=== PATIENT | male | born 1975 | race African-American/Black ===

== ENCOUNTER 2019-06-15 07:31 | Inpatient (IN) ==
--- NOTE | 2019-06-15 07:53 | Emergency Department Note ---
Disposition Clinical Impression: Femoral shaft fracture Qualifiers: Encounter type: initial encounter Fracture type: closed Fracture morphology: oblique Fracture alignment: nondisplaced Laterality: right Qualified Code(s): S72.334A - Nondisplaced oblique fracture of shaft of right femur, initial encounter for closed fracture Disposition: Admitted As Inpatient Condition: Good Time of Disposition: 09:56 Lower Extremity Injury HPI - General Chief Complaint: ED Extremity Injury, Lower Stated Complaint: poss hip fracture Time Seen by Provider: 06/15/19 07:32 Source: EMS Mode of arrival: EMS Limitations: language barrier Nursing Notes Reviewed: Yes Vital Signs Reviewed: Yes - History of Present Illness HPI Narrative: Mr. Prince is a 43 year old male with past medical history of diabetes which appears uncontrolled, gout, COPD, hypertension, bipolar, depression sent by ambulance for right leg pain. Pt recently had right hip displaced femoral neck fracture after a fall and had right hip arthroplasty on 06/05/19 and discharged to rehabilitation and discharged on 06/13/19 went to the ER the same day when he felt right hip pain while he was in shower. Pt was found prostatic femur fracture and was recommended hospitalization for further management yesterday. However pt left against medical advice. Pt tried to stand up this morning but fell from bed again. No weight bearing ever since. Pt decided to come back to ER and stay in hospital at this time. History was obtained through forest fire management officer as well as review of previous charts . Pt Subjective Complaint: hip injury Injury location: Right hip Onset (ago): day(s) (3) - Related Data Home Medications Medication Instructions Recorded Confirmed Albuterol Sulfate [Ventolin Hfa] 2 puff IH Q4H PRN 04/21/19 06/14/19 Allopurinol [Zyloprim 100 MG] 100 mg PO BID 04/21/19 06/14/19 Docusate [Colace] 100 mg PO BID 04/21/19 06/14/19 Escitalopram [Lexapro] 20 mg PO HS 04/21/19 06/14/19 Guaifenesin [Mucinex] 600 mg PO BID PRN 04/21/19 06/14/19 Insulin ASPART [NovoLOG] 0 units SQ QID 04/21/19 06/14/19 Insulin Glargine,Hum.rec.anlog 60 unit SQ BID 04/21/19 06/14/19 [Grace Jeffrey U-100] Liraglutide [Victoza 3-Teja] 1.8 mg SQ DAILY 04/21/19 06/14/19 Losartan Potassium [Cozaar] 50 mg PO DAILY 04/21/19 06/14/19 Omeprazole [PriLOSEC] 20 mg PO BID 04/21/19 06/14/19 Oxycodone HCl/Acetaminophen 1 tab PO QID PRN 04/21/19 06/14/19 [Percocet 10-325 mg Tablet] Ziprasidone HCl [Geodon] 80 mg PO BID 04/21/19 06/14/19 clonazePAM [Clonazepam] 2 mg PO QID 04/21/19 06/14/19 Pravastatin Sodium [Pravachol] 20 mg PO HS 06/04/19 06/14/19 Quetiapine Fumarate [Seroquel Xr] 300 mg PO BID 06/04/19 06/14/19 Bimatoprost [Lumigan] 1 drop BOTH EYES QPM 06/05/19 06/14/19 Diltiazem CD (24hr) [Cardizem CD] 180 mg PO HS 06/05/19 06/14/19 Ergocalciferol (VITAMIN D2) 50,000 unit PO SUWE 06/05/19 06/14/19 [Vitamin D2] Ketoconazole Shampoo [Nizoral 1 appl TP Q48H 06/05/19 06/14/19 Shampoo] Non-Formulary Medication 100 mg PO BID 06/05/19 06/14/19 Vit #108/Iron/FA 1 tab PO DAILY 06/05/19 06/14/19 [ One Tablet] clonazePAM [Clonazepam] 1 mg PO QID PRN 06/05/19 06/14/19 Previous Rx's Medication Instructions Recorded Furosemide [Lasix] 20 mg PO DAILY tablet 06/13/19 Magnesium Oxide [Mag-Ox] 400 mg PO DAILY #7 tablet 06/13/19 Potassium Chloride 20 meq PO BID #60 tab.er.prt 06/13/19 Rivaroxaban [Xarelto] 10 mg PO 1700 #21 tablet 06/13/19 Allergies Allergy/AdvReac Type Severity Reaction Status Date / Time fentanyl AdvReac See Verified 06/05/19 17:34 Comments IV CONTRAST DYE Allergy See Uncoded 06/05/19 17:34 Comments Constitutional: Denies: fever, chills Eyes: Denies: eye pain ENT ED: Denies: ear pain Cardiovascular: Denies: chest pain Respiratory: Denies: cough Gastrointestinal: Denies: abdominal pain Genitourinary: Denies: urgency Musculoskeletal: Reports: joint swelling, arthralgia (Right hip pain). Denies: back pain Integumentary: Denies: rash Neurological: Denies: headache Psychiatric: Denies: anxiety Endocrine: Denies: fatigue Hematological/Lymphatic: Denies: easy bleeding Allergic/Immunologic: Denies: facial swelling Past Medical History - Past Medical History Medical history: Reports: CHF, COPD, diabetes, GERD, glaucoma, hypertension, renal disease, seizures Surgical history: Reports: hip replacement Psychiatric history: Reports: bipolar, depression, other - Social History Smoking Status: Never smoker Smokeless Tobacco Status: No Alcohol use: Reports: rarely Drug use: Reports: none Physical Exam - General Limitations: no limitations General appearance: alert - Head Head exam: atraumatic - Eye Eye exam: Present: normal appearance - ENT ENT exam: normal exam - Neck Neck exam: Present: normal inspection - Chest Chest inspection: Present: normal inspection - Respiratory Respiratory exam: Present: normal lung sounds bilaterally - Cardiovascular Cardiovascular exam: Present: regular rate - Abdominal Exam Abdominal exam: Present: soft, Non-Tender - Expanded Lower Extremity Exam Hip/Pelvis exam: Present: normal inspection, tenderness. Absent: full ROM Neurovascular/Tendon exam: Present: normal capillary refill - Back Exam Back exam: Present: normal inspection, full ROM. Absent: tenderness - Neurological Exam Neurological exam: Present: alert, oriented X3 - Psychiatric Psychiatric exam: Present: normal affect - Skin Skin exam: Present: warm Course Vital Signs Temperature 99.0 F 06/15/19 07:45 Pulse Rate 104 06/15/19 07:45 Respiratory Rate 16 06/15/19 07:45 Blood Pressure 157/104 06/15/19 07:45 O2 Sat by Pulse Oximetry 100 06/15/19 07:45 Temperature 99.0 F 06/15/19 07:45 Pulse Rate 103 06/15/19 10:36 Respiratory Rate 18 06/15/19 10:36 Blood Pressure 158/106 06/15/19 10:36 O2 Sat by Pulse Oximetry 100 06/15/19 10:36 Oxygen Delivery Oxygen Delivery Room Air Extremity Injury, Lower - MDM Narrative Medical decision making narrative: 43-year-old male with right hip replacement, fell, presents with persistent right hip pain and nonweightbearing. Patient was found prostatitic fracture in the femur shaft yesterday. He was admitted to hospital. But patient signed AMA. Patient fell again this morning from bed. Repeat x-ray today indicated worsening displaced fracture fragment. Dr. Felix has seen the patient and agrees to re-admit patient for further evaluation. Spoke with on-call orthopedics Dr. Brown's nurse. Orthopedics is on board. Spoke with hospitalist Dr. Brothers. Pt is accepted. - Differential Diagnosis Likely: fracture - Lab Data Lab results reviewed: Yes I reviewed the patient's lab results. Result diagrams: 06/15/19 08:36 06/15/19 08:36 Lab Results 06/15/19 06/15/19 Range/Units 08:36 08:36 WBC 13.7 H (4.3-11.1) K/mcL RBC 3.74 L (4.19-5.50) M/mcL Hgb 9.9 L (12.9-16.9) g/dL Hct 32.6 L (37.5-50.1) % MCV 87.2 (83.0-100.0) fL MCH 26.5 L (28.0-33.3) pg MCHC 30.4 L (31.6-35.5) g/dL RDW 13.5 (11.5-14.5) % Plt Count 351 (140-400) K/mcL MPV 9.8 (9.4-12.4) fL Immature Gran % 1.9 (0-4) % Seg Neutrophils % 80.1 % Lymphocytes % 10.8 % Monocytes % 6.1 % Eosinophils % 0.8 % Basophils % 0.3 % Neutrophils # 11.0 H (1.6-8.9) K/mcL Lymphocytes # 1.5 (0.6-4.6) K/mcL Monocytes # 0.8 (0.0-1.3) K/mcL Eosinophils # 0.1 (0.0-0.6) K/mcL Basophils # 0.0 (0.0-0.2) K/mcL Sodium 134 L (136-145) mEq/L Potassium 3.9 (3.5-5.1) mEq/L Chloride 101 (98-107) mEq/L Carbon Dioxide 22 L (23-29) mEq/L BUN 14 (6-20) mg/dL Creatinine 0.82 (0.70-1.30) mg/dL Est GFR ( Amer) > 60 (> 60) Est GFR (Non-Af Amer) > 60 (> 60) BUN/Creatinine Ratio 17 (6-26) Glucose 222 H (70-105) mg/dL Calculated Osmolality 285 (280-300) Calcium 9.6 (8.6-10.3) mg/dL Total Bilirubin 0.3 (0.3-1.0) mg/dL AST 28 (13-39) Units/L ALT 23 (7-52) Units/L Alkaline Phosphatase 113 H (34-104) Units/L Serum Total Protein 7.6 (6.4-8.9) g/dL Albumin 3.5 (3.5-5.7) g/dL Globulin 4.1 H (2.4-3.5) g/dL Albumin/Globulin Ratio 0.9 L (1.1-2.2) - Radiology Data Radiology results reviewed: Yes I reviewed the patient's radiology results. HISTORY: ORDERING SYSTEM PROVIDED HISTORY: fell from bed, hip fracture FINDINGS: The bones are osteopenic. Status post right hip arthroplasty. Joint alignment is normal. Mild left hip joint space narrowing. Again seen is periprosthetic fracture involving the medial cortex of the proximal femoral diaphysis. There is radial displacement of the fracture fragments compared to prior study with about 6 mm displacement, previously about 3 mm. Remainder of the right femur is intact. Soft tissue swelling and skin clive seen about the lateral hip. XR/XR femur RT IMPRESSION: Status post right hip arthroplasty with periprosthetic fracture involving the medial proximal femoral cortex. Greater displacement of the fracture fragments compared to yesterday's exam. The findings were sent to the Radiology Results Communication Center at 8:51 am on 06/15/2019to be communicated to a licensed caregiver. D/ / Chato Alejandro MD / Chato Alejandro MD Interpreting Provider: Chato Alejandro MD
--- NOTE | 2019-06-15 08:00 | Emergency Department Note ---
Disposition Clinical Impression: Femoral shaft fracture Qualifiers: Encounter type: initial encounter Fracture type: closed Fracture morphology: oblique Fracture alignment: nondisplaced Laterality: right Qualified Code(s): S72.334A - Nondisplaced oblique fracture of shaft of right femur, initial encounter for closed fracture Disposition: Admitted As Inpatient Forms: ED Satisfaction Letter Time of Disposition: 08:02 General Adult HPI - General Chief complaint: ED Extremity Injury, Lower Stated complaint: poss hip fracture Time Seen by Provider: 06/15/19 07:32 Source: EMS Mode of arrival: EMS Limitations: language barrier Nursing Notes Reviewed: Yes Vital Signs Reviewed: Yes - History of Present Illness HPI Narrative: Attestation note: Patient was seen with the emergency medicine resident/nurse practi tioner/physician assistant passenger locomotive engineer/transitional resident/medical student: Certified nurse practitioner Tae Suazo. I was therefore significant portions of the procedures performed which are to also include EKG and a bedside ultrasound. I have personally performed a face to face evaluation on this patient. I have reviewed and agree with history and physical examination patient management and disposition. Briefly the salient points of the case are as follows: 43-year-old male seen yesterday at [facility] worked up and admitted to the hospitalist service for femoral shaft fracture with callus formation signed out AMA patient returns this morning because too painful to walk. We will repeat some screening labs and contact the hospitalist for readmission. We asked the patient directly what he actually stay and the patient said he would. Admission disposition pending. Pain is controlled. Patient stable. Patient also fell out of bed this morning which was exacerbated the pain and he came in by EMS so NEW imaging will be obtained. Pain Scale: 4 - Related Data Home Medications Medication Instructions Recorded Confirmed Albuterol Sulfate [Ventolin Hfa] 2 puff IH Q4H PRN 04/21/19 06/14/19 Allopurinol [Zyloprim 100 MG] 100 mg PO BID 04/21/19 06/14/19 Docusate [Colace] 100 mg PO BID 04/21/19 06/14/19 Escitalopram [Lexapro] 20 mg PO HS 04/21/19 06/14/19 Guaifenesin [Mucinex] 600 mg PO BID PRN 04/21/19 06/14/19 Insulin ASPART [NovoLOG] 0 units SQ QID 04/21/19 06/14/19 Insulin Glargine,Hum.rec.anlog 60 unit SQ BID 04/21/19 06/14/19 [Basaglar Kwikpen U-100] Liraglutide [Victoza 3-Teja] 1.8 mg SQ DAILY 04/21/19 06/14/19 Losartan Potassium [Cozaar] 50 mg PO DAILY 04/21/19 06/14/19 Omeprazole [PriLOSEC] 20 mg PO BID 04/21/19 06/14/19 Oxycodone HCl/Acetaminophen 1 tab PO QID PRN 04/21/19 06/14/19 [Percocet 10-325 mg Tablet] Ziprasidone HCl [Geodon] 80 mg PO BID 04/21/19 06/14/19 clonazePAM [Clonazepam] 2 mg PO QID 04/21/19 06/14/19 Pravastatin Sodium [Pravachol] 20 mg PO HS 06/04/19 06/14/19 Quetiapine Fumarate [Seroquel Xr] 300 mg PO BID 06/04/19 06/14/19 Bimatoprost [Lumigan] 1 drop BOTH EYES QPM 06/05/19 06/14/19 Diltiazem CD (24hr) [Cardizem CD] 180 mg PO HS 06/05/19 06/14/19 Ergocalciferol (VITAMIN D2) 50,000 unit PO SUWE 06/05/19 06/14/19 [Vitamin D2] Ketoconazole Shampoo [Nizoral 1 appl TP Q48H 06/05/19 06/14/19 Shampoo] Non-Formulary Medication 100 mg PO BID 06/05/19 06/14/19 Vit #108/Iron/FA 1 tab PO DAILY 06/05/19 06/14/19 [ One Tablet] clonazePAM [Clonazepam] 1 mg PO QID PRN 06/05/19 06/14/19 Previous Rx's Medication Instructions Recorded Furosemide [Lasix] 20 mg PO DAILY tablet 06/13/19 Magnesium Oxide [Mag-Ox] 400 mg PO DAILY #7 tablet 06/13/19 Potassium Chloride 20 meq PO BID #60 tab.er.prt 06/13/19 Rivaroxaban [Xarelto] 10 mg PO 1700 #21 tablet 06/13/19 Allergies Allergy/AdvReac Type Severity Reaction Status Date / Time fentanyl AdvReac See Verified 06/05/19 17:34 Comments IV CONTRAST DYE Allergy See Uncoded 06/05/19 17:34 Comments Past Medical History - Past Medical History Medical history: Reports: non-contributory, CHF, COPD, diabetes, GERD, glaucoma, hypertension, renal disease, seizures Surgical history: Reports: hip replacement Psychiatric history: Reports: bipolar, depression, other - Social History Smoking Status: Never smoker Smokeless Tobacco Status: No Alcohol use: Reports: rarely Drug use: Reports: none Physical Exam - General Limitations: language barrier General appearance: alert, in no apparent distress Course Vital Signs Temperature 99.0 F 06/15/19 07:45 Pulse Rate 104 06/15/19 07:45 Respiratory Rate 16 06/15/19 07:45 Blood Pressure 157/104 06/15/19 07:45 O2 Sat by Pulse Oximetry 100 06/15/19 07:45 Temperature 99.0 F 06/15/19 07:45 Pulse Rate 104 06/15/19 07:45 Respiratory Rate 16 06/15/19 07:45 Blood Pressure 157/104 06/15/19 07:45 O2 Sat by Pulse Oximetry 100 06/15/19 07:45 Oxygen Delivery Oxygen Delivery Room Air
[2019-06-15 09:13] LABS: White Blood Count 13.7 K/mcL (4.3-11.1)
[2019-06-15 09:14] LABS: Basophils % 0.3 %; Eosinophils # 0.1 K/mcL (0.0-0.6); Eosinophils % 0.8 %; Hematocrit 32.6 % (37.5-50.1); Hemoglobin 9.9 g/dL (12.9-16.9); Immature Granulocytes % 1.9 % (0-4); Lymphocytes # 1.5 K/mcL (0.6-4.6); Lymphocytes % 10.8 %; Mean Corpuscular HGB Conc 30.4 g/dL (31.6-35.5); Mean Corpuscular Hemoglobin 26.5 pg (28.0-33.3); Mean Corpuscular Volume 87.2 fL (83.0-100.0); Mean Platelet Volume 9.8 fL (9.4-12.4); Monocytes # 0.8 K/mcL (0.0-1.3); Monocytes % 6.1 %; Platelet Count 351 K/mcL (140-400); Red Blood Count 3.74 M/mcL (4.19-5.50); Red Cell Distribution Width 13.5 % (11.5-14.5); Segmented Neutrophils % 80.1 %
[2019-06-15 09:19] LABS: Alanine Aminotransferase 23 Units/L (7-52); Albumin 3.5 g/dL (3.5-5.7); Albumin/Globulin Ratio 0.9 (1.1-2.2); Alkaline Phosphatase 113 Units/L (34-104); Aspartate Amino Transferase 28 Units/L (13-39); BUN/Creatinine Ratio 17 (6-26); Bilirubin,Total 0.3 mg/dL (0.3-1.0); Blood Urea Nitrogen 14 mg/dL (6-20); Calcium 9.6 mg/dL (8.6-10.3); Carbon Dioxide 22 mEq/L (23-29); Chloride 101 mEq/L (98-107); Globulin 4.1 g/dL (2.4-3.5); Glucose 222 mg/dL (70-105); Osmolality,Calculated 285 (280-300); Potassium 3.9 mEq/L (3.5-5.1); Sodium 134 mEq/L (136-145); Total Protein 7.6 g/dL (6.4-8.9); eGFR For African Americans > 60 (> 60); eGFR For Non-African Americans > 60 (> 60)
[2019-06-15] MEDS ORDERED: *HR* HYDROcodone/Acet 5/325 mg TABLET PO ONE (10:00)
--- NOTE | 2019-06-15 10:42 | Internal Med History&Physical ---
Date of Encounter: 06/15/19 Time of Encounter: 10:57 Internal Medicine - H&P: HPI History of present illness: Mr. Prince is a 43 year old male with multiple co morbidities presented for right hip pain and his roommate also heard a "pop" as well. History limited due to patient with mild MRDD and def, and obtained history from customer counter associate. He had recent hip arthroplasty on 06/05/19, discharged to rehab on 06/13/19. He went to the ED on that same day (two days ago) for right hip pain. He almost fell at that time. An x-ray done showed right prosthetic femur fracture and recommended further hospitalization. Patient had Ortho evaluate patient who did not recommend surgery so patient decided to leave , but was AMA. Today patient states pain is 5/10 in severity but can get worse, denies any fall today. Past Med Surg Social Fam HX - Past Medical History Medical history: non-contributory, CHF, COPD, diabetes, GERD, glaucoma, hypertension, renal disease, seizures Additional medical history: CARDIOMEGALY Psychiatric history: bipolar, depression, other - Past Surgical History Surgical History: hip replacement Additional surgical history: Glaucoma surgery right eye. LEFT ELBOW - Social History Smoking Status: Never smoker Smokeless Tobacco Status: No Alcohol use: rarely Drug use: none - Family History Mother Adopted: No Family Member Ethnicity: Non- Living Status: Hx Family Cardiac Disorders: No Hx Family Respiratory Disorders: No Hx Family Cancer: Yes (breast ca and lung ca mets to brain.) Hx Family GI Disorders: No Hx Family Endocrine Disorder: No Hx Family Neuromuscular Disorders: No Hx Family Neurologic Disorders: No Hx Family HEENT Disorders: No Hx Family Autoimmune Disorders: No Father Adopted: No Living Status: Hx Family Cardiac Disorders: No Hx Family Respiratory Disorders: No Hx Family Cancer: No Hx Family GI Disorders: No Hx Family Endocrine Disorder: Yes (DM) Hx Family Neuromuscular Disorders: No Hx Family Neurologic Disorders: No Hx Family HEENT Disorders: No Hx Family Autoimmune Disorders: No Brother Adopted: No Family Member Ethnicity: Non- Living Status: Hx Family Cardiac Disorders: Yes ( at 27 to cardiac event) Hx Family Respiratory Disorders: No Hx Family Cancer: No Hx Family GI Disorders: No Hx Family Endocrine Disorder: No Hx Family Neuromuscular Disorders: No Hx Family Neurologic Disorders: No Hx Family HEENT Disorders: No Hx Family Autoimmune Disorders: No Internal Medicine - H&P: Meds Albuterol Sulfate [Ventolin Hfa] 2 puff IH Q4H PRN 04/21/19 [History] Allopurinol [Zyloprim 100 MG] 100 mg PO BID 04/21/19 [History] Docusate [Colace] 100 mg PO BID 04/21/19 [History] Escitalopram [Lexapro] 20 mg PO HS 04/21/19 [History] Guaifenesin [Mucinex] 600 mg PO BID PRN 04/21/19 [History] Insulin ASPART [NovoLOG] 0 units SQ QID 04/21/19 [History] Insulin Glargine,Hum.rec.anlog [Basaglar Kwikpen U-100] 60 unit SQ BID 04/21/19 [History] Liraglutide [Victoza 3-Teja] 1.8 mg SQ DAILY 04/21/19 [History] Losartan Potassium [Cozaar] 50 mg PO DAILY 04/21/19 [History] Omeprazole [PriLOSEC] 20 mg PO BID 04/21/19 [History] Oxycodone HCl/Acetaminophen [Percocet 10-325 mg Tablet] 1 tab PO QID PRN 04/21/19 [History] Ziprasidone HCl [Geodon] 80 mg PO BID 04/21/19 [History] clonazePAM [Clonazepam] 2 mg PO QID 04/21/19 [History] Pravastatin Sodium [Pravachol] 20 mg PO HS 06/04/19 [History] Quetiapine Fumarate [Seroquel Xr] 300 mg PO BID 06/04/19 [History] Bimatoprost [Lumigan] 1 drop BOTH EYES QPM 06/05/19 [History] Diltiazem CD (24hr) [Cardizem CD] 180 mg PO HS 06/05/19 [History] Ergocalciferol (VITAMIN D2) [Vitamin D2] 50,000 unit PO SUWE 06/05/19 [History] Ketoconazole Shampoo [Nizoral Shampoo] 1 appl TP Q48H 06/05/19 [History] Non-Formulary Medication 100 mg PO BID 06/05/19 [History] Vit #108/Iron/FA [ One Tablet] 1 tab PO DAILY 06/05/19 [History] clonazePAM [Clonazepam] 1 mg PO QID PRN 06/05/19 [History] Furosemide [Lasix] 20 mg PO DAILY tablet 06/13/19 [Rx] Magnesium Oxide [Mag-Ox] 400 mg PO DAILY #7 tablet 06/13/19 [Rx] Potassium Chloride 20 meq PO BID #60 tab.er.prt 06/13/19 [Rx] Rivaroxaban [Xarelto] 10 mg PO 1700 #21 tablet 06/13/19 [Rx] Allergy/AdvReac Type Severity Reaction Status Date / Time fentanyl AdvReac See Verified 06/05/19 17:34 Comments IV CONTRAST DYE Allergy See Uncoded 06/05/19 17:34 Comments ROS unobtainable: other (Limited due to patient def) All Systems PM: A 10-system review of systems was performed and is negative for pertinent findings except as documented above in the HPI. - Constitutional Vitals: Temp Pulse Resp BP Pulse Ox 99.0 F 103 18 158/106 100 06/15/19 07:45 06/15/19 10:36 06/15/19 10:36 06/15/19 10:36 06/15/19 10:36 General appearance: Present: A&O X 3, no acute distress Exam: . - Head Head exam: Present: atraumatic, normocephalic - Eye Eye exam: Present: PERRL, conjuntiva pink, sclera anicteric Pupils: Present: PERRL - Neck Neck exam general surgery: Present: supple, trachea midline. Absent: l ymphadenopathy - Respiratory Respiratory exam: Present: CTAB. Absent: accessory muscle use, rales, rhonchi, wheezes - Cardiovascular Cardiovascular exam: Present: RRR, +S1, +S2. Absent: diastolic murmur, gallop, rubs, systolic murmur - GI/Abdominal GI/Abdominal exam: Present: normal bowel sounds, soft, no peritoneal signs. Absent: distended, tenderness - Extremities Exam Extremities exam: Present: warm, radial pulses palpable and symmetrical. Absent: calf tenderness, cyanotic, pedal edema - Neurological Exam Neurological exam: Present: CN II-XII intact, oriented X3, no focal deficits. Absent: pronater drift, facial droop, speech deficit - Skin Skin exam: Present: dry, intact Additional comments: right hip post-op incisions C/d/i Internal Med - H&P Results - Labs CBC & Chem 7: 06/15/19 08:36 06/15/19 08:36 Labs: Short CBC 06/15/19 Range/Units 08:36 WBC 13.7 H (4.3-11.1) K/mcL Hgb 9.9 L (12.9-16.9) g/dL Hct 32.6 L (37.5-50.1) % Plt Count 351 (140-400) K/mcL Neutrophils # 11.0 H (1.6-8.9) K/mcL BMP 06/15/19 08:36 Sodium 134 L Potassium 3.9 Chloride 101 Carbon Dioxide 22 L BUN 14 Creatinine 0.82 Glucose 222 H Calcium 9.6 Liver Function 06/15/19 Range/Units 08:36 Total Bilirubin 0.3 (0.3-1.0) mg/dL AST 28 (13-39) Units/L ALT 23 (7-52) Units/L Alkaline Phosphatase 113 H (34-104) Units/L Albumin 3.5 (3.5-5.7) g/dL - Impressions ITS Impressions Pelvis X-Ray 06/15/19 08:01 IMPRESSION: Status post right hip arthroplasty with periprosthetic fracture involving the medial proximal femoral cortex. Greater displacement of the fracture fragments compared to yesterday's exam. The findings were sent to the Radiology Results Communication Center at 8:51 am on 06/15/2019to be communicated to a licensed caregiver. D/ / Chato Alejandro MD / Chato Alejandro MD Interpreting Provider: Chato Alejandro MD Femur X-Ray 06/15/19 08:03 IMPRESSION: Status post right hip arthroplasty with periprosthetic fracture involving the medial proximal femoral cortex. Greater displacement of the fracture fragments compared to yesterday's exam. The findings were sent to the Radiology Results Communication Center at 8:51 am on 06/15/2019to be communicated to a licensed caregiver. D/ / Chato Alejandro MD / Chato Alejandro MD Interpreting Provider: Chato Alejandro MD - Assessment and Plan (1) Periprosthetic fracture around internal prosthetic hip joint Current Visit: No Status: Acute Assessment and plan: Recent right hip arthroplasty on 06/05/19, patient left rehab on 06/13 AMA and fell and went to the ED. He was found to have prosthetic femur fracture but patinet left hospital AMA yesterday. Patient now returns for worsening pain. X-ray pelvis today shows right hip arthoplsasty with periprosthetic fracture again but with greater displacement of the fracture compared to yesterday's study. Consult Orthopedic Surgery done in ED. Will give supportive care with pain management. NPO at midnight. Qualifiers: Encounter type: subsequent encounter Qualified Code(s): M97.01XD - Periprosthetic fracture around internal prosthetic right hip joint, subsequent encounter; T84.040D - Periprosthetic fracture around internal prosthetic right hip joint, subsequent encounter (2) Bipolar 1 disorder Current Visit: Yes Status: Acute Assessment and plan: Resume home medications. (3) Anemia Current Visit: No Status: Acute Assessment and plan: Chronic, at baseline. Qualifiers: Anemia type: unspecified type Qualified Code(s): D64.9 - Anemia, unspecified (4) Leukocytosis Current Visit: No Status: Acute Assessment and plan: Likely related to fracture. Low suspicion for infectious etiology. Qualifiers: Leukocytosis type: unspecified Qualified Code(s): D72.829 - Elevated white blood cell count, unspecified (5) Seizure Current Visit: No Status: Acute Assessment and plan: No antiepleptic medications listed but med rec not complete. Will follow-up with med rec. No acute issues. (6) DM type 2 (diabetes mellitus, type 2) Current Visit: No Status: Chronic Assessment and plan: Diabetic diet, ISS. Qualifiers: Diabetes mellitus longterm insulin use: with roasterman use Diabetes mellitus complication status: without complication Qualified Code(s): E11.9 - Type 2 diabetes mellitus without complications; Z79.4 - nursing home (current) use of insulin (7) Hypertension Current Visit: No Status: Chronic Assessment and plan: Resume Cardizem CD when med rec complete. Qualifiers: Hypertension type: essential hypertension Qualified Code(s): I10 - Essential (primary) hypertension (8) DVT prophylaxis Current Visit: No Status: Acute Assessment and plan: Heparin SQ - Time Spent With Patient Total time spent is greater than 50% in coordination of care (as documented) at patient's floor/unit and/or counseling patient:
[2019-06-15] MEDS ORDERED: Naloxone 0.4 MG/ML INJ IVP PRN (11:10)
[2019-06-15] MEDS: *HR* HYDROcodone/Acet 5/325 mg TABLET PO PRN (12:29)
[2019-06-15] MEDS ORDERED: D5% in Water 1,000 ML IVC PRN (12:36)
[2019-06-15] MEDS ORDERED: Dextrose Gel 15 GM/37.5 ML TUBE PO PRN ×2 (12:36)
[2019-06-15] MEDS ORDERED: *HR* Dextrose 50 % in Water (Syg) 50 ML SYRINGE IVP PRN (12:36)
[2019-06-15] MEDS: Insulin LISPRO 300 UNITS/3 ML VIAL SQ SCH ×2 (17:52→21:09)
[2019-06-15] MEDS ORDERED: Ondansetron 4 MG/2 ML VIAL IVP PRN (17:59)
[2019-06-15] MEDS ORDERED: clonazePAM 1 MG TABLET PO PRN (21:19)
[2019-06-16] MEDS: Latanoprost 2.5 ML BOTTLE BOTH EYES SCH ×2 (05:20→17:17)
[2019-06-16] MEDS ORDERED: *HR* Heparin 5,000 UNIT/ML VIAL SQ SCH (06:00)
[2019-06-16] MEDS: Insulin LISPRO 300 UNITS/3 ML VIAL SQ SCH ×4 (08:34→22:42)
[2019-06-16] MEDS: Magnesium Oxide 400 MG TABLET PO SCH (08:48)
[2019-06-16] MEDS: Diltiazem CD (24hr) 180 MG CAPSULE PO SCH (08:48)
[2019-06-16] MEDS: Ziprasidone 80 MG CAPSULE PO SCH ×2 (08:48→22:42)
[2019-06-16] MEDS: *HR* HYDROcodone/Acet 5/325 mg TABLET PO PRN (08:59)
[2019-06-16] MEDS ORDERED: Ondansetron 4 MG/2 ML VIAL IVP PRN (10:08)
--- NOTE | 2019-06-16 13:05 | Internal Med Progress Note ---
<Timoteo Myers N - Last Filed: 06/16/19 16:21> Hospitalist Progress Note - Encounter Date of Encounter: 06/16/19 Time of Encounter: 13:04 - Subjective Interval History: Patient sitting comfortably in bed upon entering room. Conversations with patient through video enrollment management manager. Patient states he is still having some hip pain. Discussed with patient need for Ortho to see to evaluate need for surgery. - Exam Vitals: Temp Pulse Resp BP Pulse Ox 98.3 F 106 16 134/83 96 06/16/19 10:47 06/16/19 10:47 06/16/19 10:47 06/16/19 10:47 06/16/19 10:47 Exam: Head exam:atraumatic, normocephalic Eye exam: PERRL, conjuntiva pink, sclera anicteric Neck exam: supple, trachea midline. Respiratory exam: CTAB. No accessory muscle use, rales, rhonchi, wheezes Cardiovascular exam: RRR, +S1, +S2. GI/Abdominal exam:normal bowel sounds, soft, no peritoneal signs. Extremities exam:warm, radial pulses palpable and symmetrical. Absent: calf tenderness, cyanotic, pedal edema Neurological exam: oriented X3, no focal deficits. - Assessment and Plan (1) Fracture of right hip Current Visit: No Status: Acute Assessment and Plan: Recent right hip arthroplasty on 06/05/19, patient left rehab on 06/13 AMA and fell and went to the ED. Prosthetic femur fracture found but patient left hospital AMA yesterday. Patient now returns for worsening pain. X-ray pelvis today shows right hip arthoplsasty with periprosthetic fracture again but with greater displacement of the fracture compared to yesterday's study. Repeat CT ordered of Hip -NPO at midnight -Ortho consulted, surgery scheduled for 06/[address] Bhagat. (2) Uncontrolled diabetes mellitus Current Visit: No Status: Acute Assessment and Plan: Most recent POC glucose of 162 -Continue sliding scale insulin. -Diabetic Diet (3) Hypertension Current Visit: No Status: Chronic Assessment and Plan: Blood pressure stable since admission -Continue home medications. (4) Hyperlipidemia Current Visit: No Status: Chronic Assessment and Plan: On Zocor 10 mg at home -We will continue home meds (5) Bipolar 1 disorder Current Visit: Yes Status: Acute Assessment and Plan: No issues since admissions. -Continue home medications -Monitor for changes (6) Seizure disorder Current Visit: Yes Status: Acute Assessment and Plan: No seizure activity since admission -Will continue Klonopin and Seroquel from home. -Monitor for changes DVT Prophylaxis: Heparin subcutaneous - Time Spent with Patient Total time spent is greater than 50% in coordination of care (as documented) at patient's floor/unit and/or counseling patient: Internal Medicine: Result - Labs CBC & Chem 7: 06/15/19 08:36 06/15/19 08:36 Consult Discharge Plan - Plan Referrals: NONE,PCP [Primary Care Provider] - <Vangie Warner - Last Filed: 06/16/19 18:32> Hospitalist Progress Note - Encounter Date of Encounter: 06/16/19 - Exam Vitals: Temp Pulse Resp BP Pulse Ox 98.3 F 106 16 134/83 96 06/16/19 10:47 06/16/19 10:47 06/16/19 10:47 06/16/19 10:47 06/16/19 10:47 - Assessment and Plan (1) Hypertension Current Visit: No Status: Chronic (2) DM type 2 (diabetes mellitus, type 2) Current Visit: No Status: Chronic (3) Anemia Current Visit: No Status: Acute (4) Periprosthetic fracture around internal prosthetic hip joint Current Visit: No Status: Acute (5) Leukocytosis Current Visit: No Status: Acute (6) DVT prophylaxis Current Visit: No Status: Acute (7) Seizure Current Visit: No Status: Acute (8) Bipolar 1 disorder Current Visit: Yes Status: Acute - Time Spent with Patient Total time spent is greater than 50% in coordination of care (as documented) at patient's floor/unit and/or counseling patient: Internal Medicine: Result - Labs CBC & Chem 7: 06/15/19 08:36 06/15/19 08:36 - Attending Attestation I have seen and independently assessed this patient and I agree with plan as documented Plan Right hip prosthesis fracture. Ortho on board and plan for right hip revision hemiarthroplasty possible conversion to total hip arthroplasty to be performed by Dr. Bhagat tomorrow 06/17. <Timoteo Myers - Last Filed: 06/16/19 16:21> (1) Fracture of right hip Qualifiers: Encounter type: initial encounter Fracture type: closed Qualified Code(s): S72.001A - Fracture of unspecified part of neck of right femur, initial encounter for closed fracture (2) Uncontrolled diabetes mellitus Qualifiers: Qualified Code(s): E11.65 - Type 2 diabetes mellitus with hyperglycemia (3) Hypertension Qualifiers: Hypertension type: essential hypertension Qualified Code(s): I10 - Essential (primary) hypertension (4) Hyperlipidemia Qualifiers: Hyperlipidemia type: unspecified Qualified Code(s): E78.5 - Hyperlipidemia, unspecified <Vangie Warner A - Last Filed: 06/16/19 18:32> (1) Hypertension Qualifiers: Hypertension type: essential hypertension Qualified Code(s): I10 - Essential (primary) hypertension (2) DM type 2 (diabetes mellitus, type 2) Qualifiers: Diabetes mellitus mcfp insulin use: with mcfp use Diabetes mellitus complication status: without complication Qualified Code(s): E11.9 - Type 2 diabetes mellitus without complications; Z79.4 - local intermodal truck driver (current) use of insulin (3) Anemia Qualifiers: Anemia type: unspecified type Qualified Code(s): D64.9 - Anemia, unspecified (4) Periprosthetic fracture around internal prosthetic hip joint Qualifiers: Encounter type: subsequent encounter Qualified Code(s): M97.01XD - Periprosthetic fracture around internal prosthetic right hip joint, subsequent encounter; T84.040D - Periprosthetic fracture around internal prosthetic right hip joint, subsequent encounter (5) Leukocytosis Qualifiers: Leukocytosis type: unspecified Qualified Code(s): D72.829 - Elevated white blood cell count, unspecified
[2019-06-16] MEDS: clonazePAM 1 MG TABLET PO SCH ×3 (13:31→22:41)
--- NOTE | 2019-06-16 14:49 | Orthopedics Progress Note ---
Date of Encounter: 06/16/19 Time of Encounter: 14:20 - Assessment and Plan (1) Periprosthetic fracture around internal prosthetic hip joint Current Visit: No Status: Acute After most recent fall the proximal femur bone fracture fragment has displaced more and hardware has settled further now requiring surgical intervention. Plan for right hip revision hemiarthroplasty possible conversion to total hip arthroplasty to be performed by Dr. Bhagat tomorrow 06/17. I reviewed the procedure as well as r/b/a with the patient and he expressed understanding. Consent was signed. ok to eat today and will need to be NPO after midnight tonight. NWB to RLE. CT Chapito ordered for surgical planning. Pain control per primary team. *electronic video furniture designer was used for ASL for communication. Qualifiers: Encounter type: subsequent encounter Qualified Code(s): M97.01XD - Periprosthetic fracture around internal prosthetic right hip joint, subsequent encounter; T84.040D - Periprosthetic fracture around internal prosthetic right hip joint, subsequent encounter Subjective Principal diagnosis: right hip periprosthetic fracture Interval history: Patient is s/p right hip hemiarthroplasty by Dr. Livingston on 06/05/19. He was released from [facility] on 06/13/19 and per caregiver patient had only been back to his home for about an hour. He went to walk to the bathroom when his leg became weak and buckled. Per caregiver the other roommates heard an audible crack when this happened. Denies actual fall as apparently someone was beside him to catch him. He did go to the ER 06/13 where the periprosthetic fracture was found. The patient had been given morphine for pain and per caregiver he thinks that after this the patient felt much better and thought he was ok so he felt he did not need to stay any longer and signed out AMA. He came back 06/14 because he was in pain again. He had been walking on leg at this point and new xrays showed a stable fracture so plan was to treat conservatively but would require him to be NWB. Recommended he stay for medical managment and also so he could be placed back into [facility] for rehab. He proceeded to sign out again AMA. As he was leaving he fell again and was recommended he stay for new imaging but he declined and went home. He apparently fell again at home 06/15 and agreed to come back to the hospital and agreed to stay for admission. He states pain is about the same as it has been. Denies any drainage from incision. Leg is weak. No other symptoms at this time. Objective Vital signs: Vital Signs Temp Pulse Resp BP Pulse Ox 06/16/19 10:47 98.3 F 106 16 134/83 96 06/16/19 07:45 98.2 F 102 16 142/90 98 06/16/19 04:17 99.3 F 97 17 149/93 98 06/15/19 22:55 98.1 F 98 17 144/94 98 06/15/19 22:54 29 97 06/15/19 20:06 98.1 F 101 17 142/92 98 Intake and Output 06/15/19 06/16/19 06/16/19 23:59 07:59 15:59 Other: Stool Size Moderate Large Stool Consistency loose loose # Bowel Movement Diapers 1 Weight 106 kg Blood Glucose* 162 153 175 Patient Weight 06/16/19 23:59 Weight 106 kg Incision: healing (Incision to right hip is healing with no erythema or drainage noted. clive in place. pain to palpation of anterior and lateral hip. no calf tenderness to palaption. good dorsiflexion of foot. sensation intact distally) - Labs CBC & BMP: 06/15/19 08:36 06/15/19 08:36 Labs: Abnormal lab results WBC 13.7 K/mcL (4.3-11.1) H 06/15/19 08:36 RBC 3.74 M/mcL (4.19-5.50) L 06/15/19 08:36 Hgb 9.9 g/dL (12.9-16.9) L 06/15/19 08:36 Hct 32.6 % (37.5-50.1) L 06/15/19 08:36 MCH 26.5 pg (28.0-33.3) L 06/15/19 08:36 MCHC 30.4 g/dL (31.6-35.5) L 06/15/19 08:36 Neutrophils # 11.0 K/mcL (1.6-8.9) H 06/15/19 08:36 Sodium 134 mEq/L (136-145) L 06/15/19 08:36 Carbon Dioxide 22 mEq/L (23-29) L 06/15/19 08:36 Glucose 222 mg/dL (70-105) H 06/15/19 08:36 POC Glucose 162 mg/dL (70-99) H 06/15/19 21:02 Alkaline Phosphatase 113 Units/L (34-104) H 06/15/19 08:36 Globulin 4.1 g/dL (2.4-3.5) H 06/15/19 08:36 Albumin/Globulin Ratio 0.9 (1.1-2.2) L 06/15/19 08:36 Consult Discharge Plan - Plan Referrals: NONE,PCP [Primary Care Provider] -
[2019-06-17 02:22] LABS: Hematocrit 30.2 % (37.5-50.1); Hemoglobin 9.2 g/dL (12.9-16.9); Mean Corpuscular HGB Conc 30.5 g/dL (31.6-35.5); Mean Corpuscular Hemoglobin 26.7 pg (28.0-33.3); Mean Corpuscular Volume 87.5 fL (83.0-100.0); Platelet Count 321 K/mcL (140-400); Red Blood Count 3.45 M/mcL (4.19-5.50); Red Cell Distribution Width 13.4 % (11.5-14.5); White Blood Count 10.4 K/mcL (4.3-11.1)
[2019-06-17 02:46] LABS: BUN/Creatinine Ratio 17 (6-26); Blood Urea Nitrogen 13 mg/dL (6-20); Carbon Dioxide 22 mEq/L (23-29); Chloride 103 mEq/L (98-107); Glucose 219 mg/dL (70-105); Osmolality,Calculated 287 (280-300); Potassium 3.4 mEq/L (3.5-5.1); Sodium 135 mEq/L (136-145); eGFR For African Americans > 60 (> 60); eGFR For Non-African Americans > 60 (> 60)
--- NOTE | 2019-06-17 06:41 | Orthopedics Progress Note ---
Date of Encounter: 06/17/19 Time of Encounter: 06:40 Subjective Principal diagnosis: right hip periprosthetic fracture Interval history: Patient seen this morning, with periprosthetic hip fracture with hip subsidence of the femoral component, plan is for revision of femoral component and conversion to total hip replacement. Objective Vital signs: Vital Signs Temp Pulse Resp BP Pulse Ox 06/17/19 04:12 98.8 F 110 17 127/84 97 06/16/19 23:38 13 97 06/16/19 22:39 98.5 F 106 17 135/83 98 06/16/19 18:25 97.7 F 103 18 143/92 100 06/16/19 16:45 97.7 F 105 16 145/89 96 06/16/19 10:47 98.3 F 106 16 134/83 96 06/16/19 07:45 98.2 F 102 16 142/90 98 Intake and Output 06/16/19 06/16/19 06/17/19 15:59 23:59 07:59 Other: Stool Size Large Stool Consistency loose # Urine Diapers 3 # Bowel Movement Diapers 1 1 Weight 106.2 kg Blood Glucose* 175 199 Patient Weight 06/17/19 23:59 Weight 106.2 kg - Labs CBC & BMP: 06/17/19 01:16 06/17/19 01:16 Labs: Abnormal lab results WBC 13.7 K/mcL (4.3-11.1) H 06/15/19 08:36 RBC 3.45 M/mcL (4.19-5.50) L 06/17/19 01:16 Hgb 9.2 g/dL (12.9-16.9) L 06/17/19 01:16 Hct 30.2 % (37.5-50.1) L 06/17/19 01:16 MCH 26.7 pg (28.0-33.3) L 06/17/19 01:16 MCHC 30.5 g/dL (31.6-35.5) L 06/17/19 01:16 Neutrophils # 11.0 K/mcL (1.6-8.9) H 06/15/19 08:36 Sodium 135 mEq/L (136-145) L 06/17/19 01:16 Potassium 3.4 mEq/L (3.5-5.1) L 06/17/19 01:16 Carbon Dioxide 22 mEq/L (23-29) L 06/17/19 01:16 Glucose 219 mg/dL (70-105) H 06/17/19 01:16 POC Glucose 199 mg/dL (70-99) H 06/16/19 19:40 Alkaline Phosphatase 113 Units/L (34-104) H 06/15/19 08:36 Globulin 4.1 g/dL (2.4-3.5) H 06/15/19 08:36 Albumin/Globulin Ratio 0.9 (1.1-2.2) L 06/15/19 08:36 Consult Discharge Plan - Plan Referrals: NONE,PCP [Primary Care Provider] -
[2019-06-17] MEDS: Diltiazem CD (24hr) 180 MG CAPSULE PO SCH (09:05)
[2019-06-17] MEDS: clonazePAM 1 MG TABLET PO SCH ×3 (09:05→17:44)
[2019-06-17] MEDS: Ziprasidone 80 MG CAPSULE PO SCH (09:05)
[2019-06-17] MEDS: Magnesium Oxide 400 MG TABLET PO SCH (09:07)
[2019-06-17] MEDS: Insulin LISPRO 300 UNITS/3 ML VIAL SQ SCH ×3 (09:08→16:44)
--- NOTE | 2019-06-17 09:32 | Internal Med Progress Note ---
<Timoteo Myers N - Last Filed: 06/17/19 13:32> Hospitalist Progress Note - Encounter Date of Encounter: 06/17/19 Time of Encounter: 09:31 - Subjective Interval History: Patient resting comfortably in bed upon entering room. travelift operator is used during conversation. Discussed with patient that he will be having surg henry later today and he states he is ready. Patient states he his having a small amount of diarrhea, but we discussed that surgery can sometime lead to constipation and we would prefer not to give anti-diarrheal medications at this time. Patient understands. Patient denies chest pain, shortness of breath, abdominal pain, nausea, vomiting, fever, or chills. - Exam Vitals: Temp Pulse Resp BP Pulse Ox 98.7 F 109 17 125/79 94 06/17/19 06:54 06/17/19 06:54 06/17/19 06:54 06/17/19 06:54 06/17/19 06:54 Exam: Head exam:atraumatic, normocephalic Eye exam: PERRL, conjuntiva pink, sclera anicteric Neck exam: supple, trachea midline. Respiratory exam: CTAB. No accessory muscle use, rales, rhonchi, wheezes Cardiovascular exam: RRR, +S1, +S2. GI/Abdominal exam:normal bowel sounds, soft, no peritoneal signs. Extremities exam:warm, radial pulses palpable and symmetrical. Right hip shortened and externally rotated Absent: calf tenderness, cyanotic, pedal edema Neurological exam: oriented X3, no focal deficits. - Assessment and Plan (1) Fracture of right hip Current Visit: No Status: Acute Assessment and Plan: Recent right hip arthroplasty on 06/05/19, patient left rehab on 06/13 AMA and fell and went to the ED. Prosthetic femur fracture found but patient left hospital AMA yesterday. Patient now returns for worsening pain. X-ray pelvis today shows right hip arthoplsasty with periprosthetic fracture again but with greater displacement of the fracture compared to previous study. Repeat CT of hip showed a mildly displaced sagittal oblique periprosthetic fracture through the medial aspect of the proximal femur. -Ortho consulted, Dr. Bhagat to perform surgery today. (2) Uncontrolled diabetes mellitus Current Visit: No Status: Acute Assessment and Plan: Last A1C on 06/05 was 13.1 Most recent POC glucose of 219 -Continue sliding scale insulin. -Diabetic Diet (3) Hypertension Current Visit: No Status: Chronic Assessment and Plan: Blood pressure stable since admission -Continue home medications. (4) Hyperlipidemia Current Visit: No Status: Chronic Assessment and Plan: On Zocor 10 mg at home -We will continue home meds (5) Bipolar 1 disorder Current Visit: Yes Status: Chronic Assessment and Plan: No issues since admissions. -Continue home medications -Monitor for changes (6) Seizure disorder Current Visit: Yes Status: Chronic Assessment and Plan: No seizure activity since admission -Will continue Klonopin and Seroquel from home. -Monitor for changes DVT Prophylaxis: Heparin subcutaneous - Time Spent with Patient Total time spent is greater than 50% in coordination of care (as documented) at patient's floor/unit and/or counseling patient: Internal Medicine: Result - Labs CBC & Chem 7: 06/17/19 01:16 06/17/19 01:16 Labs: Short CBC 06/17/19 Range/Units 01:16 WBC 10.4 (4.3-11.1) K/mcL Hgb 9.2 L (12.9-16.9) g/dL Hct 30.2 L (37.5-50.1) % Plt Count 321 (140-400) K/mcL BMP 06/17/19 01:16 Sodium 135 L Potassium 3.4 L Chloride 103 Carbon Dioxide 22 L BUN 13 Creatinine 0.76 Glucose 219 H Calcium 9.0 - Impressions Impressions Hip CT 06/16/19 12:29 IMPRESSION: Status post right hip bipolar hemiarthroplasty with an acute mildly displaced sagittal oblique periprosthetic fracture through the medial aspect of the proximal femur. D/ / Gallo Lind MD / Gallo Lind MD Interpreting Provider: Gallo Lind MD Consult Discharge Plan - Plan Referrals: NONE,PCP [Primary Care Provider] - <Vangie Warner - Last Filed: 06/17/19 14:25> Hospitalist Progress Note - Encounter Date of Encounter: 06/17/19 - Exam Vitals: Temp Pulse Resp BP Pulse Ox 98.4 F 97 17 131/84 94 06/17/19 10:15 06/17/19 10:15 06/17/19 10:15 06/17/19 10:15 06/17/19 10:15 - Assessment and Plan (1) Hypertension Current Visit: No Status: Chronic (2) DM type 2 (diabetes mellitus, type 2) Current Visit: No Status: Chronic (3) Anemia Current Visit: No Status: Acute (4) Periprosthetic fracture around internal prosthetic hip joint Current Visit: No Status: Acute (5) Leukocytosis Current Visit: No Status: Acute (6) DVT prophylaxis Current Visit: No Status: Acute (7) Seizure Current Visit: No Status: Acute (8) Bipolar 1 disorder Current Visit: Yes Status: Chronic - Time Spent with Patient Total time spent is greater than 50% in coordination of care (as documented) at patient's floor/unit and/or counseling patient: Internal Medicine: Result - Labs CBC & Chem 7: 06/17/19 01:16 06/17/19 01:16 Labs: Short CBC 06/17/19 Range/Units 01:16 WBC 10.4 (4.3-11.1) K/mcL Hgb 9.2 L (12.9-16.9) g/dL Hct 30.2 L (37.5-50.1) % Plt Count 321 (140-400) K/mcL BMP 06/17/19 01:16 Sodium 135 L Potassium 3.4 L Chloride 103 Carbon Dioxide 22 L BUN 13 Creatinine 0.76 Glucose 219 H Calcium 9.0 - Impressions Impressions Hip CT 06/16/19 12:29 IMPRESSION: Status post right hip bipolar hemiarthroplasty with an acute mildly displaced sagittal oblique periprosthetic fracture through the medial aspect of the proximal femur. D/ / Gallo Lind MD / Gallo Lind MD Interpreting Provider: aGllo Lind MD - Attending Attestation I have seen and independently assessed this patient and I agree with plan as documented Plan Right hip prosthesis fracture. Ortho on board and plan for right hip revision hemiarthroplasty possible conversion to total hip arthroplasty to be performed by Dr. Bhagat today. <Timoteo Myers - Last Filed: 06/17/19 13:32> (1) Fracture of right hip Qualifiers: Encounter type: initial encounter Fracture type: closed Qualified Code(s): S72.001A - Fracture of unspecified part of neck of right femur, initial encounter for closed fracture (2) Uncontrolled diabetes mellitus Qualifiers: Qualified Code(s): E11.65 - Type 2 diabetes mellitus with hyperglycemia (3) Hypertension Qualifiers: Hypertension type: essential hypertension Qualified Code(s): I10 - Essential (primary) hypertension (4) Hyperlipidemia Qualifiers: Hyperlipidemia type: unspecified Qualified Code(s): E78.5 - Hyperlipidemia, unspecified <Vangie Warner A - Last Filed: 06/17/19 14:25> (1) Hypertension Qualifiers: Hypertension type: essential hypertension Qualified Code(s): I10 - Essential (primary) hypertension (2) DM type 2 (diabetes mellitus, type 2) Qualifiers: Diabetes mellitus senior care insulin use: with valet service attendant use Diabetes mellitus complication status: without complication Qualified Code(s): E11.9 - Type 2 diabetes mellitus without complications; Z79.4 - skilled nursing (current) use of insulin (3) Anemia Qualifiers: Anemia type: unspecified type Qualified Code(s): D64.9 - Anemia, unspecified (4) Periprosthetic fracture around internal prosthetic hip joint Qualifiers: Encounter type: subsequent encounter Qualified Code(s): M97.01XD - Periprosthetic fracture around internal prosthetic right hip joint, subsequent encounter; T84.040D - Periprosthetic fracture around internal prosthetic right hip joint, subsequent encounter (5) Leukocytosis Qualifiers: Leukocytosis type: unspecified Qualified Code(s): D72.829 - Elevated white blood cell count, unspecified
[2019-06-17] MEDS ORDERED: Potassium Chloride Elixir 20 MEQ/15 ML UDC PO SCH (09:45)
[2019-06-17] MEDS ORDERED: Potassium Chloride 20 MEQ, Lidocaine 1% 2 ML in D5% in Water 250 ML IVPB ONE (10:01)
--- NOTE | 2019-06-17 17:18 | Anesthesia Evaluation PreOp ---
Date of Encounter: 06/17/19 Time of Encounter: 17:15 - Past History Planned Operation: Revision Hip Rt Robotic Cardiac History: HTN, Hyperlipidemia Pulmonary History: COPD YARROW GATHERER History: Seizures, Other (Deaf) Other Medical History: Diabetes Type II, Thyroid, GERD, Other (Bipolar) Anesthesia History: No Prior Anesthetic Complications Alcohol Use: rarely Drug use: none Medications and Allergies Albuterol Sulfate [Ventolin Hfa] 2 puff IH Q4H PRN 04/21/19 [History] Allopurinol [Zyloprim 100 MG] 100 mg PO BID 04/21/19 [History] Docusate [Colace] 100 mg PO BID 04/21/19 [History] Escitalopram [Lexapro] 20 mg PO HS 04/21/19 [History] Guaifenesin [Mucinex] 600 mg PO BID PRN 04/21/19 [History] Insulin ASPART [NovoLOG] 0 units SQ QID 04/21/19 [History] Insulin Glargine,Hum.rec.anlog [Basaglar Kwikpen U-100] 60 unit SQ BID 04/21/19 [History] Liraglutide [Victoza 3-Teja] 1.8 mg SQ DAILY 04/21/19 [History] Losartan Potassium [Cozaar] 50 mg PO DAILY 04/21/19 [History] Omeprazole [PriLOSEC] 20 mg PO BID 04/21/19 [History] Oxycodone HCl/Acetaminophen [Percocet 10-325 mg Tablet] 1 tab PO QID PRN 04/21/19 [History] Ziprasidone HCl [Geodon] 80 mg PO BID 04/21/19 [History] clonazePAM [Clonazepam] 2 mg PO QID 04/21/19 [History] Pravastatin Sodium [Pravachol] 20 mg PO HS 06/04/19 [History] Quetiapine Fumarate [Seroquel Xr] 300 mg PO BID 06/04/19 [History] Bimatoprost [Lumigan] 1 drop BOTH EYES QPM 06/05/19 [History] Ergocalciferol (VITAMIN D2) [Vitamin D2] 50,000 unit PO SUWE 06/05/19 [History] Ketoconazole Shampoo [Nizoral Shampoo] 1 appl TP Q48H 06/05/19 [History] Non-Formulary Medication 100 mg PO BID 06/05/19 [History] Vit #108/Iron/FA [ One Tablet] 1 tab PO DAILY 06/05/19 [History] clonazePAM [Clonazepam] 1 mg PO QID PRN 06/05/19 [History] Furosemide [Lasix] 20 mg PO DAILY tablet 06/13/19 [Rx] Magnesium Oxide [Mag-Ox] 400 mg PO DAILY #7 tablet 06/13/19 [Rx] Potassium Chloride 20 meq PO BID #60 tab.er.prt 06/13/19 [Rx] Rivaroxaban [Xarelto] 10 mg PO 1700 #21 tablet 06/13/19 [Rx] Diltiazem HCl [Cardizem LA] 180 mg PO DAILY 06/15/19 [History] Allergy/AdvReac Type Severity Reaction Status Date / Time fentanyl AdvReac See Verified 06/05/19 17:34 Comments IV CONTRAST DYE Allergy See Uncoded 06/05/19 17:34 Comments - Meds/Allergy Pre-op Review Medications Reviewed: Yes Allergies Reviewed: Yes Beta Blockers on Current Med List: No Anesthesia Results - Labs 06/17/19 01:16 06/17/19 01:16 Laboratory Tests 06/17/19 06/17/19 01:16 01:16 Hgb 9.2 L Hct 30.2 L Plt Count 321 Sodium 135 L Potassium 3.4 L BUN 13 Creatinine 0.76 - Imaging EKG: report reviewed (Sinus Tach) Additional studies: Stress Test 2017 EF 58%, negative Anesthesia Exam Vital Signs/O2 Sat/Glucose, Most Current Temp Pulse Resp BP Pulse Ox 06/17/19 14:32 98.8 F 106 16 146/92 97 Height: 6'3 Weight: 234 lbs NPO (# of Hours): MN Pain Scale: 0 - HEENT Pupil (Motor): Pupils equal, EOMI Mallampati: II Teeth: Normal Oral Opening: Greater than 3 - YARROW GATHERER LOC: Oriented YARROW GATHERER Motor: Normal RUE, Normal LUE, Normal RLE, Normal LLE, Normal Face YARROW GATHERER Sensory: Normal: RUE, LUE, RLE, LLE, Face - Cardiac Rhythm: Regular Murmur: None JVD: No Carotid Bruit: No - Pulmonary Breath Sounds: bilateral Clear Respiratory Effort: Symmetrical Anesthesia Assess/Plan ASA Score: 3 (COPD HTN, Deaf) Level of consciousness: Cooperative, Oriented Anesthetic Plan: General Reason for No Neuroaxial/Regional Block: Other (Deafness Bipolar) Autologous Blood: Yes Monitoring Plan: Standard Monitors Recovery Plan: PACU (Discussed GA, agrees to proceed)
[2019-06-17] MEDS ORDERED: Ethanol\\Acetic Acid\\Na Ace\\Ben 1,000 ML IRRIG.SOLN IR ONE (17:27)
[2019-06-17] MEDS ORDERED: Acetaminophen IV 1,000 MG/100 ML INFUS..BTL ONE (17:34)
[2019-06-17] MEDS ORDERED: Famotidine 20 MG/2 ML VIAL ONE (17:34)
[2019-06-17] MEDS ORDERED: *HR* Propofol 200 MG/20 ML VIAL IVP ONE (17:42)
[2019-06-17] MEDS ORDERED: *HR* FentaNYL (PF) 100 MCG/2 ML VIAL ONE (17:42)
[2019-06-17] MEDS ORDERED: *HR* Midazolam HCl 2 MG/2 ML VIAL ONE (17:42)
[2019-06-17] MEDS ORDERED: Lidocaine -MPF 2% 2 ML VIAL ONE (17:43)
[2019-06-17] MEDS ORDERED: Lidocaine -MPF 4% 5 ML AMPUL ONE (17:43)
[2019-06-17] MEDS: Latanoprost 2.5 ML BOTTLE BOTH EYES SCH (17:44)
[2019-06-17] MEDS ORDERED: *HR* Rocuronium Bromide 50 MG/5 ML VIAL ONE (18:00)
[2019-06-17] MEDS ORDERED: *HR* PHENYLEPHRINE 1,000 MCG/10 ML SYRINGE IVP ONE (18:17)
[2019-06-17] MEDS ORDERED: CeFAZolin Syr 2,000MG/20 ML 2,000 MG/20 ML SYRINGE IVPB ONE (18:39)
[2019-06-17] MEDS ORDERED: Propofol 500 MG/50 ML INFUS..BTL ONE (19:03)
[2019-06-17] MEDS ORDERED: Ondansetron 4 MG/2 ML VIAL ONE (19:08)
[2019-06-17] MEDS ORDERED: Esmolol 100 MG/10 ML VIAL IVP ONE (19:10)
[2019-06-17] MEDS ORDERED: Ondansetron 4 MG/2 ML VIAL IVP ONE (19:13)
[2019-06-17] MEDS ORDERED: Dexamethasone 4 MG/ML VIAL IVP ONE (19:13)
[2019-06-17] MEDS ORDERED: *HR* OxyCODONE Immed Rel 5 MG TABLET PO PRN (19:13)
[2019-06-17] MEDS ORDERED: Morphine Sulfate 2 MG/ML SYRINGE IVP PRN (19:13)
--- NOTE | 2019-06-17 19:15 | Orthopedic Operative Note ---
Date of procedure: 06/17/19 Pre-op diagnosis: Periprosthetic right femur fracture with femoral stem subsidence Post-op diagnosis: same Procedure: Procedure: Right revision femoral hip component Estimated blood loss: 300 cc Hardware: Metal and polyethylene replacement. Steffanie, 18 x 195 denominational modular stem, 25+0 body, +0 head with a 50 bipolar head one GRAYSON drain Procedural Notes: Proximal femur fracture periprosthetic with subsidence of femoral component Operative procedure: The patient was brought to the operating room and placed on the operating room table. After general anesthesia was administered the patient was placed in the lateral decubitus position with the operative leg up. All pressure points were padded appropriately and the head was stabilized in the neutral position. The operative extremity was prepped and draped in the sterile surgical fashion patient received IV antibiotic prior to skin incision. A standard posterior approach is made to the operative hip, through the old incision. Which was extended both proximally and distally. The incision was made through the skin and subcutaneous tissue hemostasis was obtained with Bovie cautery. Using careful sharp dissection the fascia was identified and incised patient had scar tissue within the posterior aspect. This was resected. Cultures were obtained at the level hip joint, normal joint fluid was encountered Gram stain was negative for bacteria. Hip was brought into internal rotation. Soft tissue was removed from around the proximal femur. The femoral component was loose, was removed withoutincident.. The femur was reamed distally up to a size 195 x 18, the stem was impacted in place. Trial reduction with a 25+0 cone body revealed the hip to be relocatable. The real 25 mm +0 cone body was impacted in place in 20 degrees of anteversion trial reduction revealed excellent stability with a +0 metal head with the 50 bipolar head. The trials were removed and the real implants were impacted in place. The hip was reduced, patient had apparent equal leg lengths. The hip had excellent stability with forward flexion to 90 degrees adduction of 30 degrees and internal rotation of 60 degrees. The hip had no shuck. The hip sat for 2 minutes with a antibacterial solution, it was irrigated out with pulse irrigation with a second anti-bacterial solution. It was irrigated out with 2 L of pulse irrigation. Fascia was closed with a running #2 PDS suture. Over a GRAYSON drain. The PA close the hip. The deep tissue was irrigated and closed deep with #1 PDS suture superficially with 0 PDS suture and skin was closed with Dermabond and skin clive. The patient was placed in a sterile dressing and abduction pillow. The patient was extubated and transferred to the recovery room in stable condition. Anesthesia: GETA Surgeon: Blake Bhagat Was there an personal assistant present: No Estimated blood loss (cc): 300 Condition: stable Disposition: PACU
--- NOTE | 2019-06-17 20:30 | Anesthesia Evaluation Post Op ---
Date of Encounter: 06/17/19 Time of Encounter: 20:30 - Vital Signs Vital Signs: Vital Signs/O2 Sat/Glucose, Most Current Temp Pulse Resp BP Pulse Ox 06/17/19 20:21 99.4 F 105 18 97 06/17/19 20:11 108 14 142/85 100 06/17/19 20:01 105 18 134/79 100 06/17/19 19:51 98.7 F 103 20 125/84 100 - Lungs Lungs: Clear Ascult./Percussion - Airway Airway: Non-obstructed - Cardiovascular Regular Rate - Mental Status Mental Status: Alert & Oriented, Answers Appropriately - Pain Pain Scale: 4 - Nausea Vomiting Nausea Vomiting: Not Present - Hydration Hydration: NPO - Discharge PostOp Status: Transfer Patient to floor
[2019-06-17 20:32] LABS: Hematocrit 28.9 % (37.5-50.1); Hemoglobin 8.8 g/dL (12.9-16.9)
[2019-06-17] MEDS ORDERED: *HR* Promethazine 25 MG/ML VIAL IVP PRN (20:55)
[2019-06-17] MEDS ORDERED: Ringers Solution, Lactated 1,000 ML IVC SCH (20:55)
[2019-06-17] MEDS ORDERED: Sennosides 8.6 MG TABLET PO PRN (20:55)
[2019-06-17] MEDS ORDERED: Temazepam 15 MG CAPSULE PO PRN (21:00)
[2019-06-17] MEDS ORDERED: MOM Conc 10 ML UD.LIQ PO PRN (21:00)
[2019-06-17] MEDS ORDERED: *HR* OxyCODONE/APAP 5/325 TABLET PO PRN (21:15)
[2019-06-17] MEDS: *HR* OxyCODONE Immed Rel 5 MG TABLET PO PRN (21:24)
[2019-06-17] MEDS ORDERED: *HR* OxyCODONE Immed Rel 5 MG TABLET PO ONE (23:18)
[2019-06-17] MEDS: Ciprofloxacin HCL Soln 5 ML BOTTLE BOTH EYES SCH (23:52)
[2019-06-18] MEDS ORDERED: Ciprofloxacin HCL Soln 5 ML BOTTLE RIGHT EYE SCH
[2019-06-18] MEDS: Ciprofloxacin HCL Soln 5 ML BOTTLE BOTH EYES SCH ×5 (04:53→20:49)
[2019-06-18] MEDS: traMADol 50 MG TABLET PO PRN ×2 (04:57→15:17)
--- NOTE | 2019-06-18 08:31 | Internal Med Progress Note ---
Hospitalist Progress Note - Encounter Date of Encounter: 06/18/19 Time of Encounter: 09:00 - Subjective Interval History: s/p hip surgery in last 24hrs - Exam Vitals: Temp Pulse Resp BP Pulse Ox 98.2 F 101 16 126/87 98 06/18/19 06:33 06/18/19 06:33 06/18/19 06:33 06/18/19 06:33 06/18/19 06:33 Exam: GEN: NAD Head exam:atraumatic, normocephalic Eye exam: PERRL, conjuntiva pink, sclera anicteric Neck exam: supple, trachea midline. Respiratory exam: CTAB. No accessory muscle use, rales, rhonchi, wheezes Cardiovascular exam: RRR, +S1, +S2. GI/Abdominal exam:normal bowel sounds, soft, no peritoneal signs. Extremities exam:right hip drssing in place with drain Neurological exam: oriented X3, no focal deficits. - Assessment and Plan (1) Periprosthetic fracture around internal prosthetic hip joint Current Visit: Yes Status: Acute Assessment and Plan: Recent right hip arthroplasty on 06/05/19, patient left rehab on 06/13 AMA and fell and went to the ED. He was found to have prosthetic femur fracture but patient left hospital AMA on 06/13. Patient returned for worsening pain. X-ray pelvis today shows right hip arthoplsasty with periprosthetic fracture again but with greater displacement of the fracture. He is s/p Right revision f emoral hip component surgery by orthopedic surgery on 06/17 Tolerated procedure well. Plan for rehab (2) Hypertension Current Visit: Yes Status: Chronic Assessment and Plan: Resume Cardizem CD when med rec complete. (3) DM type 2 (diabetes mellitus, type 2) Current Visit: Yes Status: Chronic Assessment and Plan: Diabetic diet, ISS. (4) Anemia Current Visit: Yes Status: Acute Assessment and Plan: Chronic, at baseline. (5) Leukocytosis Current Visit: Yes Status: Acute Assessment and Plan: Likely related to fracture. Low suspicion for infectious etiology. (6) Bipolar 1 disorder Current Visit: Yes Status: Chronic Assessment and Plan: Resume home medications. (7) DVT prophylaxis Current Visit: Yes Status: Acute Assessment and Plan: Heparin SQ DVT Prophylaxis: Heparin subcutaneous - Time Spent with Patient Total time spent is greater than 50% in coordination of care (as documented) at patient's floor/unit and/or counseling patient: Internal Medicine: Result - Labs CBC & Chem 7: 06/18/19 08:43 06/18/19 08:43 Labs: Short CBC 06/17/19 Range/Units 20: Hgb 8.8 L (12.9-16.9) g/dL Hct 28.9 L (37.5-50.1) % - Impressions Impressions Hip X-Ray 06/17/19 17:40 IMPRESSION: Status post interval right total hip arthroplasty revision with long stem femoral component. Periprosthetic fracture in the proximal femur with about 9 mm displacement of the fracture fragments. D/ / Chato Alejandro MD / Chtao Alejandro MD Interpreting Provider: Chato Alejandro MD Consult Discharge Plan - Plan Referrals: NONE,PCP [Primary Care Provider] - (1) Periprosthetic fracture around internal prosthetic hip joint Qualifiers: Encounter type: subsequent encounter Qualified Code(s): M97.01XD - Periprosthetic fracture around internal prosthetic right hip joint, subsequent encounter; T84.040D - Periprosthetic fracture around internal prosthetic right hip joint, subsequent encounter (2) Hypertension Qualifiers: Hypertension type: essential hypertension Qualified Code(s): I10 - Essential (primary) hypertension (3) DM type 2 (diabetes mellitus, type 2) Qualifiers: Diabetes mellitus long-term insulin use: with long-term use Diabetes mellitus complication status: without complication Qualified Code(s): E11.9 - Type 2 diabetes mellitus without complications; Z79.4 - FDC (current) use of insulin (4) Anemia Qualifiers: Anemia type: unspecified type Qualified Code(s): D64.9 - Anemia, unspecified (5) Leukocytosis Qualifiers: Leukocytosis type: unspecified Qualified Code(s): D72.829 - Elevated white blood cell count, unspecified
[2019-06-18] MEDS: Ascorbic Acid 500 MG TABLET PO SCH ×2 (08:47→17:23)
[2019-06-18] MEDS: Multivit/Ca/Min/Fe/FA 1 TAB TABLET PO SCH (08:47)
[2019-06-18 08:57] LABS: Hematocrit 26.5 % (37.5-50.1); Hemoglobin 8.1 g/dL (12.9-16.9); Mean Corpuscular HGB Conc 30.6 g/dL (31.6-35.5); Mean Corpuscular Hemoglobin 26.5 pg (28.0-33.3); Mean Corpuscular Volume 86.6 fL (83.0-100.0); Mean Platelet Volume 9.4 fL (9.4-12.4); Platelet Count 339 K/mcL (140-400); Red Blood Count 3.06 M/mcL (4.19-5.50); Red Cell Distribution Width 13.5 % (11.5-14.5); White Blood Count 14.9 K/mcL (4.3-11.1)
[2019-06-18 09:16] LABS: BUN/Creatinine Ratio 14 (6-26); Blood Urea Nitrogen 11 mg/dL (6-20); Calcium 8.6 mg/dL (8.6-10.3); Carbon Dioxide 23 mEq/L (23-29); Chloride 97 mEq/L (98-107); Glucose 251 mg/dL (70-105); Osmolality,Calculated 274 (280-300); Potassium 3.9 mEq/L (3.5-5.1); Sodium 128 mEq/L (136-145); eGFR For African Americans > 60 (> 60); eGFR For Non-African Americans > 60 (> 60)
[2019-06-18] MEDS: clonazePAM 1 MG TABLET PO SCH ×3 (13:21→20:49)
[2019-06-18] MEDS: *HR* OxyCODONE Immed Rel 5 MG TABLET PO PRN (17:23)
[2019-06-18] MEDS: *HR* Rivaroxaban 10 MG TABLET PO SCH (17:27)
[2019-06-18] MEDS: Ketoconazole Shampoo 120 ML BOTTLE TP SCH (17:28)
[2019-06-18] MEDS ORDERED: *HR* OxyCODONE/APAP 10/325 TABLET PO PRN (18:01)
[2019-06-18] MEDS: Insulin DETEMIR 100 UNIT/ML X5UNITS SQ SCH (20:49)
[2019-06-19 01:29] LABS: Hemoglobin 7.7 g/dL (12.9-16.9); Mean Corpuscular HGB Conc 30.8 g/dL (31.6-35.5); Mean Corpuscular Hemoglobin 26.3 pg (28.0-33.3); Mean Corpuscular Volume 85.3 fL (83.0-100.0); Mean Platelet Volume 9.8 fL (9.4-12.4); Platelet Count 325 K/mcL (140-400); Red Blood Count 2.93 M/mcL (4.19-5.50); Red Cell Distribution Width 13.3 % (11.5-14.5); White Blood Count 12.5 K/mcL (4.3-11.1)
[2019-06-19 01:44] LABS: BUN/Creatinine Ratio 11 (6-26); Blood Urea Nitrogen 8 mg/dL (6-20); Calcium 8.5 mg/dL (8.6-10.3); Carbon Dioxide 23 mEq/L (23-29); Chloride 98 mEq/L (98-107); Glucose 178 mg/dL (70-105); Osmolality,Calculated 271 (280-300); Potassium 3.5 mEq/L (3.5-5.1); Sodium 129 mEq/L (136-145); eGFR For African Americans > 60 (> 60); eGFR For Non-African Americans > 60 (> 60)
[2019-06-19] MEDS: traMADol 50 MG TABLET PO PRN (06:41)
--- NOTE | 2019-06-19 08:46 | Internal Med Progress Note ---
Hospitalist Progress Note - Encounter Date of Encounter: 06/19/19 Time of Encounter: 09:00 - Subjective Interval History: No acute events overnight - Exam Vitals: Temp Pulse Resp BP Pulse Ox 99.5 F 113 23 143/89 96 06/19/19 03:09 06/19/19 03:09 06/19/19 05:07 06/19/19 03:09 06/19/19 05:07 Exam: GEN: NAD Head exam:atraumatic, normocephalic Eye exam: PERRL, conjuntiva pink, sclera anicteric Neck exam: supple, trachea midline. Respiratory exam: CTAB. No accessory muscle use, rales, rhonchi, wheezes Cardiovascular exam: RRR, +S1, +S2. GI/Abdominal exam:normal bowel sounds, soft, no peritoneal signs. Extremities exam:right hip drssing in place with drain Neurological exam: oriented X3, no focal deficits. - Assessment and Plan (1) Periprosthetic fracture around internal prosthetic hip joint Current Visit: Yes Status: Acute Assessment and Plan: Recent right hip arthroplasty on 06/05/19, patient left rehab on 06/13 AMA and fell and went to the ED. He was found to have prosthetic femur fracture but patient left hospital AMA on 06/13. Patient returned for worsening pain. X-ray pelvis today shows right hip arthoplsasty with periprosthetic fracture again but with greater displacement of the fracture. He is s/p Right revision femoral hip component surgery by orthopedic surgery on 06/17 Tolerated procedure well. Plan for rehab (2) Hypertension Current Visit: Yes Status: Chronic Assessment and Plan: Resume Cardizem CD when med rec complete. (3) DM type 2 (diabetes mellitus, type 2) Current Visit: Yes Status: Chronic Assessment and Plan: Diabetic diet, ISS. (4) Anemia Current Visit: Yes Status: Acute Assessment and Plan: Chronic, at baseline. (5) Leukocytosis Current Visit: Yes Status: Acute Assessment and Plan: Likely related to fracture. Low suspicion for infectious etiology. (6) Bipolar 1 disorder Current Visit: Yes Status: Chronic Assessment and Plan: Resume home medications. (7) Hyponatremia Current Visit: Yes Status: Acute Assessment and Plan: Resolving. Hold Iv fluids (8) DVT prophylaxis Current Visit: Yes Status: Acute Assessment and Plan: Heparin SQ - Time Spent with Patient Total time spent is greater than 50% in coordination of care (as documented) at patient's floor/unit and/or counseling patient: Internal Medicine: Result - Labs CBC & Chem 7: 06/19/19 00:42 06/19/19 00:42 Labs: Short CBC 06/18/19 06/19/19 Range/Units 08:43 00:42 WBC 14.9 H 12.5 H (4.3-11.1) K/mcL Hgb 8.1 L 7.7 L (12.9-16.9) g/dL Hct 26.5 L 25.0 L (37.5-50.1) % Plt Count 339 325 (140-400) K/mcL BMP 06/18/19 06/19/19 08:43 00:42 Sodium 128 L 129 L Potassium 3.9 3.5 Chloride 97 L 98 Carbon Dioxide 23 23 BUN 11 8 Creatinine 0.79 0.72 Glucose 251 H 178 H Calcium 8.6 8.5 L Consult Discharge Plan - Plan Referrals: NONE,PCP [Primary Care Provider] - (1) Periprosthetic fracture around internal prosthetic hip joint Qualifiers: Encounter type: subsequent encounter Qualified Code(s): M97.01XD - Periprosthetic fracture around internal prosthetic right hip joint, subsequent encounter; T84.040D - Periprosthetic fracture around internal prosthetic right hip joint, subsequent encounter (2) Hypertension Qualifiers: Hypertension type: essential hypertension Qualified Code(s): I10 - Essential (primary) hypertension (3) DM type 2 (diabetes mellitus, type 2) Qualifiers: Diabetes mellitus half-way insulin use: with terminal gauger supervisor use Diabetes mellitus complication status: without complication Qualified Code(s): E11.9 - Type 2 diabetes mellitus without complications; Z79.4 - retirement (current) use of insulin (4) Anemia Qualifiers: Anemia type: unspecified type Qualified Code(s): D64.9 - Anemia, unspecified (5) Leukocytosis Qualifiers: Leukocytosis type: unspecified Qualified Code(s): D72.829 - Elevated white blood cell count, unspecified
[2019-06-19] MEDS ORDERED: Ergocalciferol (VIT D2) 50,000 UNIT (1.25MG) CAP PO SCH (09:00)
[2019-06-19] MEDS: Ciprofloxacin HCL Soln 5 ML BOTTLE BOTH EYES SCH ×6 (09:59→20:22)
[2019-06-19] MEDS ORDERED: Aminoglycoside Consult 1 EACH MC ONE (10:15)
[2019-06-19] MEDS: Ascorbic Acid 500 MG TABLET PO SCH ×2 (11:14→17:40)
[2019-06-19] MEDS: Furosemide 20 MG TABLET PO SCH (11:14)
[2019-06-19] MEDS: clonazePAM 1 MG TABLET PO SCH ×4 (11:14→20:22)
[2019-06-19] MEDS: *HR* OxyCODONE Immed Rel 5 MG TABLET PO PRN ×2 (11:18→20:29)
[2019-06-19] MEDS: Multivit/Ca/Min/Fe/FA 1 TAB TABLET PO SCH (11:26)
[2019-06-19] MEDS: *HR* Rivaroxaban 10 MG TABLET PO SCH (17:40)
--- NOTE | 2019-06-19 19:45 | Orthopedics Progress Note ---
Date of Encounter: 06/18/19 Time of Encounter: 17:45 Subjective Principal diagnosis: right hip periprosthetic fracture Interval history: The patient complains of hip pain through interpreter for the deaf which is 5 on a pain scale. Afebrile vital signs are stable. Drain output greater than 40 mL per shift. Incision is clean dry and intact. Neurovascularly intact with regard to bilateral lower extremities. Assessment :stable. Plan mobilize ,continue analgesics, maintain GRAYSON drain, discharge planning. Objective Vital signs: Vital Signs Temp Pulse Resp BP Pulse Ox 06/19/19 18:28 98.4 F 112 17 136/86 98 06/19/19 16:28 97.7 F 110 19 146/89 99 06/19/19 11:19 98.0 F 113 16 137/82 99 06/19/19 08:45 98.4 F 114 15 148/96 99 06/19/19 05:07 23 96 06/19/19 03:09 99.5 F 113 20 143/89 96 06/19/19 00:19 28 97 06/18/19 23:34 98.8 F 108 18 148/86 97 06/18/19 23:21 100.2 F H 113 20 165/108 97 06/18/19 21:00 97 06/18/19 20:10 98.1 F 112 20 135/86 97 Intake and Output 06/19/19 06/19/19 06/19/19 07:59 15:59 23:59 Intake Total 0 / 1550 1090 / 1550 460 / 1550 Output Total 60 / 90 Balance -30 / 1460 1030 / 1460 460 / 1460 Intake: Oral 0 / 1550 1090 / 1550 460 / 1550 Output: Wound Drainage 60 / 90 GRAYSON Drain Lower Right Hip 60 / 90 Other: Meal Breakfast Dinner Percent of Meal Consumed 50% 80% Stool Size Moderate Stool Consistency loose Stool Color Brown # Voids 1 1 # Urine Diapers 1 2 # Bowel Movement Diapers 1 Weight 109.7 kg Blood Glucose* 146 143 Patient Weight 06/19/19 23:59 Weight 109.7 kg - Labs CBC & BMP: 06/19/19 00:42 06/19/19 00:42 Labs: Abnormal lab results WBC 12.5 K/mcL (4.3-11.1) H 06/19/19 00:42 RBC 2.93 M/mcL (4.19-5.50) L 06/19/19 00:42 Hgb 7.7 g/dL (12.9-16.9) L 06/19/19 00:42 Hct 25.0 % (37.5-50.1) L 06/19/19 00:42 MCH 26.3 pg (28.0-33.3) L 06/19/19 00:42 MCHC 30.8 g/dL (31.6-35.5) L 06/19/19 00:42 Neutrophils # 11.0 K/mcL (1.6-8.9) H 06/15/19 08:36 Sodium 129 mEq/L (136-145) L 06/19/19 00:42 Potassium 3.4 mEq/L (3.5-5.1) L 06/17/19 01:16 Chloride 97 mEq/L (98-107) L 06/18/19 08:43 Carbon Dioxide 22 mEq/L (23-29) L 06/17/19 01:16 Glucose 178 mg/dL (70-105) H 06/19/19 00:42 POC Glucose 218 mg/dL (70-99) H 06/18/19 16:52 Calculated Osmolality 271 (280-300) L 06/19/19 00:42 Calcium 8.5 mg/dL (8.6-10.3) L 06/19/19 00:42 Alkaline Phosphatase 113 Units/L (34-104) H 06/15/19 08:36 Globulin 4.1 g/dL (2.4-3.5) H 06/15/19 08:36 Albumin/Globulin Ratio 0.9 (1.1-2.2) L 06/15/19 08:36 Consult Discharge Plan - Plan Referrals: NONE,PCP [Primary Care Provider] -
--- NOTE | 2019-06-19 20:07 | Orthopedics Progress Note ---
Date of Encounter: 06/19/19 Time of Encounter: 20:06 Subjective Principal diagnosis: right hip periprosthetic fracture Interval history: The patient has improved pain control. Drains removed.. Afebrile vital signs are stable. . Incision is clean dry and intact. Neurovascularly intact with regard to bilateral lower extremities. Assessment :stable. Plan mobilize ,continue analgesics, discharge planning. Objective Vital signs: Vital Signs Temp Pulse Resp BP Pulse Ox 06/19/19 18:28 98.4 F 112 17 136/86 98 06/19/19 16:28 97.7 F 110 19 146/89 99 06/19/19 11:19 98.0 F 113 16 137/82 99 06/19/19 08:45 98.4 F 114 15 148/96 99 06/19/19 05:07 23 96 06/19/19 03:09 99.5 F 113 20 143/89 96 06/19/19 00:19 28 97 06/18/19 23:34 98.8 F 108 18 148/86 97 06/18/19 23:21 100.2 F H 113 20 165/108 97 06/18/19 21:00 97 06/18/19 20:10 98.1 F 112 20 135/86 97 Intake and Output 06/19/19 06/19/19 06/19/19 07:59 15:59 23:59 Intake Total 0 / 1550 1090 / 1550 460 / 1550 Output Total 60 / 90 Balance -30 / 1460 1030 / 1460 460 / 1460 Intake: Oral 0 / 1550 1090 / 1550 460 / 1550 Output: Wound Drainage 60 / 90 GRAYSON Drain Lower Right Hip 60 / 90 Other: Meal Breakfast Dinner Percent of Meal Consumed 50% 80% Stool Size Moderate Stool Consistency loose Stool Color Brown # Voids 1 1 # Urine Diapers 1 2 # Bowel Movement Diapers 1 Weight 109.7 kg Blood Glucose* 146 143 Patient Weight 06/19/19 23:59 Weight 109.7 kg - Labs CBC & BMP: 06/19/19 00:42 06/19/19 00:42 Labs: Abnormal lab results WBC 12.5 K/mcL (4.3-11.1) H 06/19/19 00:42 RBC 2.93 M/mcL (4.19-5.50) L 06/19/19 00:42 Hgb 7.7 g/dL (12.9-16.9) L 06/19/19 00:42 Hct 25.0 % (37.5-50.1) L 06/19/19 00:42 MCH 26.3 pg (28.0-33.3) L 06/19/19 00:42 MCHC 30.8 g/dL (31.6-35.5) L 06/19/19 00:42 Neutrophils # 11.0 K/mcL (1.6-8.9) H 06/15/19 08:36 Sodium 129 mEq/L (136-145) L 06/19/19 00:42 Potassium 3.4 mEq/L (3.5-5.1) L 06/17/19 01:16 Chloride 97 mEq/L (98-107) L 06/18/19 08:43 Carbon Dioxide 22 mEq/L (23-29) L 06/17/19 01:16 Glucose 178 mg/dL (70-105) H 06/19/19 00:42 POC Glucose 189 mg/dL (70-99) H 06/18/19 20:10 Calculated Osmolality 271 (280-300) L 06/19/19 00:42 Calcium 8.5 mg/dL (8.6-10.3) L 06/19/19 00:42 Alkaline Phosphatase 113 Units/L (34-104) H 06/15/19 08:36 Globulin 4.1 g/dL (2.4-3.5) H 06/15/19 08:36 Albumin/Globulin Ratio 0.9 (1.1-2.2) L 06/15/19 08:36 Consult Discharge Plan - Plan Referrals: NONE,PCP [Primary Care Provider] -
[2019-06-19] MEDS: METHAZOLAMIDE PO SCH (20:22)
[2019-06-19] MEDS: Insulin DETEMIR 100 UNIT/ML X5UNITS SQ SCH (20:22)
[2019-06-20] MEDS: traMADol 50 MG TABLET PO PRN
[2019-06-20] MEDS: Ciprofloxacin HCL Soln 5 ML BOTTLE BOTH EYES SCH ×4 (00:01→18:45)
--- NOTE | 2019-06-20 06:45 | Orthopedics Progress Note ---
Date of Encounter: 06/20/19 Time of Encounter: 06:44 - Assessment and Plan (1) Acute blood loss anemia Current Visit: Yes Status: Acute Subjective Principal diagnosis: right hip periprosthetic fracture Interval history: Patient was seen this morning doing well without complaints. Afebrile vital signs stable. Operative extremity: Neurovascularly intact Dressing clean dry and intact Calves nontender Assessment and plan: Continue with postoperative care Stable for discharge Objective Vital signs: Vital Signs Temp Pulse Resp BP Pulse Ox 06/20/19 04:58 98.3 F 68 18 127/83 93 06/19/19 23:35 97.8 F 61 17 112/58 97 06/19/19 20:20 98 06/19/19 18:28 98.4 F 112 17 136/86 98 06/19/19 16:28 97.7 F 110 19 146/89 99 06/19/19 11:19 98.0 F 113 16 137/82 99 06/19/19 08:45 98.4 F 114 15 148/96 99 Intake and Output 06/19/19 06/19/19 06/20/19 15:59 23:59 07:59 Intake Total 1090 / 1550 460 / 1550 Output Total 60 / 90 Balance 1030 / 1460 460 / 1460 Intake: Oral 1090 / 1550 460 / 1550 Output: Wound Drainage 60 / 90 GRAYSON Drain Lower Right Hip 60 / 90 Other: Meal Breakfast Dinner Percent of Meal Consumed 50% 80% # Voids 1 1 # Urine Diapers 2 4 Weight 107 kg Blood Glucose* 146 202 - Labs CBC & BMP: 06/19/19 00:42 06/19/19 00:42 Labs: Abnormal lab results WBC 12.5 K/mcL (4.3-11.1) H 06/19/19 00:42 RBC 2.93 M/mcL (4.19-5.50) L 06/19/19 00:42 Hgb 7.7 g/dL (12.9-16.9) L 06/19/19 00:42 Hct 25.0 % (37.5-50.1) L 06/19/19 00:42 MCH 26.3 pg (28.0-33.3) L 06/19/19 00:42 MCHC 30.8 g/dL (31.6-35.5) L 06/19/19 00:42 Neutrophils # 11.0 K/mcL (1.6-8.9) H 06/15/19 08:36 Sodium 129 mEq/L (136-145) L 06/19/19 00:42 Potassium 3.4 mEq/L (3.5-5.1) L 06/17/19 01:16 Chloride 97 mEq/L (98-107) L 06/18/19 08:43 Carbon Dioxide 22 mEq/L (23-29) L 06/17/19 01:16 Glucose 178 mg/dL (70-105) H 06/19/19 00:42 POC Glucose 189 mg/dL (70-99) H 06/18/19 20:10 Calculated Osmolality 271 (280-300) L 06/19/19 00:42 Calcium 8.5 mg/dL (8.6-10.3) L 06/19/19 00:42 Alkaline Phosphatase 113 Units/L (34-104) H 06/15/19 08:36 Globulin 4.1 g/dL (2.4-3.5) H 06/15/19 08:36 Albumin/Globulin Ratio 0.9 (1.1-2.2) L 06/15/19 08:36 Consult Discharge Plan - Plan Referrals: NONE,PCP [Primary Care Provider] -
[2019-06-20 07:27] LABS: Basophils % 0.3 %; Eosinophils # 0.1 K/mcL (0.0-0.6); Eosinophils % 1.3 %; Hematocrit 24.5 % (37.5-50.1); Hemoglobin 7.6 g/dL (12.9-16.9); Lymphocytes # 1.8 K/mcL (0.6-4.6); Lymphocytes % 16.4 %; Mean Corpuscular Volume 86.9 fL (83.0-100.0); Mean Platelet Volume 9.8 fL (9.4-12.4); Monocytes # 1.2 K/mcL (0.0-1.3); Monocytes % 10.5 %; Neutrophils # 7.8 K/mcL (1.6-8.9); Platelet Count 341 K/mcL (140-400); Red Blood Count 2.82 M/mcL (4.19-5.50); Red Cell Distribution Width 13.5 % (11.5-14.5); Segmented Neutrophils % 69.5 %; White Blood Count 11.2 K/mcL (4.3-11.1)
[2019-06-20 07:44] LABS: BUN/Creatinine Ratio 13 (6-26); Blood Urea Nitrogen 10 mg/dL (6-20); Calcium 8.9 mg/dL (8.6-10.3); Carbon Dioxide 23 mEq/L (23-29); Chloride 99 mEq/L (98-107); Glucose 67 mg/dL (70-105); Magnesium 1.6 mg/dL (1.6-2.6); Osmolality,Calculated 277 (280-300); Phosphorous 4.3 mg/dL (2.7-4.5); Potassium 3.1 mEq/L (3.5-5.1); Sodium 135 mEq/L (136-145); eGFR For African Americans > 60 (> 60); eGFR For Non-African Americans > 60 (> 60)
[2019-06-20] MEDS: Furosemide 20 MG TABLET PO SCH (08:56)
[2019-06-20] MEDS: Ascorbic Acid 500 MG TABLET PO SCH ×2 (08:56→18:46)
[2019-06-20] MEDS: Multivit/Ca/Min/Fe/FA 1 TAB TABLET PO SCH (08:56)
[2019-06-20] MEDS: clonazePAM 1 MG TABLET PO SCH ×3 (08:56→18:46)
[2019-06-20] MEDS: METHAZOLAMIDE PO SCH (08:58)
--- NOTE | 2019-06-20 09:22 | Discharge Summary ---
<Vangie Warner - Last Filed: 06/20/19 14:06> Orders not resulted at time of discharge: Pending orders 06/17/19 18:32 Culture,Anaerobic [RM] Routine 06/17/19 19:51 Surgical Pathology [PTH] Routine 06/21/19 04:00 Basic Metabolic Panel AM 0400 CBC [Complete Blood Count] [HEME] AM 0400 Magnesium AM 0400 Phosphorous AM 0400 06/22/19 04:00 Basic Metabolic Panel AM 0400 CBC [Complete Blood Count] [HEME] AM 0400 Magnesium AM 0400 Phosphorous AM 0400 06/23/19 04:00 Basic Metabolic Panel AM 0400 CBC [Complete Blood Count] [HEME] AM 0400 Magnesium AM 0400 Phosphorous AM 0400 06/24/19 04:00 Basic Metabolic Panel AM 0400 CBC [Complete Blood Count] [HEME] AM 0400 Magnesium AM 0400 Phosphorous AM 0400 06/25/19 04:00 Basic Metabolic Panel AM 0400 CBC [Complete Blood Count] [HEME] AM 0400 Magnesium AM 0400 Phosphorous AM 0400 Date of Encounter: 06/20/19 - Discharge Diagnosis (1) Periprosthetic fracture around internal prosthetic hip joint Status: Acute Qualifiers: Encounter type: subsequent encounter Qualified Code(s): M97.01XD - Periprosthetic fracture around internal prosthetic right hip joint, subsequent encounter; T84.040D - Periprosthetic fracture around internal prosthetic right hip joint, subsequent encounter (2) Hypertension Status: Chronic Qualifiers: Hypertension type: essential hypertension Qualified Code(s): I10 - Essential (primary) hypertension (3) DM type 2 (diabetes mellitus, type 2) Status: Chronic Qualifiers: Diabetes mellitus moth exterminator insulin use: with moth exterminator use Diabetes mellitus complication status: without complication Qualified Code(s): E11.9 - Type 2 diabetes mellitus without complications; Z79.4 - [facility] (current) use of insulin (4) Anemia Status: Acute Qualifiers: Anemia type: unspecified type Qualified Code(s): D64.9 - Anemia, unspecified (5) Leukocytosis Status: Acute Qualifiers: Leukocytosis type: unspecified Qualified Code(s): D72.829 - Elevated white blood cell count, unspecified (6) Bipolar 1 disorder Status: Chronic (7) Hyponatremia Status: Acute (8) DVT prophylaxis Status: Acute Hospital course: Mr. Prince is a 43 year old male - Time Spent with Patient Total time spent providing and/or coordinating discharge services: - Discharge Medications Prescriptions: New Patient Taking Own Medication 0 each PO BID each Continued Quetiapine Fumarate [Seroquel Xr] 300 mg PO BID Pravastatin Sodium [Pravachol] 20 mg PO HS Bimatoprost [Lumigan] 1 drop BOTH EYES QPM Ergocalciferol (VITAMIN D2) [Vitamin D2] 50,000 unit PO SUWE Ketoconazole Shampoo [Nizoral Shampoo] 1 appl TP Q48H Non-Formulary Medication 100 mg PO BID Vit #108/Iron/FA [ One Tablet] 1 tab PO DAILY clonazePAM [Clonazepam] 1 mg PO QID PRN PRN Reason: anxiety/aggitation Diltiazem HCl [Cardizem LA] 180 mg PO DAILY Guaifenesin [Mucinex] 600 mg PO BID PRN PRN Reason: Congestion Oxycodone HCl/Acetaminophen [Percocet 10-325 mg Tablet] 1 tab PO QID PRN PRN Reason: Pain Ziprasidone HCl [Geodon] 80 mg PO BID Insulin ASPART [NovoLOG] 0 units SQ QID Liraglutide [Victoza 3-Teja] 1.8 mg SQ DAILY clonazePAM [Clonazepam] 2 mg PO QID Omeprazole [PriLOSEC] 20 mg PO BID Losartan Potassium [Cozaar] 50 mg PO DAILY Allopurinol [Zyloprim 100 MG] 100 mg PO BID Escitalopram [Lexapro] 20 mg PO HS Albuterol Sulfate [Ventolin Hfa] 2 puff IH Q4H PRN PRN Reason: Shortness Of Breath Insulin Glargine,Hum.rec.anlog [Basaglar Kwikpen U-100] 60 unit SQ BID Magnesium Oxide [Mag-Ox] 400 mg PO DAILY #7 tablet Potassium Chloride 20 meq PO BID #60 tab.er.prt Furosemide [Lasix] 20 mg PO DAILY tablet Rivaroxaban [Xarelto] 10 mg PO 1700 #21 tablet Discontinued Docusate [Colace] 100 mg PO BID Home Medications: Albuterol Sulfate [Ventolin Hfa] 2 puff IH Q4H PRN 04/21/19 [History] Allopurinol [Zyloprim 100 MG] 100 mg PO BID 04/21/19 [History] Escitalopram [Lexapro] 20 mg PO HS 04/21/19 [History] Guaifenesin [Mucinex] 600 mg PO BID PRN 04/21/19 [History] Insulin ASPART [NovoLOG] 0 units SQ QID 04/21/19 [History] Insulin Glargine,Hum.rec.anlog [Basaglar Kwikpen U-100] 60 unit SQ BID 04/21/19 [History] Liraglutide [Victoza 3-Teja] 1.8 mg SQ DAILY 04/21/19 [History] Losartan Potassium [Cozaar] 50 mg PO DAILY 04/21/19 [History] Omeprazole [PriLOSEC] 20 mg PO BID 04/21/19 [History] Oxycodone HCl/Acetaminophen [Percocet 10-325 mg Tablet] 1 tab PO QID PRN 04/21/19 [History] Ziprasidone HCl [Geodon] 80 mg PO BID 04/21/19 [History] clonazePAM [Clonazepam] 2 mg PO QID 04/21/19 [History] Pravastatin Sodium [Pravachol] 20 mg PO HS 06/04/19 [History] Quetiapine Fumarate [Seroquel Xr] 300 mg PO BID 06/04/19 [History] Bimatoprost [Lumigan] 1 drop BOTH EYES QPM 06/05/19 [History] Ergocalciferol (VITAMIN D2) [Vitamin D2] 50,000 unit PO SUWE 06/05/19 [History] Ketoconazole Shampoo [Nizoral Shampoo] 1 appl TP Q48H 06/05/19 [History] Non-Formulary Medication 100 mg PO BID 06/05/19 [History] Vit #108/Iron/FA [ One Tablet] 1 tab PO DAILY 06/05/19 [History] clonazePAM [Clonazepam] 1 mg PO QID PRN 06/05/19 [History] Furosemide [Lasix] 20 mg PO DAILY tablet 06/13/19 [Rx] Magnesium Oxide [Mag-Ox] 400 mg PO DAILY #7 tablet 06/13/19 [Rx] Potassium Chloride 20 meq PO BID #60 tab.er.prt 06/13/19 [Rx] Rivaroxaban [Xarelto] 10 mg PO 1700 #21 tablet 06/13/19 [Rx] Diltiazem HCl [Cardizem LA] 180 mg PO DAILY 06/15/19 [History] Patient Taking Own Medication 0 each PO BID each 06/20/19 [Rx] Allergies/Adverse Reactions: Allergy/AdvReac Type Severity Reaction Status Date / Time fentanyl AdvReac See Verified 06/05/19 17:34 Comments IV CONTRAST DYE Allergy See Uncoded 06/05/19 17:34 Comments Date of admission: 06/15/19 10:14 Primary care physician: PCP NONE Consults: 06/15/19 09:14 Consult to Orthopedic Surgery [CONS] Stat Consulting Provider: [facility] Reason for Consult: prostatic fracture, worse than yesterday Call Completed: Yes 06/15/19 12:11 Consult to [employer] [CONS] Routine Reason for SW Consult: D/c planning. Femur fracture, multiple falls. 06/17/19 20:55 Consult to Nurse Navigator [CONS] Routine Comment: ortho navigator Consult to Nutrition [CONS] Routine Comment: Consulting Provider: NUTRITION Reason for Dietary Consult: Other Other:: Proper nutrition to facilitate wound healing Consult to Occupational Therapy [CONS] Routine Comment: Evaluate, develop and implement POC Reason for Consult: total hip replacement Does patient have active BEDREST order?: No Is patient medically & hemodynamically stable?: Yes Consult to Physical Therapy [CONS] Routine Comment: Evaluate, develop and implement POC Reason for Consult: total hip replacement Does patient have active BEDREST order?: No Is patient medically & hemodynamically stable?: Yes Consult to [employer] [CONS] Routine Reason for SW Consult: post op joint replacement RT Post Op Consult [CONS] Routine - Constitutional Vitals: Temp Pulse Resp BP Pulse Ox 98.0 F 98 17 128/87 97 06/20/19 10:04 06/20/19 10:04 06/20/19 10:04 06/20/19 10:04 06/20/19 10:04 - Patient Status Disposition: Transfer SNF - Discharge Instructions Follow Up With: NONE,PCP [Primary Care Provider] - - Attending Attestation I have seen and independently assessed this patient and I agree with plan as documented Exam Gen. NAD CVS. S1 S2 Resp. CTAB GI. Soft, NT, ND, +BS EXt. dressing in place. Clean [address] PATROL PILOT. GCS 15/15 Plan Right hip prosthesis fracture. s/p right hip revision hemiarthroplasty on 06/17. Tolerated procedure well. Stable for discharge to rehab <Timoteo Myers Patricia - Last Filed: 06/20/19 19:23> - NOTES TO OUTPATIENT PROVIDER Notes to Outpatient Provider: Pt had a right revision of femoral hip component w ith metal replacement. Will need PT to increase strength. Other medical conditions have been stable since admission. Orders not resulted at time of discharge: Pending orders 06/17/19 18:32 Culture,Anaerobic [RM] Routine 06/17/19 19:51 Surgical Pathology [PTH] Routine 06/21/19 04:00 Basic Metabolic Panel AM 0400 CBC [Complete Blood Count] [HEME] AM 0400 Magnesium AM 0400 Phosphorous AM 0400 06/22/19 04:00 Basic Metabolic Panel AM 0400 CBC [Complete Blood Count] [HEME] AM 0400 Magnesium AM 0400 Phosphorous AM 0400 06/23/19 04:00 Basic Metabolic Panel AM 0400 CBC [Complete Blood Count] [HEME] AM 0400 Magnesium AM 0400 Phosphorous AM 0400 06/24/19 04:00 Basic Metabolic Panel AM 0400 CBC [Complete Blood Count] [HEME] AM 0400 Magnesium AM 0400 Phosphorous AM 0400 06/25/19 04:00 Basic Metabolic Panel AM 0400 CBC [Complete Blood Count] [HEME] AM 0400 Magnesium AM 0400 Phosphorous AM 0400 Date of Encounter: 06/20/19 Time of Encounter: 09:22 - Discharge Diagnosis (1) Fracture of right hip Priority: Primary Status: Acute Qualifiers: Encounter type: initial encounter Fracture type: closed Qualified Code(s): S72.001A - Fracture of unspecified part of neck of right femur, initial encounter for closed fracture (2) Uncontrolled diabetes mellitus Priority: Secondary Status: Acute Qualifiers: Qualified Code(s): E11.65 - Type 2 diabetes mellitus with hyperglycemia (3) Hypertension Priority: Secondary Status: Chronic Qualifiers: Hypertension type: essential hypertension Qualified Code(s): I10 - Essential (primary) hypertension (4) Hyperlipidemia Priority: Secondary Status: Chronic Qualifiers: Hyperlipidemia type: unspecified Qualified Code(s): E78.5 - Hyperlipidemia, unspecified (5) Bipolar 1 disorder Priority: Secondary Status: Chronic (6) Seizure disorder Priority: Secondary Status: Chronic Hospital course: Mr. Prince is a 43 year old male with a past medical history significant for hearing impairment, CHF, COPD, diabetes, GERD, hypertension, seizure disorder, and bipolar disorder. Patient presented with chief complaint of right hip pain. Patient had hip arthroplasty on 06/05 and was discharged on 06/13 when he had a near fall which resulted in the patient coming to the ED with x-rays finding a periprosthetic fracture. Patient signed out AMA at that time. Patient returned on 06/14 due to pain as patient had been walking on his leg following leaving hospital. Patient had repeat x-ray at this time which showed fracture was stable, but patient decided to sign himself out AMA again. Patient then proceeded to fall at home 06/15 which he was admitted to the hospital for on this visit. Patient had a repeat x-ray at this time which showed worsening of the fracture and agreed to stay for repair. Patient was evaluated by ortho and had a repair of the right hip on 06/17. Patient is in stable since this time and will be discharged for rehabilitation of the right hip. Pt refusing to go to rehab at this time will be transported home. Explained pt will require help to do ADL and needs PT at this time. Pt still refusing placement Discharge discussed with: patient - Time Spent with Patient Total time spent providing and/or coordinating discharge services: Time spent: Greater than 30 minutes Date of admission: 06/15/19 10:14 Primary care physician: PCP NONE Consults: 06/15/19 09:14 Consult to Orthopedic Surgery [CONS] Stat Consulting Provider: [facility] Reason for Consult: prostatic fracture, worse than yesterday Call Completed: Yes 06/15/19 12:11 Consult to [employer] [CONS] Routine Reason for SW Consult: D/c planning. Femur fracture, multiple falls. 06/17/19 20:55 Consult to Nurse Navigator [CONS] Routine Comment: ortho navigator Consult to Nutrition [CONS] Routine Comment: Consulting Provider: NUTRITION Reason for Dietary Consult: Other Other:: Proper nutrition to facilitate wound healing Consult to Occupational Therapy [CONS] Routine Comment: Evaluate, develop and implement POC Reason for Consult: total hip replacement Does patient have active BEDREST order?: No Is patient medically & hemodynamically stable?: Yes Consult to Physical Therapy [CONS] Routine Comment: Evaluate, develop and implement POC Reason for Consult: total hip replacement Does patient have active BEDREST order?: No Is patient medically & hemodynamically stable?: Yes Consult to [employer] [CONS] Routine Reason for SW Consult: post op joint replacement RT Post Op Consult [CONS] Routine - Constitutional Vitals: Temp Pulse Resp BP Pulse Ox 97.7 F 107 17 134/94 98 06/20/19 06:57 06/20/19 06:57 06/20/19 06:57 06/20/19 06:57 06/20/19 06:57 General appearance: Present: A&O X 3, pleasant, no acute distress Exam: GEN: NAD Head exam:atraumatic, normocephalic Eye exam: PERRL, conjuntiva pink, sclera anicteric Neck exam: supple, trachea midline. Respiratory exam: CTAB. No accessory muscle use, rales, rhonchi, wheezes Cardiovascular exam: RRR, +S1, +S2. GI/Abdominal exam:normal bowel sounds, soft, no peritoneal signs. Extremities exam:right hip dressing in place. Brace placed over the RLE Neurological exam: oriented X3, no focal deficits. - Patient Status Functional capacity at discharge: uses cane/walker Overall status at discharge: patient is progressing back to baseline - Diet and Activity Activity: as per physical therapy Diet: diabetic diet
[2019-06-20] MEDS: Ketoconazole Shampoo 120 ML BOTTLE TP SCH (13:34)
[2019-06-20] MEDS: Potassium Chloride Elixir 20 MEQ/15 ML UDC PO SCH ×2 (13:34→13:37)
--- NOTE | 2019-06-20 13:46 | Physician Discharge Referral ---
ExtendedCare Referral Info Transfer To: SNF Provider in Charge after Transfer: PCP Institutional Level of Care: Skilled - Diagnosis (1) Fracture of right hip Priority: Primary Status: Acute (2) Uncontrolled diabetes mellitus Priority: Secondary Status: Acute (3) Hypertension Priority: Secondary Status: Chronic (4) Hyperlipidemia Priority: Secondary Status: Chronic (5) Bipolar 1 disorder Priority: Secondary Status: Chronic (6) Seizure disorder Priority: Secondary Status: Chronic - Transfer Medications Home Medications: Albuterol Sulfate [Ventolin Hfa] 2 puff IH Q4H PRN 04/21/19 [History] Allopurinol [Zyloprim 100 MG] 100 mg PO BID 04/21/19 [History] Escitalopram [Lexapro] 20 mg PO HS 04/21/19 [History] Guaifenesin [Mucinex] 600 mg PO BID PRN 04/21/19 [History] Insulin ASPART [NovoLOG] 0 units SQ QID 04/21/19 [History] Insulin Glargine,Hum.rec.anlog [Basaglar Kwikpen U-100] 60 unit SQ BID 04/21/19 [History] Liraglutide [Victoza 3-Teja] 1.8 mg SQ DAILY 04/21/19 [History] Losartan Potassium [Cozaar] 50 mg PO DAILY 04/21/19 [History] Omeprazole [PriLOSEC] 20 mg PO BID 04/21/19 [History] Oxycodone HCl/Acetaminophen [Percocet 10-325 mg Tablet] 1 tab PO QID PRN 04/21/19 [History] Ziprasidone HCl [Geodon] 80 mg PO BID 04/21/19 [History] clonazePAM [Clonazepam] 2 mg PO QID 04/21/19 [History] Pravastatin Sodium [Pravachol] 20 mg PO HS 06/04/19 [History] Quetiapine Fumarate [Seroquel Xr] 300 mg PO BID 06/04/19 [History] Bimatoprost [Lumigan] 1 drop BOTH EYES QPM 06/05/19 [History] Ergocalciferol (VITAMIN D2) [Vitamin D2] 50,000 unit PO SUWE 06/05/19 [History] Ketoconazole Shampoo [Nizoral Shampoo] 1 appl TP Q48H 06/05/19 [History] Non-Formulary Medication 100 mg PO BID 06/05/19 [History] Vit #108/Iron/FA [ One Tablet] 1 tab PO DAILY 06/05/19 [History] clonazePAM [Clonazepam] 1 mg PO QID PRN 06/05/19 [History] Furosemide [Lasix] 20 mg PO DAILY tablet 06/13/19 [Rx] Magnesium Oxide [Mag-Ox] 400 mg PO DAILY #7 tablet 06/13/19 [Rx] Potassium Chloride 20 meq PO BID #60 tab.er.prt 06/13/19 [Rx] Rivaroxaban [Xarelto] 10 mg PO 1700 #21 tablet 06/13/19 [Rx] Diltiazem HCl [Cardizem LA] 180 mg PO DAILY 06/15/19 [History] Patient Taking Own Medication 0 each PO BID each 06/20/19 [Rx] Allergies/Adverse Reactions: Allergy/AdvReac Type Severity Reaction Status Date / Time fentanyl AdvReac See Verified 06/05/19 17:34 Comments IV CONTRAST DYE Allergy See Uncoded 06/05/19 17:34 Comments - Respiratory Orders None Smoking Cessation: Smoking cessation has been advised. For more information, call the [place] Tobacco Quit Line at 8-208-ZIDD-NOW. - Advance Directives Code Status: Full Code - Rehabiliation Orders Rehab Potential: Good Rehab Orders: Evaluation for Physical Therapy, Evaluation for Occupational Therapy - Diet Orders Cardiac (Diabetic Diet) CERTIFICATION: I certify that the transfer of the above named patient to an Extended Care Facility is necessary for the continuing treatment of the diagnosis listed. The above information is true and accurate reflection of patient's current condition. Confidential - Redisclosure prohibited without a patient's written consent.
--- NOTE | 2019-06-20 14:54 | Physician Discharge Referral ---
Home Health/Hosp Referral Info Transfer to: Home Health Provider in Charge Post Discharge: PCP - Diagnosis (1) Fracture of right hip Priority: Primary Status: Acute (2) Uncontrolled diabetes mellitus Priority: Secondary Status: Acute (3) Hypertension Priority: Secondary Status: Chronic (4) Hyperlipidemia Priority: Secondary Status: Chronic (5) Bipolar 1 disorder Priority: Secondary Status: Chronic (6) Seizure disorder Priority: Secondary Status: Chronic - Respiratory Orders None Smoking Cessation: Smoking cessation has been advised. For more information, call the [place] [employer] Quit Line at 3-165-SGWJ-NOW. - Dressing/Wound Care Site: Right Hip incision - Diet/Nutrition Diet/Nutrition Orders: Cardiac Diet/Nutrition: List: Diabetic diet - Services Needed Following services are medically necessary services: Physical Therapy, Occupational Therapy - Transfer Medications Home Medications: Albuterol Sulfate [Ventolin Hfa] 2 puff IH Q4H PRN 04/21/19 [History] Allopurinol [Zyloprim 100 MG] 100 mg PO BID 04/21/19 [History] Escitalopram [Lexapro] 20 mg PO HS 04/21/19 [History] Guaifenesin [Mucinex] 600 mg PO BID PRN 04/21/19 [History] Insulin ASPART [NovoLOG] 0 units SQ QID 04/21/19 [History] Insulin Glargine,Hum.rec.anlog [Basaglar Kwikpen U-100] 60 unit SQ BID 04/21/19 [History] Liraglutide [Victoza 3-Teja] 1.8 mg SQ DAILY 04/21/19 [History] Losartan Potassium [Cozaar] 50 mg PO DAILY 04/21/19 [History] Omeprazole [PriLOSEC] 20 mg PO BID 04/21/19 [History] Oxycodone HCl/Acetaminophen [Percocet 10-325 mg Tablet] 1 tab PO QID PRN 04/21/19 [History] Ziprasidone HCl [Geodon] 80 mg PO BID 04/21/19 [History] clonazePAM [Clonazepam] 2 mg PO QID 04/21/19 [History] Pravastatin Sodium [Pravachol] 20 mg PO HS 06/04/19 [History] Quetiapine Fumarate [Seroquel Xr] 300 mg PO BID 06/04/19 [History] Bimatoprost [Lumigan] 1 drop BOTH EYES QPM 06/05/19 [History] Ergocalciferol (VITAMIN D2) [Vitamin D2] 50,000 unit PO SUWE 06/05/19 [History] Ketoconazole Shampoo [Nizoral Shampoo] 1 appl TP Q48H 06/05/19 [History] Non-Formulary Medication 100 mg PO BID 06/05/19 [History] Vit #108/Iron/FA [ One Tablet] 1 tab PO DAILY 06/05/19 [History] clonazePAM [Clonazepam] 1 mg PO QID PRN 06/05/19 [History] Furosemide [Lasix] 20 mg PO DAILY tablet 06/13/19 [Rx] Magnesium Oxide [Mag-Ox] 400 mg PO DAILY #7 tablet 06/13/19 [Rx] Potassium Chloride 20 meq PO BID #60 tab.er.prt 06/13/19 [Rx] Rivaroxaban [Xarelto] 10 mg PO 1700 #21 tablet 06/13/19 [Rx] Diltiazem HCl [Cardizem LA] 180 mg PO DAILY 06/15/19 [History] Patient Taking Own Medication 0 each PO BID each 06/20/19 [Rx] Allergies/Adverse Reactions: Allergy/AdvReac Type Severity Reaction Status Date / Time fentanyl AdvReac See Verified 06/05/19 17:34 Comments IV CONTRAST DYE Allergy See Uncoded 06/05/19 17:34 Comments Certification: Further, I certify that my clinical findings support that this patient is homebound (i.e. absences from home require considerable and taxing effort and are for medical reasons or [employer] services or infrequently or short duration when for other reasons) because: Homebound Reason: Patient requires assistance of a person or device to safely leave home Attestation: My signature below is to certify that this patient is under my care and that I, or nurse practitioner, or a physician's surveyor instrument assistant working with me, has a [id number] encounter with this patient.
[2019-06-20 18:41] VITALS: BP 138/83
[2019-06-20] MEDS: *HR* Rivaroxaban 10 MG TABLET PO SCH (18:46)
== END 2019-06-20 20:48 | disposition home health service (06) | DRG 466 ==
LOC: CDU 07:31 → EMEROOARM 07:31 → OBSVTOIN 10:14 → CDU 10:45 → 3NENU 19:43 → UNDODISOB 06-20 20:48
PROVIDERS: ADMIT Student in an Organized Health Care Education/Training Program; ATTEND Student in an Organized Health Care Education/Training Program

== ENCOUNTER 2019-07-01 15:01 | Inpatient (IN) ==
[2019-07-01] MEDS ORDERED: *HR* OxyCODONE Immed Rel 5 MG TABLET PO PRN (17:29)
[2019-07-01] MEDS ORDERED: Acetaminophen 325 MG TABLET PO PRN (17:29)
[2019-07-01] MEDS ORDERED: Naloxone 0.4 MG/ML INJ IVP PRN (17:29)
--- NOTE | 2019-07-01 17:45 | Internal Med History&Physical ---
Date of Encounter: 07/01/19 Time of Encounter: 17:00 Internal Medicine - H&P: HPI Chief complaint: Right hip abscess Admitted From: Intrahospital Transfer Plans for Post Hospital Care: Transfer [facility] History of present illness: Mr. Prince is a 43 year old male with above medical history significant for diabetes mellitus, presented from the [facility] swing bed for drainage of right hip abscess. Patient had right hip arthroplasty, followed by a fall, with resultant periprostatic fracture of the femur, then he underwent right revision femoral hip component surgery on 06/17/2019, and then he was discharged to swing [facility] for PT/OT. He initially made good progress but after a few days reported worsening pain in the right hip. His performance in therapy declined secondary to the pain. There was noted to be green drainage from the superior portion of the right hip surgical incision. Wound culture returned showing Pseudomonas and Klebsiella MDRO. He was started on oral Levaquin June 27 with Septra DSS added June 29 when final c/s report was available. Right hip CT scan was ordered on July 01 which showed findings concerning for abscess with intra-articular extension with resultant septic arthritis. Patient was then sent to [facility] for IR to perform aspiration. Patient is currently hemodynamically stable. Endorses pain in the right lower extremity but otherwise denies pain at any other site. Denies fever, chills, rigors. Denies chest pain, shortness of breath, cough, sputum production, diarrhea, nausea, vomiting, dysuria. Patient is deaf and spanish interpreter was used for the patient interview. Patient was told that he will need drainage of the right hip abscess. Past Med Surg Social Fam HX - Past Medical History Medical history: non-contributory, CHF, COPD, diabetes, GERD, glaucoma, hypertension, renal disease, seizures Additional medical history: CARDIOMEGALY Psychiatric history: bipolar, depression, other - Past Surgical History Surgical History: hip replacement Additional surgical history: Glaucoma surgery right eye, hip. LEFT ELBOW - Social History Smoking Status: Never smoker Smokeless Tobacco Status: No Alcohol use: none, rarely Drug use: none - Family History Mother Adopted: No Family Member Ethnicity: Non- Living Status: Hx Family Cardiac Disorders: No Hx Family Respiratory Disorders: No Hx Family Cancer: Yes (breast ca and lung ca mets to brain.) Hx Family GI Disorders: No Hx Family Endocrine Disorder: No Hx Family Neuromuscular Disorders: No Hx Family Neurologic Disorders: No Hx Family HEENT Disorders: No Hx Family Autoimmune Disorders: No Father Adopted: No Living Status: Hx Family Cardiac Disorders: No Hx Family Respiratory Disorders: No Hx Family Cancer: No Hx Family GI Disorders: No Hx Family Endocrine Disorder: Yes (DM) Hx Family Neuromuscular Disorders: No Hx Family Neurologic Disorders: No Hx Family HEENT Disorders: No Hx Family Autoimmune Disorders: No Brother Adopted: No Family Member Ethnicity: Non- Living Status: Hx Family Cardiac Disorders: Yes ( at 27 to cardiac event) Hx Family Respiratory Disorders: No Hx Family Cancer: No Hx Family GI Disorders: No Hx Family Endocrine Disorder: No Hx Family Neuromuscular Disorders: No Hx Family Neurologic Disorders: No Hx Family HEENT Disorders: No Hx Family Autoimmune Disorders: No Internal Medicine - H&P: Meds Albuterol Sulfate [Ventolin Hfa] 2 puff IH Q4H PRN 04/21/19 [History] Allopurinol [Zyloprim 100 MG] 100 mg PO BID 04/21/19 [History] Escitalopram [Lexapro] 20 mg PO HS 04/21/19 [History] Guaifenesin [Mucinex] 600 mg PO BID PRN 04/21/19 [History] Insulin ASPART [NovoLOG] 0 units SQ QID 04/21/19 [History] Insulin Glargine,Hum.rec.anlog [Basaglar Kwikpen U-100] 60 unit SQ BID 04/21/19 [History] Liraglutide [Victoza 3-Teja] 1.8 mg SQ DAILY 04/21/19 [History] Losartan Potassium [Cozaar] 50 mg PO DAILY 04/21/19 [History] Omeprazole [PriLOSEC] 20 mg PO BID 04/21/19 [History] Oxycodone HCl/Acetaminophen [Percocet 10-325 mg Tablet] 1 tab PO QID PRN 04/21/19 [History] Ziprasidone HCl [Geodon] 80 mg PO BID 04/21/19 [History] clonazePAM [Clonazepam] 2 mg PO QID 04/21/19 [History] Pravastatin Sodium [Pravachol] 20 mg PO HS 06/04/19 [History] Quetiapine Fumarate [Seroquel Xr] 300 mg PO BID 06/04/19 [History] Bimatoprost [Lumigan] 1 drop BOTH EYES QPM 06/05/19 [History] Ergocalciferol (VITAMIN D2) [Vitamin D2] 50,000 unit PO SUWE 06/05/19 [History] Ketoconazole Shampoo [Nizoral Shampoo] 1 appl TP Q48H 06/05/19 [History] Non-Formulary Medication 100 mg PO BID 06/05/19 [History] Vit #108/Iron/FA [ One Tablet] 1 tab PO DAILY 06/05/19 [History] clonazePAM [Clonazepam] 1 mg PO QID PRN 06/05/19 [History] Furosemide [Lasix] 20 mg PO DAILY tablet 06/13/19 [Rx] Magnesium Oxide [Mag-Ox] 400 mg PO DAILY #7 tablet 06/13/19 [Rx] Potassium Chloride 20 meq PO BID #60 tab.er.prt 06/13/19 [Rx] Rivaroxaban [Xarelto] 10 mg PO 1700 #21 tablet 06/13/19 [Rx] Diltiazem HCl [Cardizem LA] 180 mg PO DAILY 06/15/19 [History] Patient Taking Own Medication 0 each PO BID each 06/20/19 [Rx] Allergy/AdvReac Type Severity Reaction Status Date / Time fentanyl AdvReac See Verified 06/05/19 17:34 Comments IV CONTRAST DYE Allergy See Uncoded 06/05/19 17:34 Comments All Systems PM: A 10-system review of systems was performed and is negative for pertinent findings except as documented above in the HPI. - Constitutional Exam: General: Alert and oriented, no physical distress, able to follow commands. HEENT: No thyromegaly, no lymphadenopathy, no discharge. Eyes: No discharge. Respiratory: Normal vesicular breathing, no added sounds, breathing equal in both sides. CVS: Normal heart sounds, no murmurs, no edema. Extremities: No peripheral edema, peripheral pulses intact. Musculoskeletal: Rigth hip site examined, dressed whcih was removed, incision identified, mild drainage, foul smelling, no surroundign erythema, tenderness. Lymph nodes: No lymphadenopathy Gastrointestinal: Soft, nontender abdomen, normal abdominal sounds. No distention noted. Genitourinary: No paravertebral tenderness. Neurological: Alert and oriented. No focal deficits. Cranial nerves II-XII intact. - Assessment and Plan (1) Abscess of right hip Current Visit: Yes Status: Acute Assessment and plan: -CT scan Focal fluid collection with internal gas along the lateral aspect of the proximal femur which appears to extend intra-articular with a right hip joint effusion and some foci of intra-articular gas. Findings are highly concerning for abscess with intra-articular extension and resultant septic arthritis. Overlying and surrounding cellulitis. Collection measures grossly 10.0 x 5.9 x 6.0 cm. -Orthopedic on board -Discussed with Dr. Barros, in contact with the IR to do aspiration of the abscess today -Will srart the pt on broad spectrum antibiotics. Vancomycin and zosyn. -WBC noted to be high on yesteday labs -CRP and ESR Wound care -BLood cultures ordered -Wound cultures to be sent after drainage (2) DVT prophylaxis Current Visit: No Status: Acute (3) Leukocytosis Current Visit: No Status: Acute Assessment and plan: -WBC noted to be high fro yesterday labs -Likely due to infection Qualifiers: Leukocytosis type: unspecified Qualified Code(s): D72.829 - Elevated white blood cell count, unspecified (4) DM type 2 (diabetes mellitus, type 2) Current Visit: No Status: Chronic Assessment and plan: -Will start the pt on insulin therapy -Consistent carb diet, -Insulin therpay. Qualifiers: Diabetes mellitus long term acute care registered nurse insulin use: with senior care use Diabetes mellitus complication status: without complication Qualified Code(s): E11.9 - Type 2 diabetes mellitus without complications; Z79.4 - terminal superintendent (current) use of insulin (5) Septic arthritis Current Visit: Yes Status: Acute Assessment and plan: -CT scan concerning for septic arthritis, managment plan as mentioned above Qualifiers: Septic arthritis location: hip Septic arthritis organism: due to unspecified organism Laterality: right Qualified Code(s): M00.9 - Pyogenic arthritis, unspecified (6) Bipolar 1 disorder Current Visit: No Status: Chronic Assessment and plan: -COntinue the current meds (7) GERD (gastroesophageal reflux disease) Current Visit: No Status: Acute Assessment and plan: Continue home meds Qualifiers: Esophagitis presence: without esophagitis Qualified Code(s): K21.9 - Gastro-esophageal reflux disease without esophagitis (8) Hyperlipidemia Current Visit: No Status: Chronic Assessment and plan: -Continue statin Qualifiers: Hyperlipidemia type: unspecified Qualified Code(s): E78.5 - Hyperlipidemia, unspecified (9) Hypertension Current Visit: No Status: Chronic Assessment and plan: -COntinue home meds Qualifiers: Hypertension type: essential hypertension Qualified Code(s): I10 - Essential (primary) hypertension - Summary of Assessment and Plan Summary of Assessment and Plan: -Pt is full code -Keep NPO for now until he gets the aspiration, then start on consistent carb diet -Will be restarted on all meds once reconciled - Time Spent With Patient Total time spent is greater than 50% in coordination of care (as documented) at patient's floor/unit and/or counseling patient:
[2019-07-01] MEDS ORDERED: Dextrose Gel 15 GM/37.5 ML TUBE PO PRN ×2 (18:02)
[2019-07-01] MEDS ORDERED: *HR* Dextrose 50 % in Water (Syg) 50 ML SYRINGE IVP PRN (18:02)
[2019-07-01] MEDS ORDERED: D5% in Water 1,000 ML IVC PRN (18:02)
[2019-07-01 19:42] LABS: Basophils % 0.3 %; Eosinophils # 0.2 K/mcL (0.0-0.6); Eosinophils % 1.9 %; Hematocrit 23.4 % (37.5-50.1); Immature Granulocytes % 3.1 % (0-4); Lymphocytes % 18.8 %; Mean Corpuscular HGB Conc 29.9 g/dL (31.6-35.5); Mean Corpuscular Hemoglobin 26.4 pg (28.0-33.3); Mean Corpuscular Volume 88.3 fL (83.0-100.0); Mean Platelet Volume 9.3 fL (9.4-12.4); Monocytes # 0.7 K/mcL (0.0-1.3); Monocytes % 6.6 %; Neutrophils # 7.3 K/mcL (1.6-8.9); Platelet Count 414 K/mcL (140-400); Red Blood Count 2.65 M/mcL (4.19-5.50); Red Cell Distribution Width 13.6 % (11.5-14.5); Segmented Neutrophils % 69.3 %; White Blood Count 10.6 K/mcL (4.3-11.1)
[2019-07-01 19:57] LABS: BUN/Creatinine Ratio 16 (6-26); Blood Urea Nitrogen 16 mg/dL (6-20); Carbon Dioxide 22 mEq/L (23-29); Chloride 103 mEq/L (98-107); Glucose 224 mg/dL (70-105); Osmolality,Calculated 276 (280-300); Sodium 129 mEq/L (136-145); eGFR For African Americans > 60 (> 60); eGFR For Non-African Americans > 60 (> 60)
[2019-07-01] MEDS: *HR* Heparin 5,000 UNIT/ML VIAL SQ SCH (20:06)
[2019-07-01 20:54] LABS: Mean Platelet Volume 9.3 fL (9.4-12.4)
[2019-07-01 20:55] LABS: Basophils % 0.2 %; Eosinophils % 1.9 %; Hematocrit 19.7 % (37.5-50.1); Lymphocytes # 2.2 K/mcL (0.6-4.6); Mean Corpuscular HGB Conc 29.9 g/dL (31.6-35.5); Mean Corpuscular Hemoglobin 26.9 pg (28.0-33.3); Monocytes # 0.9 K/mcL (0.0-1.3); Monocytes % 6.6 %; Neutrophils # 9.1 K/mcL (1.6-8.9); Platelet Count 436 K/mcL (140-400); Red Blood Count 2.19 M/mcL (4.19-5.50); Red Cell Distribution Width 13.7 % (11.5-14.5); Segmented Neutrophils % 70.3 %; White Blood Count 12.9 K/mcL (4.3-11.1)
[2019-07-01] MEDS: clonazePAM 1 MG TABLET PO SCH (20:57)
[2019-07-01] MEDS: Ziprasidone 80 MG CAPSULE PO SCH (20:57)
[2019-07-01] MEDS: Insulin DETEMIR 100 UNIT/ML X5UNITS SQ SCH (20:57)
[2019-07-01 21:00] LABS: Eosinophils # 0.3 K/mcL (0.0-0.6)
[2019-07-01 21:02] LABS: Hemoglobin 5.9 g/dL (12.9-16.9)
[2019-07-01 21:19] LABS: Anisocytosis 1+ (Not Present); Microcytosis Present (Not Present)
[2019-07-01] MEDS ORDERED: 0.9 % Sodium Chloride 500 ML ONE (23:20)
[2019-07-02] MEDS ORDERED: 0.9 % Sodium Chloride 250 ML ONE ×2 (03:35→10:28)
[2019-07-02] MEDS: Ringers Solution, Lactated 1,000 ML IVC SCH ×2 (04:14→18:39)
[2019-07-02] MEDS: *HR* Heparin 5,000 UNIT/ML VIAL SQ SCH ×2 (04:18→18:39)
--- NOTE | 2019-07-02 07:21 | Event Note ---
Date of Encounter: 07/01/19 Time of Encounter: 21:07 Alerted by pts. nurse that the pts. Hgb was now 5.9. Patient lost IV access. Stat type and screen ordered. EPIV order placed and ICU called to place. 3 units PRBCs ordered for transfusion. Nurse reported the pt. was stable and resting. Nurse informed of these orders and instructed to continue monitoring the pt. very closely and alert me immediately of any adverse changes.
[2019-07-02 08:43] LABS: BUN/Creatinine Ratio 19 (6-26); Blood Urea Nitrogen 18 mg/dL (6-20); Calcium 9.1 mg/dL (8.6-10.3); Carbon Dioxide 21 mEq/L (23-29); Chloride 105 mEq/L (98-107); Glucose 138 mg/dL (70-105); Magnesium 1.7 mg/dL (1.6-2.6); Osmolality,Calculated 284 (280-300); Potassium 4.1 mEq/L (3.5-5.1); Sodium 135 mEq/L (136-145); eGFR For African Americans > 60 (> 60); eGFR For Non-African Americans > 60 (> 60)
--- NOTE | 2019-07-02 09:37 | IR Procedure Note ---
Date of procedure: 07/02/19 Consent Obtained: Written consent Timeout: Correct patient and procedure verified, Correct site verified, Time out performed, Skin prep completed Local anesthetic: Lidocaine 1% Was there an field administrative assistant present: No Estimated blood loss (cc): 0 Complications: None; Tolerated procedure well Indications: rt hip abscess Procedure Performed: drainage Site/Technique: rt hip/soft tissue Results/Findings (any specimens removed): bloody fluid drained, could be infected hematoma Post Procedure Treatment Plan: to suction with GRAYSON bulb Specimen: 5cc bloody fluid
[2019-07-02] MEDS: Insulin LISPRO 300 UNITS/3 ML VIAL SQ SCH ×3 (10:29→18:37)
[2019-07-02] MEDS: clonazePAM 1 MG TABLET PO SCH ×4 (10:56→22:36)
[2019-07-02] MEDS: Ziprasidone 80 MG CAPSULE PO SCH ×2 (10:57→22:36)
[2019-07-02] MEDS: Magnesium Oxide 400 MG TABLET PO SCH (10:57)
[2019-07-02] MEDS: Diltiazem CD (24hr) 180 MG CAPSULE PO SCH (10:57)
[2019-07-02] MEDS: Insulin DETEMIR 100 UNIT/ML X5UNITS SQ SCH ×2 (11:02→22:36)
[2019-07-02] MEDS: Meropenem 1,000 MG in 0.9 % Sodium Chloride Mini Bag 100 ML IVPB SCH ×3 (13:50→22:34)
--- NOTE | 2019-07-02 15:27 | Internal Med Progress Note ---
Hospitalist Progress Note - Encounter Date of Encounter: 07/02/19 Time of Encounter: 15:23 - Subjective Interval History: Evaluated patient earlier. Used software design analyst for the interview. Patient underwent right hip aspiration and drain placement earlier this morning. He was also noted to have a decreased hemoglobin level and is currently receiving blood transfusion. Patient denies any overt GI bleeding. However he is also on Xarelto which was held for his procedure. He denies any abdominal pain. No nausea or vomiting. - Exam Vitals: Temp Pulse Resp BP Pulse Ox 98.6 F 106 16 136/69 99 07/02/19 13:30 07/02/19 13:30 07/02/19 13:30 07/02/19 13:30 07/02/19 10:50 Exam: General: Patient is alert, no acute distress, ENT: Patient is deaf at baseline. Communicates with writing and through sign language Respiratory: Good respiratory effort. Normal breath sounds. No wheezing or crackles. Cardiovascular: Regular rate and rhythm. s1 and s2 normal No clicks, rubs, gallops, or murmurs. No pedal edema Abdomen: Abdomen is soft, nontender. Bowel sounds are present Musculoskeletal: Right hip drain in place Skin: warm, dry, intact. Neuro: Alert oriented x 3 normal cranial nerves, no focal deficits - Assessment and Plan (1) Septic arthritis Current Visit: Yes Status: Acute (2) Acute blood loss anemia Current Visit: Yes Status: Suspected (3) Hypertension Current Visit: No Status: Chronic (4) DM type 2 (diabetes mellitus, type 2) Current Visit: No Status: Chronic (5) Hyperlipidemia Current Visit: No Status: Chronic (6) Leukocytosis Current Visit: Yes Status: Acute (7) Bipolar 1 disorder Current Visit: No Status: Chronic (8) GERD (gastroesophageal reflux disease) Current Visit: No Status: Acute (9) Abscess of right hip Current Visit: Yes Status: Acute (10) DVT prophylaxis Current Visit: No Status: Acute DVT Prophylaxis: Hold anticoagulation due to sudden drop in hemoglobin. - Summary of Assessment and Plan Summary of Assessment and Plan: Septic arthritis involving right hip joint: Currently on IV antibiotics. These done prior cultures, patient grew Pseudomonas and Klebsiella both of which were sensitive to carbapenems. Will place patient on meropenem. Patient is also receiving vancomycin. Will stop vancomycin if cultures are negative tomorrow. Acute anemia: Concern for acute blood loss anemia. Patient receiving blood transfusion. We will check stool for occult blood. Patient is on PPI. Will switch to IV Liquid diet for now. Consult GI for scoping if hemoglobin levels continue to go down. Hold Xarelto. Diabetes mellitus type 2: Monitor blood sugars. Diabetic diet when patient is able to eat. Bipolar 1 disorder: Continue Geodon, Seroquel. Essential hypertension: Well controlled. Continue Cardizem, losartan. High risk for complications. - Time Spent with Patient Total time spent is greater than 50% in coordination of care (as documented) at patient's floor/unit and/or counseling patient: Internal Medicine: Result - Labs CBC & Chem 7: 07/01/19 20:44 07/02/19 07:35 Labs: Short CBC 07/01/19 07/01/19 Range/Units 19:08 20:44 WBC 10.6 12.9 H (4.3-11.1) K/mcL Hgb 7.0 L 5.9 L* (12.9-16.9) g/dL Hct 23.4 L 19.7 L (37.5-50.1) % Plt Count 414 H 436 H (140-400) K/mcL Neutrophils # 7.3 9.1 H (1.6-8.9) K/mcL BMP 07/01/19 07/02/19 19:08 07:35 Sodium 129 L 135 L Potassium 4.0 4.1 Chloride 103 105 Carbon Dioxide 22 L 21 L BUN 16 18 Creatinine 1.01 0.93 Glucose 224 H 138 H Calcium 9.0 9.1 - Impressions Impressions Drainage Catheter Insertion 07/02/19 00:00 IMPRESSION: Successful ultrasound guided placement of right hip abscess drainage catheter. There is a suggestion of an infected hematoma based on the appearance of the fluid aspirated. D/ / 07/02/2019 12:12:27 Fern Brasher MD / araceli Interpreting Provider: Fern Brasher MD Consult Discharge Plan - Plan Referrals: Kristofer Peacock MD [Primary Care Provider] - (1) Septic arthritis Qualifiers: Septic arthritis location: hip Septic arthritis organism: due to other bacteria Laterality: right Qualified Code(s): M00.851 - Arthritis due to other bacteria, right hip (3) Hypertension Qualifiers: Hypertension type: essential hypertension Qualified Code(s): I10 - Essential (primary) hypertension (4) DM type 2 (diabetes mellitus, type 2) Qualifiers: Diabetes mellitus exterminator helper insulin use: with fci use Diabetes mellitus complication status: without complication Qualified Code(s): E11.9 - Type 2 diabetes mellitus without complications; Z79.4 - senior living (current) use of insulin (5) Hyperlipidemia Qualifiers: Hyperlipidemia type: unspecified Qualified Code(s): E78.5 - Hyperlipidemia, unspecified (6) Leukocytosis Qualifiers: Leukocytosis type: unspecified Qualified Code(s): D72.829 - Elevated white blood cell count, unspecified (8) GERD (gastroesophageal reflux disease) Qualifiers: Esophagitis presence: without esophagitis Qualified Code(s): K21.9 - Gastro- esophageal reflux disease without esophagitis
[2019-07-02 16:28] LABS: Basophils # 0.1 K/mcL (0.0-0.2); Basophils % 0.5 %; Eosinophils # 0.2 K/mcL (0.0-0.6); Eosinophils % 2.2 %; Hematocrit 31.3 % (37.5-50.1); Hemoglobin 9.7 g/dL (12.9-16.9); Immature Granulocytes % 3.7 % (0-4); Lymphocytes # 1.8 K/mcL (0.6-4.6); Lymphocytes % 16.5 %; Mean Corpuscular Hemoglobin 27.1 pg (28.0-33.3); Mean Corpuscular Volume 87.4 fL (83.0-100.0); Mean Platelet Volume 9.1 fL (9.4-12.4); Monocytes # 0.7 K/mcL (0.0-1.3); Monocytes % 6.2 %; Neutrophils # 7.7 K/mcL (1.6-8.9); Platelet Count 368 K/mcL (140-400); Red Blood Count 3.58 M/mcL (4.19-5.50); Red Cell Distribution Width 13.7 % (11.5-14.5); Segmented Neutrophils % 70.9 %; White Blood Count 10.9 K/mcL (4.3-11.1)
[2019-07-02] MEDS ORDERED: Ringers Solution, Lactated 1,000 ML ONE (18:31)
[2019-07-02] MEDS: Pantoprazole 40 MG VIAL IVP SCH (18:39)
[2019-07-02] MEDS ORDERED: Piperacillin/Tazobactam 3.375 GM in 0.9 % Sodium Chloride Mini Bag 100 ML IVPB SCH (20:00)
[2019-07-02] MEDS ORDERED: Ketoconazole Shampoo 120 ML BOTTLE TP SCH (21:30)
[2019-07-03] MEDS: *HR* Heparin 5,000 UNIT/ML VIAL SQ SCH ×2 (05:15→17:42)
[2019-07-03] MEDS: Pantoprazole 40 MG VIAL IVP SCH ×2 (05:15→17:42)
--- NOTE | 2019-07-03 06:55 | Anesthesia Evaluation PreOp ---
Date of Encounter: 07/03/19 Time of Encounter: 19:26 - Past History Planned Operation: Right Hip I & D Cardiac History: HTN, Hyperlipidemia Pulmonary History: COPD, ZAID Dx (no formal diagnosis but has Bipap machine in his hospital room) NURSING INFORMATICS ANALYST History: Seizures, Other (complete deafness---communicates through writing and sign language) Other Medical History: Diabetes Type II, Thyroid, GERD, Other (bipolar) Anesthesia History: No Prior Anesthetic Complications, Past Anesthesia (right THR---revision right femoral component 06/17/2019) Alcohol Use: rarely Drug use: none Medications and Allergies Albuterol Sulfate [Ventolin Hfa] 2 puff IH Q4H PRN 04/21/19 [History] Allopurinol [Zyloprim 100 MG] 100 mg PO BID 04/21/19 [History] Escitalopram [Lexapro] 20 mg PO HS 04/21/19 [History] Guaifenesin [Mucinex] 600 mg PO BID PRN 04/21/19 [History] Insulin ASPART [NovoLOG] 0 units SQ QID 04/21/19 [History] Insulin Glargine,Hum.rec.anlog [Basaglar Kwikpen U-100] 60 unit SQ BID 04/21/19 [History] Liraglutide [Victoza 3-Teja] 1.8 mg SQ DAILY 04/21/19 [History] Losartan Potassium [Cozaar] 50 mg PO DAILY 04/21/19 [History] Omeprazole [PriLOSEC] 20 mg PO BID 04/21/19 [History] Oxycodone HCl/Acetaminophen [Percocet 10-325 mg Tablet] 1 tab PO QID PRN 04/21/19 [History] Ziprasidone HCl [Geodon] 80 mg PO BID 04/21/19 [History] clonazePAM [Clonazepam] 2 mg PO QID 04/21/19 [History] Pravastatin Sodium [Pravachol] 20 mg PO HS 06/04/19 [History] Quetiapine Fumarate [Seroquel Xr] 300 mg PO BID 06/04/19 [History] Bimatoprost [Lumigan] 1 drop BOTH EYES QPM 06/05/19 [History] Ergocalciferol (VITAMIN D2) [Vitamin D2] 50,000 unit PO SUWE 06/05/19 [History] Ketoconazole Shampoo [Nizoral Shampoo] 1 appl TP Q48H 06/05/19 [History] Non-Formulary Medication 100 mg PO BID 06/05/19 [History] Vit #108/Iron/FA [ One Tablet] 1 tab PO DAILY 06/05/19 [History] clonazePAM [Clonazepam] 1 mg PO QID PRN 06/05/19 [History] Furosemide [Lasix] 20 mg PO DAILY tablet 06/13/19 [Rx] Magnesium Oxide [Mag-Ox] 400 mg PO DAILY #7 tablet 06/13/19 [Rx] Potassium Chloride 20 meq PO BID #60 tab.er.prt 06/13/19 [Rx] Rivaroxaban [Xarelto] 10 mg PO 1700 #21 tablet 06/13/19 [Rx] Diltiazem HCl [Cardizem LA] 180 mg PO DAILY 06/15/19 [History] Patient Taking Own Medication 0 each PO BID each 06/20/19 [Rx] Allergy/AdvReac Type Severity Reaction Status Date / Time fentanyl AdvReac See Verified 06/05/19 17:34 Comments IV CONTRAST DYE Allergy See Uncoded 06/05/19 17:34 Comments - Meds/Allergy Pre-op Review Medications Reviewed: Yes Allergies Reviewed: Yes Beta Blockers on Current Med List: No Anesthesia Results - Labs 07/03/19 04:00 07/03/19 04:00 - Imaging EKG: report reviewed (06/04/2019 Sinus tachycardia Right axis deviation Anterolateral infarct, age indeterminate) Additional studies: 08/19/2018 Stress Impression: Perfusion study is negative for ischemia or infarct. Normal perfusion study. Stress LVEF 58%. No ischemic stress ECG findings. No abnormal hemodynamic changes during stress test. Anesthesia Exam Vital Signs/O2 Sat/Glucose, Most Recent Temp Pulse Resp BP Pulse Ox 97.9 F 110 16 135/89 98 07/03/19 16:38 07/03/19 16:38 07/03/19 16:38 07/03/19 16:38 07/03/19 16:38 Blood Glucose* 213 Height: 6' Weight: 236 lbs NPO (# of Hours): 8 Pain Scale: 0 Pain Scale Used: Numeric (1 - 10) - HEENT Pupil (Motor): EOMI Mallampati: III Teeth: Normal Oral Opening: Greater than 3 - NURSING INFORMATICS ANALYST LOC: Oriented NURSING INFORMATICS ANALYST Motor: Normal RUE, Normal LUE, Normal RLE, Normal LLE, Normal Face NURSING INFORMATICS ANALYST Sensory: Normal: RUE, LUE, RLE, LLE, Deficit: Face (complete deafness) - Cardiac Rhythm: Regular Murmur: None - Pulmonary Breath Sounds: bilateral Clear Respiratory Effort: Symmetrical Anesthesia Assess/Plan ASA Score: 3 (Communicated through video welder tack. Questions answered. Patient wishes to proceed.) Level of consciousness: Cooperative, Oriented, Tranquil Anesthetic Plan: General Monitoring Plan: Standard Monitors Recovery Plan: PACU
[2019-07-03] MEDS ORDERED: Furosemide 40 MG TABLET PO SCH (09:00)
[2019-07-03] MEDS: Insulin LISPRO 300 UNITS/3 ML VIAL SQ SCH ×3 (10:12→17:44)
[2019-07-03] MEDS: Diltiazem CD (24hr) 180 MG CAPSULE PO SCH (10:26)
[2019-07-03] MEDS: clonazePAM 1 MG TABLET PO SCH ×4 (10:26→20:54)
[2019-07-03] MEDS: Prenatal Vit/FA 1 EACH TABLET PO SCH (10:26)
[2019-07-03] MEDS: Magnesium Oxide 400 MG TABLET PO SCH (10:26)
[2019-07-03] MEDS: Ziprasidone 80 MG CAPSULE PO SCH ×2 (10:26→20:55)
[2019-07-03] MEDS: Meropenem 1,000 MG in 0.9 % Sodium Chloride Mini Bag 100 ML IVPB SCH ×2 (10:27→17:43)
[2019-07-03] MEDS: Insulin DETEMIR 100 UNIT/ML X5UNITS SQ SCH ×2 (10:55→20:58)
[2019-07-03 11:22] LABS: Basophils # 0.1 K/mcL (0.0-0.2); Basophils % 0.6 %; Eosinophils # 0.2 K/mcL (0.0-0.6); Eosinophils % 1.9 %; Hemoglobin 10.1 g/dL (12.9-16.9); Immature Granulocytes % 3.1 % (0-4); Lymphocytes # 1.5 K/mcL (0.6-4.6); Lymphocytes % 14.5 %; Mean Corpuscular HGB Conc 30.6 g/dL (31.6-35.5); Mean Corpuscular Hemoglobin 27.2 pg (28.0-33.3); Mean Corpuscular Volume 88.7 fL (83.0-100.0); Monocytes # 0.6 K/mcL (0.0-1.3); Monocytes % 6.1 %; Neutrophils # 7.6 K/mcL (1.6-8.9); Platelet Count 359 K/mcL (140-400); Red Blood Count 3.72 M/mcL (4.19-5.50); Red Cell Distribution Width 13.8 % (11.5-14.5); Segmented Neutrophils % 73.8 %; White Blood Count 10.3 K/mcL (4.3-11.1)
[2019-07-03 11:43] LABS: BUN/Creatinine Ratio 18 (6-26); Blood Urea Nitrogen 14 mg/dL (6-20); Calcium 9.2 mg/dL (8.6-10.3); Carbon Dioxide 21 mEq/L (23-29); Chloride 102 mEq/L (98-107); Glucose 198 mg/dL (70-105); Osmolality,Calculated 280 (280-300); Sodium 132 mEq/L (136-145); Vancomycin,Trough 17 mcg/mL (5-10); eGFR For African Americans > 60 (> 60); eGFR For Non-African Americans > 60 (> 60)
--- NOTE | 2019-07-03 16:31 | Internal Med Progress Note ---
Hospitalist Progress Note - Encounter Date of Encounter: 07/03/19 Time of Encounter: 10:25 - Subjective Interval History: Patient was seen this exam. Communicated through video bpo specialist. He is happy he is eating and denied chest pain, shortness of breath or palpitation. He had no nausea/vomiting or abdominal pain. His hip pain is under control. - Exam Vitals: Temp Pulse Resp BP Pulse Ox 98.3 F 109 16 137/86 98 07/03/19 11:33 07/03/19 11:33 07/03/19 11:33 07/03/19 11:33 07/03/19 11:33 Exam: General: Patient is alert, no acute distress, ENT: Patient is deaf at baseline. Communicates with writing and through sign language Respiratory: Good respiratory effort. Normal breath sounds. No wheezing or crackles. Cardiovascular: Regular rate and rhythm. s1 and s2 normal No clicks, rubs, gallops, or murmurs. No pedal edema Abdomen: Abdomen is soft, nontender. Bowel sounds are present Musculoskeletal: Right hip drain in place draining bloody fluid. Skin: warm, dry, intact. Neuro: Alert oriented x 3 normal cranial nerves, no focal deficits - Assessment and Plan (1) Hypertension Current Visit: No Status: Chronic (2) DM type 2 (diabetes mellitus, type 2) Current Visit: No Status: Chronic (3) Hyperlipidemia Current Visit: No Status: Chronic (4) Leukocytosis Current Visit: Yes Status: Acute (5) DVT prophylaxis Current Visit: No Status: Acute (6) Bipolar 1 disorder Current Visit: No Status: Chronic (7) Acute blood loss anemia Current Visit: Yes Status: Suspected (8) GERD (gastroesophageal reflux disease) Current Visit: No Status: Acute (9) Abscess of right hip Current Visit: Yes Status: Acute (10) Septic arthritis Current Visit: Yes Status: Acute - Summary of Assessment and Plan Summary of Assessment and Plan: Mr. Prince is a 43 year old male with above medical history significant for diabetes mellitus, presented from the [facility] swing bed for drainage of right hip abscess. Patient had right hip arthroplasty, followed by a fall, with resultant periprostatic fracture of the femur, then he underwent right revision femoral hip component surgery on 06/17/2019, and then he was discharged to swing [facility] for PT/OT. He initially made good progress but after a few days reported worsening pain in the right hip. His performance in therapy declined secondary to the pain. There was noted to be green drainage from the superior portion of the right hip surgical incision. Wound culture returned showing Pseudomonas and Klebsiella MDRO. [facility] June 29 when final c/s report was available. Right hip CT scan was ordered on July 01 which showed findings concerning for abscess with intra-articular extension with resultant septic arthritis. Patient was then sent to [facility] for IR to perform aspiration. Right hip Septic arthritis: s/p drainage done by IR. Elevated ESR and CRP. Currently on IV antibiotics meropenem and renally dosed vancomycin. These done prior cultures, patient grew Pseudomonas and Klebsiella both of which were sensitive to carbapenems now growing gram-positive cocci. He is afebrile, hemodynamically stable, leukocytosis resolved. Orthopedic surgery is consulted and appreciate recommendation. Infectious diseases health consultant. Tomorrow for possible I&D. Acute anemia: Concern for acute blood loss anemia. Hemoglobin at presentation was 5.9, patient received 3 units of PRBCs with good response of his hemoglobin today 10.1. We will check stool for occult blood. Patient is on PPI. Was on Xarelto for DVT ppx post surgery. Now on hold. CHeck CBC tomorrow Hyponatremia: - Check urine sodium and urine osmolarity. Patient on multiple psychiatric medication which could trigger SIADH. Hold Lasix as the patient is euvolemic. Check BMP tomorrow Diabetes mellitus type 2: Controlled, Monitor blood sugars before meals and at bedtime. Continue Levemir 30 units twice a day and sliding scale short-acting insulin.. Bipolar 1 disorder: Continue Geodon, Seroquel and Lexapro. Essential hypertension: Well controlled. Continue Cardizem, losartan. High risk for complications. DVT ppx: heparin sc I reviewed independently all laboratory workup, pertinent images including x- rays and CT scans. I also reviewed independently and EKGs and my findings are in the body of my assessment and plan. I ordered the laboratory workup and images myself. I discussed finding with patient's, their families, RN's and consultants involved in the care of the patient. - Time Spent with Patient Total time spent is greater than 50% in coordination of care (as documented) at patient's floor/unit and/or counseling patient: Plan of Care Discussed with: patient Internal Medicine: Result - Labs CBC & Chem 7: 07/03/19 04:00 07/03/19 04:00 Labs: Short CBC 07/02/19 07/03/19 Range/Units 16:12 04:00 WBC 10.9 10.3 (4.3-11.1) K/mcL Hgb 9.7 L D 10.1 L (12.9-16.9) g/dL Hct 31.3 L 33.0 L (37.5-50.1) % Plt Count 368 359 (140-400) K/mcL Neutrophils # 7.7 7.6 (1.6-8.9) K/mcL BMP 07/03/19 04:00 Sodium 132 L Potassium 4.0 Chloride 102 Carbon Dioxide 21 L BUN 14 Creatinine 0.79 Glucose 198 H Calcium 9.2 Consult Discharge Plan - Plan Referrals: Kristofer Peacock MD [Primary Care Provider] - (1) Hypertension Qualifiers: Hypertension type: essential hypertension Qualified Code(s): I10 - Essential (primary) hypertension (2) DM type 2 (diabetes mellitus, type 2) Qualifiers: Diabetes mellitus termite technician insulin use: with termite technician use Diabetes mellitus complication status: without complication Qualified Code(s): E11.9 - Type 2 diabetes mellitus without complications; Z79.4 - retirement (current) use of insulin (3) Hyperlipidemia Qualifiers: Hyperlipidemia type: unspecified Qualified Code(s): E78.5 - Hyperlipidemia, unspecified (4) Leukocytosis Qualifiers: Leukocytosis type: unspecified Qualified Code(s): D72.829 - Elevated white blood cell count, unspecified (8) GERD (gastroesophageal reflux disease) Qualifiers: Esophagitis presence: without esophagitis Qualified Code(s): K21.9 - Gastro- esophageal reflux disease without esophagitis (10) Septic arthritis Qualifiers: Septic arthritis location: hip Septic arthritis organism: due to other bacteria Laterality: right Qualified Code(s): M00.851 - Arthritis due to other bacteria, right hip
[2019-07-03] MEDS ORDERED: Latanoprost 2.5 ML BOTTLE BOTH EYES SCH (18:00)
[2019-07-03] MEDS: *HR* HYDROcodone/Acet 5/325 mg TABLET PO PRN (21:07)
[2019-07-04 01:01] LABS: Basophils % 0.4 %; Eosinophils # 0.2 K/mcL (0.0-0.6); Eosinophils % 1.8 %; Hematocrit 31.7 % (37.5-50.1); Immature Granulocytes % 2.2 % (0-4); Lymphocytes # 2.1 K/mcL (0.6-4.6); Lymphocytes % 19.8 %; Mean Corpuscular HGB Conc 31.5 g/dL (31.6-35.5); Mean Corpuscular Hemoglobin 27.9 pg (28.0-33.3); Mean Corpuscular Volume 88.3 fL (83.0-100.0); Monocytes # 0.8 K/mcL (0.0-1.3); Monocytes % 7.6 %; Neutrophils # 7.3 K/mcL (1.6-8.9); Platelet Count 378 K/mcL (140-400); Red Blood Count 3.59 M/mcL (4.19-5.50); Red Cell Distribution Width 13.8 % (11.5-14.5); Segmented Neutrophils % 68.2 %; White Blood Count 10.7 K/mcL (4.3-11.1)
[2019-07-04 01:18] LABS: BUN/Creatinine Ratio 18 (6-26); Blood Urea Nitrogen 14 mg/dL (6-20); Calcium 9.2 mg/dL (8.6-10.3); Carbon Dioxide 20 mEq/L (23-29); Chloride 103 mEq/L (98-107); Glucose 136 mg/dL (70-105); Osmolality,Calculated 279 (280-300); Potassium 3.8 mEq/L (3.5-5.1); Sodium 133 mEq/L (136-145); eGFR For African Americans > 60 (> 60); eGFR For Non-African Americans > 60 (> 60)
[2019-07-04] MEDS: Meropenem 1,000 MG in 0.9 % Sodium Chloride Mini Bag 100 ML IVPB SCH ×3 (01:32→15:28)
[2019-07-04] MEDS: Pantoprazole 40 MG VIAL IVP SCH ×2 (05:36→18:17)
[2019-07-04] MEDS: *HR* Heparin 5,000 UNIT/ML VIAL SQ SCH (05:38)
[2019-07-04] MEDS: Insulin LISPRO 300 UNITS/3 ML VIAL SQ SCH ×3 (07:30→16:57)
--- NOTE | 2019-07-04 08:43 | Infectious Disease Consult ---
Infectious Disease-Consult - Encounter Date/Time Date of Encounter: 07/04/19 Time of Encounter: 10:00 - Data of Consult Patient: new to practice Reason for consult: Right hip abscess Consult date: 07/04/19 Requesting Physician: Cintia Nelson Primary Care Provider: Kristofer Peacock MD - HPI HPI: Mr. Prince is a 3-year-old male with a past medical history of hearing impairment, diabetes, CHF, COPD, GERD, glaucoma, hypertension, chronic kidney disease, seizure disorder, bipolar, and depression. The patient was admitted to the hospital 07/01/19 for right hip abscess. We are consulted 07/04/19 for further workup and treatment recommendations for right hip abscess. Briefly, the patient's a 43-year-old male with past medical history as stated above. The patient is evaluated with the assistance of an electronic in terpreter. The patient is stating a fall at the end of April that resulted in a right subcapital hip fracture with varus deformity. He was seen in our emergency department on 06/04/19 and underwent a right hip total arthroplasty 06/05/19. He was getting out of the shower about a week after surgery and felt a pop. He was evaluated in the ER on 06/13/19. His x-ray showed a periprosthetic fracture adjacent to the stem of the femoral component. He had up signing out of the hospital AMA. He was readmitted to the hospital 06/15 and underwent a right revision femoral head component 06/17/19. He is discharged to [facility] for rehabilitation. Apparently, he developed some wound drainage. He had a c ulture done that grew pseudomonas and multidrug resistant Klebsiella pneumoniae. He had a right hip CT that showed findings consistent with abscess and possible hematoma. He was transferred to [facility] for further evaluation and treatment. Upon arrival, the patient had leukocytosis and tachycardia. He was afebrile and otherwise hemodynamically stable. Renal function was normal. ESR was elevated at 44 with a CRP of 154. Blood cultures obtained on admission are no growth to date. He was evaluated by interventional radiology and underwent right hip drainage on 07/02/19. Approximately 5 mL of bloody fluid was aspirated. The culture is still pending, but the Gram stain shows gram-positive cocci. Since admission, his leukocytosis has resolved. He continues to be tachycardic. Currently, he is on vancomycin and meropenem. We have asked to evaluate and make further recommendations. During my exam today, the patient endorses a history as stated above. He denies fevers, chills, rigors. Denies chest pain, shortness of breath, or cough. Denies nausea, vomiting, diarrhea, or constipation. Denies abdominal pain or urinary complaints. Denies oral thrush or skin rashes. Denies pain in his right hip at this time. States his appetite is good. Denies pain in his back, joints, or extremities. - ROS Review of Systems: All systems reviewed and no additional remarkable complaints except as stated. - Results CBC & Chem 7: 07/04/19 00:36 07/04/19 00:36 - Exam Vitals: Temp Pulse Resp BP Pulse Ox 98.8 F 105 16 101/67 98 07/04/19 07:15 07/04/19 07:15 07/04/19 07:15 07/04/19 07:15 07/04/19 07:15 Exam: Head: Atraumatic, normal inspection, normocephalic. Eye: EOMI, PERRLA, no scleral icterus noted. ENT: Mucous membranes moist. No odontogenic infection noted. Neck: Normal inspection, no meningismus. Respiratory: Clear to auscultation. No rales, respiratory distress, rhonchi, or wheezes noted. Cardiovascular: Regular rate and rhythm, S1 and S2 audible. No murmurs, rubs, or gallops. GI: Soft, distended, normal bowel sounds. Nontender. Extremities: No joint swelling, pedal edema, or tenderness noted. Right lateral hip surgical incision with dressing intact. Old bloody drainage noted. GRAYSON drain with sanguinous drainage. No tenderness or fluctuance noted. Small area of wound dehiscence noticed posterior aspect of the surgical site. Neurological: Alert, oriented 3, no focal deficits. Psychiatric: normal affect, normal mood. Skin: Dry, intact, warm. Normal color. No rashes. Albuterol Sulfate [Ventolin Hfa] 2 puff IH Q4H PRN 04/21/19 [History] Allopurinol [Zyloprim 100 MG] 100 mg PO BID 04/21/19 [History] Escitalopram [Lexapro] 20 mg PO HS 04/21/19 [History] Guaifenesin [Mucinex] 600 mg PO BID PRN 04/21/19 [History] Insulin ASPART [NovoLOG] 0 units SQ QID 04/21/19 [History] Insulin Glargine,Hum.rec.anlog [Basaglar Kwikpen U-100] 60 unit SQ BID 04/21/19 [History] Liraglutide [Victoza 3-Teja] 1.8 mg SQ DAILY 04/21/19 [History] Losartan Potassium [Cozaar] 50 mg PO DAILY 04/21/19 [History] Omeprazole [PriLOSEC] 20 mg PO BID 04/21/19 [History] Oxycodone HCl/Acetaminophen [Percocet 10-325 mg Tablet] 1 tab PO QID PRN 04/21/19 [History] Ziprasidone HCl [Geodon] 80 mg PO BID 04/21/19 [History] clonazePAM [Clonazepam] 2 mg PO QID 04/21/19 [History] Pravastatin Sodium [Pravachol] 20 mg PO HS 06/04/19 [History] Quetiapine Fumarate [Seroquel Xr] 300 mg PO BID 06/04/19 [History] Bimatoprost [Lumigan] 1 drop BOTH EYES QPM 06/05/19 [History] Ergocalciferol (VITAMIN D2) [Vitamin D2] 50,000 unit PO SUWE 06/05/19 [History] Ketoconazole Shampoo [Nizoral Shampoo] 1 appl TP Q48H 06/05/19 [History] Non-Formulary Medication 100 mg PO BID 06/05/19 [History] Vit #108/Iron/FA [ One Tablet] 1 tab PO DAILY 06/05/19 [History] clonazePAM [Clonazepam] 1 mg PO QID PRN 06/05/19 [History] Furosemide [Lasix] 20 mg PO DAILY tablet 06/13/19 [Rx] Magnesium Oxide [Mag-Ox] 400 mg PO DAILY #7 tablet 06/13/19 [Rx] Potassium Chloride 20 meq PO BID #60 tab.er.prt 06/13/19 [Rx] Rivaroxaban [Xarelto] 10 mg PO 1700 #21 tablet 06/13/19 [Rx] Diltiazem HCl [Cardizem LA] 180 mg PO DAILY 06/15/19 [History] Patient Taking Own Medication 0 each PO BID each 06/20/19 [Rx] Allergy/AdvReac Type Severity Reaction Status Date / Time fentanyl AdvReac See Verified 06/05/19 17:34 Comments IV CONTRAST DYE Allergy See Uncoded 06/05/19 17:34 Comments - Assessment and Plan (1) Sepsis Current Visit: Yes Status: Acute The patient had 2 sepsis criteria including tachycardia and leukocytosis. Likely secondary to right hip abscess. Improved. Leukocytosis resolved. Continues to have tachycardia. Blood cultures drawn 07/01/19 are no growth to date 2 sets. Qualifiers: Sepsis type: sepsis due to unspecified organism Sepsis acute organ dysfunction status: without acute organ dysfunction Qualified Code(s): A41.9 - Sepsis, unspecified organism SNOMED Code(s): 72317522 (2) Abscess of right hip Current Visit: Yes Status: Acute Location: Right hip. Causative organism: Pseudomonas, [id number] Klebsiella pneumoniae, and GPC (final ID and sensitivity pending). Etiology: Likely secondary to recent surgical procedures. CT of the head showed a focal fluid collection with internal gas along the lateral aspect proximal femur which appears to extend intra-articular with her right hip joint effusion and some foci of intra-articular gas. Findings are highly concerning for abscess with intra-articular extension and resultant septic arthritis. Overlying and surrounding cellulitis noted. There was also an intramuscular hematoma to the right gluteus inder muscle laterally towards its proximal aspect. No associated soft tissue gas and focus is felt to be unrelated to the aforementioned infectious changes. Status post CT-guided drain placement 07/02/19 by interventional radiology. 5 mL of bloody fluid aspirated. Culture is pending, but Gram stain shows gram- positive cocci. Orthopedics consulted. Currently on vancomycin and meropenem. SNOMED Code(s): 441866 (3) Anemia Current Visit: No Status: Acute Etiology: Unclear. Patient denies blood in the stool. Further workup and management per the primary team. Qualifiers: Anemia type: unspecified type Qualified Code(s): D64.9 - Anemia, uns pecified SNOMED Code(s): 347876754 (4) Fracture of right hip Current Visit: No Status: Acute Status post fall in April 2019. Status post right total hip arthroplasty 06/05/19. Status post right revision femoral head component 06/17/19. Qualifiers: Encounter type: initial encounter Fracture type: closed Qualified Code(s): S72.001A - Fracture of unspecified part of neck of right femur, initial encounter for closed fracture SNOMED Code(s): 103857604 (5) GERD (gastroesophageal reflux disease) Current Visit: No Status: Acute Qualifiers: Esophagitis presence: without esophagitis Qualified Code(s): K21.9 - Gastro-esophageal reflux disease without esophagitis SNOMED Code(s): 021014554 (6) Gout Current Visit: No Status: Acute Qualifiers: Gout site: unspecified site Gout etiology: unspecified cause Chronicity: chronic Presence of tophus: without tophus Qualified Code(s): M1A.9XX0 - Chronic gout, unspecified, without tophus (tophi) SNOMED Code(s): 74573166 (7) Bipolar 1 disorder Current Visit: No Status: Chronic SNOMED Code(s): 326887243 (8) DM type 2 (diabetes mellitus, type 2) Current Visit: No Status: Chronic Recommend aggressive glucose monitoring and control to promote wound healing and prevent reinfection. Management per the primary team. Qualifiers: Diabetes mellitus halfway insulin use: with rodent exterminator use Diabetes mellitus complication status: without complication Qualified Code(s): E11.9 - Type 2 diabetes mellitus without complications; Z79.4 - terminal carman (current) use of insulin SNOMED Code(s): 36089595 (9) Hyperlipidemia Current Visit: No Status: Chronic Qualifiers: Hyperlipidemia type: unspecified Qualified Code(s): E78.5 - Hyperlipidemia, unspecified SNOMED Code(s): 11445625 (10) Hypertension Current Visit: No Status: Chronic Qualifiers: Hypertension type: essential hypertension Qualified Code(s): I10 - Essential (primary) hypertension SNOMED Code(s): 47767980 (11) Seizure disorder Current Visit: No Status: Chronic SNOMED Code(s): 722680573 - Recommendations Recommendations: Await hip fluid cultures to finalize. Await blood cultures to finalize. Await further recommendations from the ID team. Continue Vancomycin IV. Pharmacy to dose. Goal trough ~15. Continue Meropenem 1 gram IV Q8H. Duration of treatment depends on the clinical picture. Monitor renal function and for drug toxicity and dose-adjust antibiotics. Contact precautions per hospital policy. Past Med Surg Social Fam HX - Past Medical History Attestation: Yes The following information was validated with the patient. Source: patient, old records reviewed, nursing notes reviewed Medical history: non-contributory, CHF, COPD, diabetes, GERD, glaucoma, hypertension, renal disease, seizures Additional medical history: CARDIOMEGALY Psychiatric history: bipolar, depression, other - Past Surgical History Surgical History: hip replacement Additional surgical history: Glaucoma surgery right eye, hip. LEFT ELBOW - Social History Smoking Status: Never smoker Smokeless Tobacco Status: No Alcohol use: rarely Drug use: none - Family History Mother Adopted: No Family Member Ethnicity: Non- Living Status: Hx Family Cardiac Disorders: No Hx Family Respiratory Disorders: No Hx Family Cancer: Yes (breast ca and lung ca mets to brain.) Hx Family GI Disorders: No Hx Family Endocrine Disorder: No Hx Family Neuromuscular Disorders: No Hx Family Neurologic Disorders: No Hx Family HEENT Disorders: No Hx Family Autoimmune Disorders: No Father Adopted: No Living Status: Hx Family Cardiac Disorders: No Hx Family Respiratory Disorders: No Hx Family Cancer: No Hx Family GI Disorders: No Hx Family Endocrine Disorder: Yes (DM) Hx Family Neuromuscular Disorders: No Hx Family Neurologic Disorders: No Hx Family HEENT Disorders: No Hx Family Autoimmune Disorders: No Brother Adopted: No Family Member Ethnicity: Non- Living Status: Hx Family Cardiac Disorders: Yes ( at 27 to cardiac event) Hx Family Respiratory Disorders: No Hx Family Cancer: No Hx Family GI Disorders: No Hx Family Endocrine Disorder: No Hx Family Neuromuscular Disorders: No Hx Family Neurologic Disorders: No Hx Family HEENT Disorders: No Hx Family Autoimmune Disorders: No Consult Discharge Plan - Plan Referrals: Kristofer Peacock MD [Primary Care Provider] -
[2019-07-04] MEDS: Diltiazem CD (24hr) 180 MG CAPSULE PO SCH (08:46)
[2019-07-04] MEDS: Insulin DETEMIR 100 UNIT/ML X5UNITS SQ SCH ×2 (08:48→21:12)
[2019-07-04] MEDS: Ziprasidone 80 MG CAPSULE PO SCH ×2 (08:48→21:14)
[2019-07-04] MEDS: clonazePAM 1 MG TABLET PO SCH ×4 (08:48→21:12)
[2019-07-04] MEDS: Prenatal Vit/FA 1 EACH TABLET PO SCH (08:49)
[2019-07-04] MEDS: Magnesium Oxide 400 MG TABLET PO SCH (08:49)
--- NOTE | 2019-07-04 09:46 | Orthopedics Progress Note ---
Date of Encounter: 07/04/19 Time of Encounter: 09:00 - Assessment and Plan (1) History of total right hip arthroplasty Current Visit: Yes Status: Acute (2) Abscess of right hip Current Visit: Yes Status: Acute Subjective Principal diagnosis: right hip infection Interval history: Patient is well known to [facility] with complex history regarding his right hip. He had a Right revision femoral hip component Date: 06/17/19 Right hip hemiarthroplasty [Right hip displaced femoral neck fracture] 06/05/2019 Patient had a wound culture that has resulted with results of Klebsiella pneumoniae and pseudomonas from fluid draining from the right hip. this is dated 06/25/19 He was admitted from [facility] Sunday 07/01 after findings of large abscess about the right hip from Stat CT scan obtained 07/01 with aspiration of right hip by IR on 07/02. On exam patient is A&O x 3 Appx 1cm dehiscence posterior third of wound. Incision continues with dark serosanguinous fluid GRAYSON drain in place - placed 07/02/19 and continues with output; Placed by IR, appx 5mL fluid able to be aspirated from fluid on 07/02 - concern for loculation versus ongoing fluid collection. No calf tenderness to palpation TROM brace locked extension RLE Hip abduction wedge between legs Neurovascualrly intact to b/l LE Discussed with Dr. Bhagat and Samantha Regan ANIMAL CARE SUPERVISOR with ID Will repeat CT scan to evaluate - noncontrast as patient is allergic to IV contrast dye NPO now ---- patient admits to eating popcorn this morning about 8am will make sure that anesthesia is aware for timing Continue with GRAYSON drain for present time Continue with locked extension TROM brace with no knee motion as well as hip abduction wedge at all times while laying/sleeping Plan for surgery today for irrigation and debridement - Informed consent reviewed and obtained after discussion of risks and benefits. Patient is deaf. Interpretive services were used during this visit to facilitate thorough examination and answering of patient's questions. All statements referenced as "discussed " or "informed" relate to discussion with patient via restaurant and bar manager. Objective Vital signs: Vital Signs Temp Pulse Resp BP Pulse Ox 07/04/19 07:15 98.8 F 105 16 101/67 98 07/04/19 04:07 36 98 07/04/19 01:04 99.3 F 108 19 134/92 99 08/05/19 00:28 23 97 07/03/19 16:38 97.9 F 110 16 135/89 98 07/03/19 11:33 98.3 F 109 16 137/86 98 Intake and Output 07/03/19 07/04/19 07/04/19 23:59 07:59 15:59 Intake Total 100 / 818 350 / 350 Output Total 875 / 1225 0 / 0 0 / 0 Balance -775 / -407 350 / 350 0 / 350 Intake: IV Fluids 100 / 700 350 / 350 Merrem 1,000 MG In 0.9 % Sodium 100 / 200 100 / 100 Chloride (Mini-Bag +) 100 ML @ 200 mls/hr IVPB Q8HR [facility] Rx#: [id number] Vancocin 1,500 MG In 0.9 % 250 / 250 Sodium Chloride 250 ML @ 166.67 mls/hr IVPB Q12H [facility] Rx#: [id number] Oral 0 / 118 0 / 0 Output: Urine 875 / 1225 0 / 0 Wound Drainage 0 / 0 Right Hip 0 / 0 Other: # Urine Diapers 1 # Bowel Movement Diapers 1 Blood Glucose* 190 125 - Labs CBC & BMP: 07/04/19 00:36 07/04/19 00:36 Labs: Abnormal lab results WBC 12.9 K/mcL (4.3-11.1) H 07/01/19 20:44 RBC 3.59 M/mcL (4.19-5.50) L 07/04/19 00:36 Hgb 10.0 g/dL (12.9-16.9) L 07/04/19 00:36 Hct 31.7 % (37.5-50.1) L 07/04/19 00:36 MCH 27.9 pg (28.0-33.3) L 07/04/19 00:36 MCHC 31.5 g/dL (31.6-35.5) L 07/04/19 00:36 Plt Count 436 K/mcL (140-400) H 07/01/19 20:44 MPV 9.0 fL (9.4-12.4) L 07/04/19 00:36 Neutrophils # 9.1 K/mcL (1.6-8.9) H 07/01/19 20:44 Anisocytosis 1+ (Not Present) A 07/01/19 20:44 Microcytosis Present (Not Present) A 07/01/19 20:44 ESR 44 mm/hr (0-10) H 07/01/19 19:08 Sodium 133 mEq/L (136-145) L 07/04/19 00:36 Carbon Dioxide 20 mEq/L (23-29) L 07/04/19 00:36 Glucose 136 mg/dL (70-105) H 07/04/19 00:36 POC Glucose 306 mg/dL (70-99) H 07/03/19 11:32 Calculated Osmolality 279 (280-300) L 07/04/19 00:36 C-Reactive Protein 154 mg/L (Less than 10) H 07/01/19 19:08 Vancomycin Trough 15 mcg/mL (5-10) H 07/04/19 00:36 Crossmatch See Detail 07/01/19 21:50 Consult Discharge Plan - Plan Referrals: Kristofer Peacock MD [Primary Care Provider] -
[2019-07-04] MEDS: *HR* HYDROcodone/Acet 5/325 mg TABLET PO PRN (12:41)
[2019-07-04] MEDS ORDERED: Ethanol\\Acetic Acid\\Na Ace\\Ben 1,000 ML IRRIG.SOLN IR ONE ×2 (15:18→15:19)
[2019-07-04] MEDS ORDERED: Acetaminophen IV 1,000 MG/100 ML INFUS..BTL ONE (15:19)
[2019-07-04] MEDS ORDERED: Famotidine 20 MG/2 ML VIAL ONE (15:20)
--- NOTE | 2019-07-04 16:30 | Event Note ---
Date of Encounter: 07/04/19 Time of Encounter: 16:28 (j) PATIENT TO HAVE ABSOLUTELY NO ANTICOAGULANTS AT THIS TIME SECONDARY TO HEMATOMA FINDING INTRAOP. FOOT PUMPS ONLY FOR VTE PROPHYLAXIS HEPARIN SQ DISCONTINUED
[2019-07-04] MEDS ORDERED: Ondansetron 4 MG/2 ML VIAL IVP ONE (16:35)
[2019-07-04] MEDS ORDERED: Morphine Sulfate 2 MG/ML SYRINGE IVP PRN (16:35)
[2019-07-04] MEDS ORDERED: *HR* OxyCODONE Immed Rel 5 MG TABLET PO PRN (16:35)
[2019-07-04] MEDS ORDERED: *HR* Promethazine 25 MG/ML VIAL IVP PRN ×2 (16:35→17:27)
--- NOTE | 2019-07-04 16:38 | Orthopedic Operative Note ---
Date of procedure: 07/04/19 Pre-op diagnosis: Infected right hematoma Post-op diagnosis: same Procedure: Procedure: Right hip irrigation debridement, revision of femoral component Estimated blood loss: 300 cc Hardware: Metal and polyethylene replacement. Bipolar head 50, neck +4 Operative procedure: The patient was brought to the operating room and placed on the operating room table. After general anesthesia was administered the patient was placed in the lateral decubitus position with the operative leg up. All pressure points were padded appropriately and the head was stabilized in the neutral position. The operative extremity was prepped and draped in the sterile surgical fashion patient received IV antibiotic prior to skin incision. A standard posterior approach is made to the operative hip, elipticizing the old incision. The incision was made through the skin and subcutaneous tissue hemostasis was obtained with Bovie cautery. Using careful sharp dissection the fascia was identified patient had a defect in the distal fascial repair, this communicated directly down to the hip, this had a significant hematoma. The hematoma was evacuated and the hip was irrigated with 1 L of pulse irrigation of an antibacterial solution, and 3 L of pulse irrigation normal saline. The hip was then dislocated the femoral head was removed with the bipolar component, this was changed to from a 0 neck to a +4 with the 50 bipolar prior to reduction, the acetabulum was irrigated with antibacterial solution followed by normal saline. The hip was then reduced and had excellent stability with forward flexion to 90 degrees adduction of 30 degrees and internal rotation of 60 degrees. The hip had no shuck. The hip sat for 1 minute with an antibacterial solution, it was then irrigated out with pulse irrigation of 1 L of a second antibacterial solution. It was th en irrigated out with 3 L of pulse irrigation of normal saline. Fascia was closed over a GRAYSON drain with a running #2 PDS suture. The deep tissue was irrigated and closed deep with #1 PDS suture superficially with 0 PDS suture and skin was closed with skin clive. The patient was placed in a sterile dressing and abduction pillow. The patient was extubated and transferred to the recovery room in stable condition. Anesthesia: GETA Surgeon: Blake Bhagat Was there an assistant store director present: Yes Assembler Bonding: Ana Rosa Hand Estimated blood loss (cc): 300 Condition: stable Disposition: PACU
--- NOTE | 2019-07-04 17:15 | Anesthesia Evaluation Post Op ---
Date of Encounter: 07/04/19 Time of Encounter: 17:15 - Vital Signs Vital Signs: Vital Signs/O2 Sat/Glucose, Most Current Temp Pulse Resp BP Pulse Ox 07/04/19 17:08 100.2 F H 105 20 118/70 92 07/04/19 16:58 109 18 128/75 95 07/04/19 16:48 103 22 111/67 100 07/04/19 16:38 98.9 F 102 18 94/58 99 - Lungs Lungs: Clear Ascult./Percussion - Airway Airway: Non-obstructed - Cardiovascular Regular Rate - Mental Status Mental Status: Alert & Oriented, Answers Appropriately - Pain Pain Scale: 1 - Nausea Vomiting Nausea Vomiting: Not Present - Hydration Hydration: Ice chips - Discharge PostOp Status: Transfer Patient to floor
[2019-07-04] MEDS ORDERED: Ondansetron 4 MG/2 ML VIAL IVP PRN (17:27)
[2019-07-04] MEDS ORDERED: MOM Conc 10 ML UD.LIQ PO PRN (17:27)
[2019-07-04] MEDS ORDERED: D5% in Water 1,000 ML IVC PRN (17:27)
[2019-07-04] MEDS ORDERED: Naloxone 0.4 MG/ML INJ IVP PRN ×2 (17:27)
[2019-07-04] MEDS ORDERED: Sennosides 8.6 MG TABLET PO PRN (17:27)
[2019-07-04] MEDS ORDERED: Dextrose Gel 15 GM/37.5 ML TUBE PO PRN ×2 (17:27)
[2019-07-04] MEDS ORDERED: Acetaminophen 325 MG TABLET PO PRN (17:27)
[2019-07-04] MEDS ORDERED: Temazepam 15 MG CAPSULE PO PRN (17:27)
[2019-07-04] MEDS ORDERED: *HR* Dextrose 50 % in Water (Syg) 50 ML SYRINGE IVP PRN (17:27)
[2019-07-04] MEDS ORDERED: *HR* HYDROcodone/Acet 5/325 mg TABLET PO PRN (17:27)
--- NOTE | 2019-07-04 17:58 | Internal Med Progress Note ---
Hospitalist Progress Note - Encounter Date of Encounter: 07/04/19 Time of Encounter: 11:00 - Subjective Interval History: No major events overnight. Patient was seen this a.m, communicated through video sweet dough mixer. He denied fever, chills or night sweats. He has no nausea, vomiting or abdominal pain. Patient denied chest pain, shortness of breath or palpitation. - Exam Vitals: Temp Pulse Resp BP Pulse Ox 98.6 F 104 18 124/74 95 07/04/19 17:30 07/04/19 17:30 07/04/19 17:30 07/04/19 17:30 07/04/19 17:30 Exam: General: Patient is alert, no acute distress, ENT: Patient is deaf at baseline. Communicates with writing and through sign language Respiratory: Good respiratory effort. Normal breath sounds. No wheezing or crackles. Cardiovascular: Regular rate and rhythm. s1 and s2 normal No clicks, rubs, gallops, or murmurs. No pedal edema Abdomen: Abdomen is soft, nontender. Bowel sounds are present Musculoskeletal: Right hip drain in place draining bloody fluid. Skin: warm, dry, intact. Neuro: Alert oriented x 3 normal cranial nerves, no focal deficits - Assessment and Plan (1) Septic arthritis Current Visit: Yes Status: Acute (2) Hypertension Current Visit: No Status: Chronic (3) DM type 2 (diabetes mellitus, type 2) Current Visit: No Status: Chronic (4) Hyperlipidemia Current Visit: No Status: Chronic (5) Leukocytosis Current Visit: Yes Status: Resolved (6) DVT prophylaxis Current Visit: Yes Status: Acute (7) Bipolar 1 disorder Current Visit: Yes Status: Chronic (8) Acute blood loss anemia Current Visit: Yes Status: Resolved (9) GERD (gastroesophageal reflux disease) Current Visit: No Status: Acute (10) Abscess of right hip Current Visit: Yes Status: Acute - Summary of Assessment and Plan Summary of Assessment and Plan: Mr. Prince is a 43 year old male with above medical history significant for diabetes mellitus, presented from the [facility] swing bed for drainage of right hip abscess. Patient had right hip arthroplasty, followed by a fall, with resultant periprostatic fracture of the femur, then he underwent right revision femoral hip component surgery on 06/17/2019, and then he was discharged to swing [facility] for PT/OT. He initially made good progress but after a few days reported worsening pain in the right hip. His performance in therapy declined secondary to the pain. There was noted to be green drainage from the superior portion of the right hip surgical incision. Wound culture returned showing Pseudomonas and Klebsiella MDRO. [facility] June 29 when final c/s report was available. Right hip CT scan was ordered on July 01 which showed findings concerning for abscess with intra-articular extension with resultant septic arthritis. Patient was then sent to [facility] for IR to perform aspiration. Right hip Septic arthritis: s/p drainage done by IR. Elevated ESR and CRP. Currently on IV antibiotics meropenem and renally dosed vancomycin (trough is 15). These done prior cultures, patient grew Pseudomonas and Klebsiella both of which were sensitive to carbapenems now growing staph epidermidis. He is afebrile, hemodynamically stable, leukocytosis resolved. Orthopedic surgery is consulted, today for OR. Infectious diseases media consultant. Acute anemia: Concern for acute blood loss anemia from his fall and hip hematoma. Hemoglobin at presentation was 5.9, patient received 3 units of PRBCs with good response of his hemoglobin today 10.1. We will check stool for occult blood. Patient is on PPI. Was on Xarelto for DVT ppx post surgery. Now on hold. CHeck CBC tomorrow Hyponatremia: Check urine sodium and urine osmolarity. Patient on multiple psychiatric medication which could trigger SIADH. Hold Lasix as the patient is euvolemic. Check BMP tomorrow Diabetes mellitus type 2: Controlled, Monitor blood sugars before meals and at bedtime. Continue Levemir 30 units twice a day and sliding scale short-acting insulin.. Bipolar 1 disorder: Continue Geodon, Seroquel and Lexapro. Essential hypertension: Well controlled. Continue Cardizem, losartan. High risk for complications. DVT ppx: SCD, no AC as per Orthopedic surgery recommendation given his finding of right hip hematoma. I reviewed independently all laboratory workup, pertinent images including x- rays and CT scans. I also reviewed independently and EKGs and my findings are in the body of my assessment and plan. I ordered the laboratory workup and images myself. I discussed finding with patient's, their families, RN's and consultants involved in the care of the patient. - Time Spent with Patient Total time spent is greater than 50% in coordination of care (as documented) at patient's floor/unit and/or counseling patient: Plan of Care Discussed with: patient Internal Medicine: Result - Labs CBC & Chem 7: 07/04/19 00:36 07/04/19 00:36 Labs: Short CBC 07/04/19 Range/Units 00:36 WBC 10.7 (4.3-11.1) K/mcL Hgb 10.0 L (12.9-16.9) g/dL Hct 31.7 L (37.5-50.1) % Plt Count 378 (140-400) K/mcL Neutrophils # 7.3 (1.6-8.9) K/mcL BMP 07/04/19 00:36 Sodium 133 L Potassium 3.8 Chloride 103 Carbon Dioxide 20 L BUN 14 Creatinine 0.76 Glucose 136 H Calcium 9.2 - Impressions Impressions Drainage Catheter Insertion 07/02/19 00:00 IMPRESSION: Successful ultrasound guided placement of right hip abscess drainage catheter. There is a suggestion of an infected hematoma based on the appearance of the fluid aspirated. D/ / 07/02/2019 12:12:27 Fern Brasher MD / [facility] Interpreting Provider: Fern Brasher MD Hip X-Ray 07/04/19 01:00 IMPRESSION: Postsurgical changes likely from revision of a right hip hemiarthroplasty. Unchanged displaced proximal femoral fracture fragment. D/ / 07/04/2019 17:31:41 Sincere Puente MD / [facility] Interpreting Provider: Sincere Puente MD Hip CT 07/04/19 09:46 IMPRESSION: 1. Findings compatible with an abscess lateral to the right hip at the level of the greater/lesser trochanters. 2. Pigtail catheter seen in the right gluteal musculature above and posterior to the abscess. 3. Bipolar right hip hemiarthroplasty noted. Gas bubbles are seen in the joint space around the neck of the femoral head prosthesis. 4. Fracture of the proximal femur as seen on the previous plain films, unchanged. D/ / Axel Matute MD / Axel Matute MD Interpreting Provider: Axel Matute MD Consult Discharge Plan - Plan Referrals: Kristofer Peacock MD [Primary Care Provider] - (1) Septic arthritis Qualifiers: Septic arthritis location: hip Septic arthritis organism: due to other bacteria Laterality: right Qualified Code(s): M00.851 - Arthritis due to other bacteria, right hip (2) Hypertension Qualifiers: Hypertension type: essential hypertension Qualified Code(s): I10 - Essential (primary) hypertension (3) DM type 2 (diabetes mellitus, type 2) Qualifiers: Diabetes mellitus long term care administrator insulin use: with long term care administrator use Diabetes mellitus complication status: without complication Qualified Code(s): E11.9 - Type 2 diabetes mellitus without complications; Z79.4 - skilled nursing (current) use of insulin (4) Hyperlipidemia Qualifiers: Hyperlipidemia type: unspecified Qualified Code(s): E78.5 - Hyperlipidemia, unspecified (5) Leukocytosis Qualifiers: Leukocytosis type: unspecified Qualified Code(s): D72.829 - Elevated white blood cell count, unspecified (9) GERD (gastroesophageal reflux disease) Qualifiers: Esophagitis presence: without esophagitis Qualified Code(s): K21.9 - Gastro-e sophageal reflux disease without esophagitis
[2019-07-04] MEDS: *HR* OxyCODONE Immed Rel 5 MG TABLET PO PRN (18:15)
[2019-07-04] MEDS: Ringers Solution, Lactated 1,000 ML IVC SCH (18:15)
[2019-07-04] MEDS: Ascorbic Acid 500 MG TABLET PO SCH (18:16)
[2019-07-04] MEDS ORDERED: Latanoprost 2.5 ML BOTTLE BOTH EYES SCH (21:00)
[2019-07-04] MEDS: METHAZOLAMIDE 50 MG PO SCH (21:25)
[2019-07-04 22:11] LABS: Sodium, Urine 77.4 mEq/L
[2019-07-05] MEDS: Meropenem 1,000 MG in 0.9 % Sodium Chloride Mini Bag 100 ML IVPB SCH ×4 (00:28→23:47)
[2019-07-05] MEDS: Ketoconazole Shampoo 120 ML BOTTLE TP SCH (05:23)
[2019-07-05 05:38] LABS: Hematocrit 29.3 % (37.5-50.1); Mean Corpuscular HGB Conc 30.7 g/dL (31.6-35.5); Mean Corpuscular Hemoglobin 27.1 pg (28.0-33.3); Mean Corpuscular Volume 88.3 fL (83.0-100.0); Mean Platelet Volume 9.2 fL (9.4-12.4); Platelet Count 332 K/mcL (140-400); Red Blood Count 3.32 M/mcL (4.19-5.50); Red Cell Distribution Width 13.9 % (11.5-14.5); White Blood Count 15.4 K/mcL (4.3-11.1)
[2019-07-05] MEDS: Pantoprazole 40 MG VIAL IVP SCH ×2 (05:49→17:46)
[2019-07-05 05:54] LABS: BUN/Creatinine Ratio 20 (6-26); Blood Urea Nitrogen 15 mg/dL (6-20); Calcium 8.9 mg/dL (8.6-10.3); Carbon Dioxide 21 mEq/L (23-29); Chloride 101 mEq/L (98-107); Glucose 265 mg/dL (70-105); Osmolality,Calculated 282 (280-300); Potassium 4.3 mEq/L (3.5-5.1); Sodium 131 mEq/L (136-145); eGFR For African Americans > 60 (> 60); eGFR For Non-African Americans > 60 (> 60)
--- NOTE | 2019-07-05 06:42 | Orthopedics Progress Note ---
Date of Encounter: 07/05/19 Time of Encounter: 06:42 Subjective Principal diagnosis: right hip infection Interval history: Patient was seen this morning doing well without complaints. Afebrile vital signs stable. Operative extremity: Neurovascularly intact Dressing clean dry and intact Calves nontender Assessment and plan: Continue with postoperative care Hemoglobin 9.0 Objective Vital signs: Vital Signs Temp Pulse Pulse Resp BP Pulse Ox 07/05/19 03:19 99.0 F 109 16 130/85 98 07/05/19 01:07 24 95 07/04/19 22:39 97.9 F 105 16 127/80 95 07/04/19 20:30 98.1 F 100 16 132/88 97 07/04/19 19:30 98.0 F 109 17 144/89 97 07/04/19 18:38 104 07/04/19 18:30 98.0 F 108 18 145/82 96 07/04/19 18:04 98.8 F 109 18 137/75 94 07/04/19 17:30 98.6 F 104 100 18 124/74 95 07/04/19 17:18 100.2 F H 104 18 120/81 20 07/04/19 17:08 100.2 F H 105 20 118/70 92 07/04/19 16:58 109 18 128/75 95 07/04/19 16:48 103 22 111/67 100 07/04/19 16:38 98.9 F 102 18 94/58 99 07/04/19 12:07 98.3 F 109 18 121/79 96 07/04/19 07:15 98.8 F 105 16 101/67 98 Intake and Output 07/04/19 07/04/19 07/05/19 15:59 23:59 07:59 Intake Total 450 / 920 120 / 920 350 / 350 Output Total 15 / 1115 1100 / 1115 Balance 435 / -195 -980 / -195 350 / 350 Intake: IV Fluids 450 / 800 350 / 350 Merrem 1,000 MG In 0.9 % Sodium 200 / 300 100 / 100 Chloride (Mini-Bag +) 100 ML @ 200 mls/hr IVPB Q8HR GABE Rx#: [id number] Vancocin 1,500 MG In 0.9 % 250 / 500 250 / 250 Sodium Chloride 250 ML @ 166.67 mls/hr IVPB Q12H GABE Rx#: [id number] Oral 120 / 120 Output: Urine 0 / 700 700 / 700 Estimated Blood Loss 300 / 300 Wound Drainage 15 115 100 / 115 Right Hip 15 60 / 75 Other: Blood Glucose* 131 435 - Labs CBC & BMP: 07/05/19 04:43 07/05/19 04:43 Labs: Abnormal lab results WBC 15.4 K/mcL (4.3-11.1) H 07/05/19 04:43 RBC 3.32 M/mcL (4.19-5.50) L 07/05/19 04:43 Hgb 9.0 g/dL (12.9-16.9) L 07/05/19 04:43 Hct 29.3 % (37.5-50.1) L 07/05/19 04:43 MCH 27.1 pg (28.0-33.3) L 07/05/19 04:43 MCHC 30.7 g/dL (31.6-35.5) L 07/05/19 04:43 Plt Count 436 K/mcL (140-400) H 07/01/19 20:44 MPV 9.2 fL (9.4-12.4) L 07/05/19 04:43 Neutrophils # 9.1 K/mcL (1.6-8.9) H 07/01/19 20:44 Anisocytosis 1+ (Not Present) A 07/01/19 20:44 Microcytosis Present (Not Present) A 07/01/19 20:44 ESR 44 mm/hr (0-10) H 07/01/19 19:08 Sodium 131 mEq/L (136-145) L 07/05/19 04:43 Carbon Dioxide 21 mEq/L (23-29) L 07/05/19 04:43 Glucose 265 mg/dL (70-105) H 07/05/19 04:43 POC Glucose 190 mg/dL (70-99) H 07/03/19 21:04 Calculated Osmolality 279 (280-300) L 07/04/19 00:36 C-Reactive Protein 154 mg/L (Less than 10) H 07/01/19 19:08 Vancomycin Trough 15 mcg/mL (5-10) H 07/04/19 00:36 Crossmatch See Detail 07/01/19 21:50 Consult Discharge Plan - Plan Referrals: Kristofer Peacock MD [Primary Care Provider] -
[2019-07-05] MEDS: Ringers Solution, Lactated 1,000 ML IVC SCH ×2 (08:12→23:43)
[2019-07-05] MEDS: Diltiazem CD (24hr) 180 MG CAPSULE PO SCH (08:18)
[2019-07-05] MEDS: Ascorbic Acid 500 MG TABLET PO SCH ×2 (08:18→17:08)
[2019-07-05] MEDS: clonazePAM 1 MG TABLET PO SCH ×4 (08:19→20:26)
[2019-07-05] MEDS: Insulin DETEMIR 100 UNIT/ML X5UNITS SQ SCH ×2 (08:19→20:29)
[2019-07-05] MEDS: Ziprasidone 80 MG CAPSULE PO SCH ×2 (08:19→20:28)
[2019-07-05] MEDS: METHAZOLAMIDE 50 MG PO SCH ×2 (08:20→20:30)
[2019-07-05] MEDS: Magnesium Oxide 400 MG TABLET PO SCH (08:20)
[2019-07-05] MEDS: *HR* OxyCODONE Immed Rel 5 MG TABLET PO PRN ×2 (08:21→14:19)
[2019-07-05] MEDS: Prenatal Vit/FA 1 EACH TABLET PO SCH (08:21)
[2019-07-05] MEDS: Insulin LISPRO 300 UNITS/3 ML VIAL SQ SCH ×3 (08:24→17:06)
[2019-07-05] MEDS ORDERED: Multivit/Ca/Min/Fe/FA 1 TAB TABLET PO SCH (09:00)
[2019-07-05] MEDS: *HR* HYDROcodone/Acet 5/325 mg TABLET PO SCH ×3 (12:35→20:26)
--- NOTE | 2019-07-05 15:17 | Infectious Disease Progress No ---
ID Progress Note Date of Encounter: 07/05/19 Time of Encounter: 15:14 - Subjective Subjective: Patient seen and examined with the assistance of the electronic aircraft systems technician. No acute events noted overnight. Patient states overall he feels well. Denies fevers, chills, rigors. Denies chest pain, shortness of breath, or cough. Denies nausea, vomiting, diarrhea, or constipation. States has not had a bowel movement admission. Denies abdominal pain or urinary complaints. Denies oral thrush or skin rashes. Complains of mild pain in the right hip at the surgical site. States his appetite is okay. - Objective CBC & Chem 7: 07/05/19 04:43 07/05/19 04:43 - Exam Vitals: Temp Pulse Resp BP Pulse Ox 98.2 F 104 15 144/90 96 07/05/19 14:50 07/05/19 14:50 07/05/19 14:50 07/05/19 14:50 07/05/19 14:50 Exam: Head: Atraumatic, normal inspection, normocephalic. Eye: EOMI, PERRLA, no scleral icterus noted. ENT: Mucous membranes moist. No odontogenic infection noted. Neck: Normal inspection, no meningismus. Respiratory: Clear to auscultation. No rales, respiratory distress, rhonchi, or wheezes noted. Cardiovascular: Regular rate and rhythm, S1 and S2 audible. No murmurs, rubs, or gallops. GI: Soft, distended, normal bowel sounds. Nontender. Extremities: No joint swelling, pedal edema, or tenderness noted. Right lateral hip surgical incision with dressing intact. GRAYSON drain with sanguinous drainage. No tenderness or fluctuance noted. Neurological: Drowsy, but awakens easily to verbal stimuli. Oriented 3, no focal deficits. Psychiatric: normal affect, normal mood. Skin: Dry, intact, warm. Normal color. No rashes. - Assessment and Plan (1) Sepsis Current Visit: Yes Status: Acute The patient had 2 sepsis criteria including tachycardia and leukocytosis. Likely secondary to right hip abscess. Improved. MAXIMUM TEMPERATURE 100.2 overnight. He redevelops leukocytosis today, likely reactive from surgery. Continues to have tachycardia. Blood cultures drawn 07/01/19 are no growth to date 2 sets. Qualifiers: Sepsis type: sepsis due to unspecified organism Sepsis acute organ dysfunction status: without acute organ dysfunction Qualified Code(s): A41.9 - Sepsis, unspecified organism SNOMED Code(s): 17539697 (2) Abscess of right hip Current Visit: Yes Status: Acute Location: Right hip. Causative organism: Pseudomonas, [id number] Klebsiella pneumoniae, and GPC (final ID and sensitivity pending). Etiology: Likely secondary to recent surgical procedures. CT of the head showed a focal fluid collection with internal gas along the lateral aspect proximal femur which appears to extend intra-articular with her right hip joint effusion and some foci of intra-articular gas. Findings are highly concerning for abscess with intra-articular extension and resultant septic arthritis. Overlying and surrounding cellulitis noted. There was also an intramuscular hematoma to the right gluteus inder muscle laterally towards its proximal aspect. No associated soft tissue gas and focus is felt to be unrelated to the aforementioned infectious changes. Status post CT-guided drain placement 07/02/19 by interventional radiology. 5 mL of bloody fluid aspirated. Culture is positive for oxacillin resistant staph epi. Repeat CT of the right hip 07/04/19 showed findings compatible with an abscess lateral to the right hip at the level of the greater/lesser trochanters, pigtail catheter seen in the right gluteal musculature above the posterior to the absc ess. Bipolar right hemiarthroplasty noted with gas bubbles seen in the joint space around the neck of the femoral head prosthesis. Fracture of the proximal femur as seen on previous plain films, unchanged. Orthopedics consulted. Status post right hip irrigation and debridement, revision of femoral component 07/04/[address] Bhagat. Operative note reviewed. Large hematoma noted. Cultures and pathology are pending. Currently on vancomycin and meropenem. SNOMED Code(s): 679894 (3) Anemia Current Visit: No Status: Acute Etiology: Likely secondary to right hip hematoma. Hemoglobin 9 today. Further workup and management per the primary team. Qualifiers: Anemia type: unspecified type Qualified Code(s): D64.9 - Anemia, unspecified SNOMED Code(s): 354534286 (4) Fracture of right hip Current Visit: No Status: Acute Status post fall in April 2019. Status post right total hip arthroplasty 06/05/19. Status post right revision femoral head component 06/17/19. Status post right revision of femoral head component 07/04/19. Qualifiers: Encounter type: initial encounter Fracture type: closed Qualified Code(s): S72.001A - Fracture of unspecified part of neck of right femur, initial encounter for closed fracture SNOMED Code(s): 867166825 (5) GERD (gastroesophageal reflux disease) Current Visit: No Status: Acute Qualifiers: Esophagitis presence: without esophagitis Qualified Code(s): K21.9 - Gastro-esophageal reflux disease without esophagitis SNOMED Code(s): 795122371 (6) Gout Current Visit: No Status: Acute Qualifiers: Gout site: unspecified site Gout etiology: unspecified cause Chronicity: chronic Presence of tophus: without tophus Qualified Code(s): M1A.9XX0 - Chronic gout, unspecified, without tophus (tophi) SNOMED Code(s): 97024955 (7) Bipolar 1 disorder Current Visit: Yes Status: Chronic SNOMED Code(s): 081485743 (8) DM type 2 (diabetes mellitus, type 2) Current Visit: No Status: Chronic Recommend aggressive glucose monitoring and control to promote wound healing and prevent reinfection. Management per the primary team. Qualifiers: Diabetes mellitus laborer marine terminal insulin use: with laborer marine terminal use Diabetes mellit complication status: without complication Qualified Code(s): E11.9 - Type 2 diabetes mellitus without complications; Z79.4 - terminal gauger (current) use of insulin SNOMED Code(s): 44620312 (9) Hyperlipidemia Current Visit: No Status: Chronic Qualifiers: Hyperlipidemia type: unspecified Qualified Code(s): E78.5 - Hyperlipidemia, unspecified SNOMED Code(s): 95527088 (10) Hypertension Current Visit: No Status: Chronic Qualifiers: Hypertension type: essential hypertension Qualified Code(s): I10 - Essential (primary) hypertension SNOMED Code(s): 93496956 (11) Seizure disorder Current Visit: No Status: Chronic SNOMED Code(s): 899491717 - Recommendations Recommendations: Await blood cultures to finalize. Await intraoperative cultures to finalize. Wound care, drain management, and activity per the orthopedics team. Continue Vancomycin IV. Pharmacy to dose. Goal trough ~15. Continue Meropenem 1 gram IV Q8H. Duration of treatment depends on the clinical picture, but likely 6 weeks postop. Monitor renal function and for drug toxicity and dose-adjust antibiotics. Contact precautions per hospital policy. hr shared services consultant to assist with discharge planning. Consult Discharge Plan - Plan Referrals: Kristofer Peacock MD [Primary Care Provider] -
--- NOTE | 2019-07-05 18:27 | Internal Med Progress Note ---
Hospitalist Progress Note - Encounter Date of Encounter: 07/05/19 Time of Encounter: 10:00 - Subjective Interval History: Patient was seen this morning. He Is complaining about right hip pain after the surgery. Patient denied chest pain or shortness of breath. He has no abdominal pain, nausea or vomiting. - Exam Vitals: Temp Pulse Resp BP Pulse Ox 98.2 F 104 15 144/90 96 07/05/19 14:50 07/05/19 14:50 07/05/19 14:50 07/05/19 14:50 07/05/19 14:50 Exam: General: Patient is alert, no acute distress, ENT: Patient is deaf at baseline. Communicates with writing and through sign language Respiratory: Good respiratory effort. Normal breath sounds. No wheezing or crackles. Cardiovascular: Regular rate and rhythm. s1 and s2 normal No clicks, rubs, gallops, or murmurs. No pedal edema Abdomen: Abdomen is soft, nontender. Bowel sounds are present Musculoskeletal: Right hip drain in place draining bloody fluid. Skin: warm, dry, intact. Neuro: Alert oriented x 3 normal cranial nerves, no focal deficits - Assessment and Plan (1) Septic arthritis Current Visit: Yes Status: Acute (2) Hypertension Current Visit: No Status: Chronic (3) DM type 2 (diabetes mellitus, type 2) Current Visit: No Status: Chronic (4) Hyperlipidemia Current Visit: No Status: Chronic (5) Leukocytosis Current Visit: Yes Status: Resolved (6) DVT prophylaxis Current Visit: Yes Status: Acute (7) Bipolar 1 disorder Current Visit: Yes Status: Chronic (8) Acute blood loss anemia Current Visit: Yes Status: Resolved (9) GERD (gastroesophageal reflux disease) Current Visit: No Status: Acute (10) Abscess of right hip Current Visit: Yes Status: Acute - Summary of Assessment and Plan Summary of Assessment and Plan: Mr. Prince is a 43 year old male with above medical history significant for diabetes mellitus, presented from the [facility] swing bed for drainage of right hip abscess. Patient had right hip arthroplasty, followed by a fall, with resultant periprostatic fracture of the femur, then he underwent right revision femoral hip component surgery on 06/17/2019, and then he was discharged to swing [facility] for PT/OT. He initially made good progress but after a few days reported worsening pain in the right hip. His performance in therapy declined secondary to the pain. There was noted to be green drainage from the superior portion of the right hip surgical incision. Wound culture returned showing Pseudomonas and Klebsiella MDRO. He was [facility] June [facility] when final c/s report was available. Right hip CT scan was ordered on July 01 which showed findings concerning for abscess with intra-articular extension with resultant septic arthritis. Patient was then sent to [facility] for IR to perform aspiration. Right hip Septic arthritis: s/p drainage done by IR. Elevated ESR and CRP. ID consulted, Currently on IV antibiotics meropenem and renally dosed vancomycin (trough is 15). prior cultures grew Pseudomonas and Klebsiella both of which were sensitive to carbapenems now growing staph epidermidis. He is afebrile, hemodynamically stable, leukocytosis trended up today likely from surgery yesterday. Orthopedic surgery is consulted, yesterday went for hematoma evacuation and similar vision. Acute anemia: Concern for acute blood loss anemia from his fall and hip hematoma. Hemoglobin at presentation was 5.9, patient received 3 units of PRBCs with good response of his hemoglobin today 10.1. Patient is on PPI. Was on Xarelto for DVT ppx post surgery. Now on hold. Hg is stable. Hyponatremia: Suspect 2/2 hyperglycemia Giving his normal osmolarity with hyperglycemia. Check BMP tomorrow Diabetes mellitus type 2: Controlled, Monitor blood sugars before meals and at bedtime. Continue Levemir 30 units twice a day, will add 6 units of lispro and continue sliding scale short-acting insulin.. Bipolar 1 disorder: Continue Geodon, Seroquel and Lexapro. Essential hypertension: Well controlled. Continue Cardizem, losartan. High risk for complications. DVT ppx: SCD, no AC as per Orthopedic surgery recommendation given his finding of right hip hematoma. I reviewed independently all laboratory workup, pertinent images including x- rays and CT scans. I also reviewed independently and EKGs and my findings are in the body of my assessment and plan. I ordered the laboratory workup and images myself. I discussed finding with patient's, their families, RN's and consultants involved in the care of the patient. - Time Spent with Patient Total time spent is greater than 50% in coordination of care (as documented) at patient's floor/unit and/or counseling patient: Plan of Care Discussed with: patient Internal Medicine: Result - Labs CBC & Chem 7: 07/05/19 04:43 07/05/19 04:43 Labs: Short CBC 07/05/19 Range/Units 04:43 WBC 15.4 H (4.3-11.1) K/mcL Hgb 9.0 L (12.9-16.9) g/dL Hct 29.3 L (37.5-50.1) % Plt Count 332 (140-400) K/mcL BMP 07/05/19 04:43 Sodium 131 L Potassium 4.3 Chloride 101 Carbon Dioxide 21 L BUN 15 Creatinine 0.75 Glucose 265 H Calcium 8.9 Consult Discharge Plan - Plan Referrals: Kristofer Peacock MD [Primary Care Provider] - (1) Septic arthritis Qualifiers: Septic arthritis location: hip Septic arthritis organism: due to other bacteria Laterality: right Qualified Code(s): M00.851 - Arthritis due to other bacteria, right hip (2) Hypertension Qualifiers: Hypertension type: essential hypertension Qualified Code(s): I10 - Essential (primary) hypertension (3) DM type 2 (diabetes mellitus, type 2) Qualifiers: Diabetes mellitus terminal gauger supervisor insulin use: with terminal gauger supervisor use Diabetes mellitus complication status: without complication Qualified Code(s): E11.9 - Type 2 karina betes mellitus without complications; Z79.4 - snf (current) use of insulin (4) Hyperlipidemia Qualifiers: Hyperlipidemia type: unspecified Qualified Code(s): E78.5 - Hyperlipidemia, unspecified (5) Leukocytosis Qualifiers: Leukocytosis type: unspecified Qualified Code(s): D72.829 - Elevated white blood cell count, unspecified (9) GERD (gastroesophageal reflux disease) Qualifiers: Esophagitis presence: without esophagitis Qualified Code(s): K21.9 - Gastro- esophageal reflux disease without esophagitis
[2019-07-06] MEDS: Ringers Solution, Lactated 1,000 ML IVC SCH ×2 (02:24→13:45)
[2019-07-06] MEDS: *HR* HYDROcodone/Acet 5/325 mg TABLET PO SCH ×6 (03:54→20:58)
[2019-07-06] MEDS: Pantoprazole 40 MG VIAL IVP SCH ×2 (05:40→17:04)
[2019-07-06 07:46] LABS: Hematocrit 29.1 % (37.5-50.1); Hemoglobin 8.8 g/dL (12.9-16.9); Mean Corpuscular HGB Conc 30.2 g/dL (31.6-35.5); Mean Corpuscular Volume 89.3 fL (83.0-100.0); Mean Platelet Volume 9.2 fL (9.4-12.4); Platelet Count 322 K/mcL (140-400); Red Blood Count 3.26 M/mcL (4.19-5.50); White Blood Count 12.9 K/mcL (4.3-11.1)
[2019-07-06 07:59] LABS: BUN/Creatinine Ratio 17 (6-26); Blood Urea Nitrogen 12 mg/dL (6-20); Calcium 9.1 mg/dL (8.6-10.3); Carbon Dioxide 23 mEq/L (23-29); Chloride 104 mEq/L (98-107); Glucose 189 mg/dL (70-105); Osmolality,Calculated 277 (280-300); Potassium 3.8 mEq/L (3.5-5.1); Sodium 131 mEq/L (136-145); eGFR For African Americans > 60 (> 60); eGFR For Non-African Americans > 60 (> 60)
--- NOTE | 2019-07-06 08:28 | Orthopedics Progress Note ---
Date of Encounter: 07/06/19 Time of Encounter: 08:27 Subjective Principal diagnosis: right hip infection Interval history: Patient was seen this morning doing well without complaints. Afebrile vital signs stable. Operative extremity: Neurovascularly intact Dressing clean dry and intact Calves nontender Assessment and plan: Continue with postoperative care Intraoperative cultures show no growth to date. Objective Vital signs: Vital Signs Temp Pulse Resp BP Pulse Ox 07/06/19 06:36 97.6 F 107 16 125/88 97 07/06/19 03:00 97.6 F 102 15 131/79 97 07/05/19 19:05 98.2 F 105 16 118/73 96 07/05/19 14:50 98.2 F 104 15 144/90 96 07/05/19 12:25 97.8 F 110 15 142/86 98 Intake and Output 07/05/19 07/06/19 07/06/19 23:59 07:59 15:59 Intake Total 540 / 2560 700 / 700 Output Total 750 / 1550 1140 / 1140 Balance -210 / 1010 -440 / -440 Intake: IV Fluids 300 / 2200 700 / 700 Lactated Ringers 1,000 ML @ 75 200 / 1400 600 / 600 mls/hr IVC .[id number] GABE Rx#: [id number] Merrem 1,000 MG In 0.9 % Sodium 100 / 300 100 / 100 Chloride (Mini-Bag +) 100 ML @ 200 mls/hr IVPB Q8HR GABE Rx#: [id number] Oral 240 / 360 0 / 0 Output: Urine 750 / 1550 1100 / 1100 Wound Drainage 0 / 0 40 / 40 Right Hip 0 / 0 40 / 40 Other: Meal Dinner Percent of Meal Consumed 100% # Voids 1 Weight 107.5 kg Blood Glucose* 281 172 Patient Weight 07/06/19 23:59 Weight 107.5 kg - Labs CBC & BMP: 07/06/19 07:11 07/06/19 07:11 Labs: Abnormal lab results WBC 12.9 K/mcL (4.3-11.1) H 07/06/19 07:11 RBC 3.26 M/mcL (4.19-5.50) L 07/06/19 07:11 Hgb 8.8 g/dL (12.9-16.9) L 07/06/19 07:11 Hct 29.1 % (37.5-50.1) L 07/06/19 07:11 MCH 27.0 pg (28.0-33.3) L 07/06/19 07:11 MCHC 30.2 g/dL (31.6-35.5) L 07/06/19 07:11 Plt Count 436 K/mcL (140-400) H 07/01/19 20:44 MPV 9.2 fL (9.4-12.4) L 07/06/19 07:11 Neutrophils # 9.1 K/mcL (1.6-8.9) H 07/01/19 20:44 Anisocytosis 1+ (Not Present) A 07/01/19 20:44 Microcytosis Present (Not Present) A 07/01/19 20:44 ESR 44 mm/hr (0-10) H 07/01/19 19:08 Sodium 131 mEq/L (136-145) L 07/06/19 07:11 Carbon Dioxide 21 mEq/L (23-29) L 07/05/19 04:43 Creatinine 0.69 mg/dL (0.70-1.30) L 07/06/19 07:11 Glucose 189 mg/dL (70-105) H 07/06/19 07:11 POC Glucose 172 mg/dL (70-99) H 07/06/19 07:24 Calculated Osmolality 277 (280-300) L 07/06/19 07:11 C-Reactive Protein 154 mg/L (Less than 10) H 07/01/19 19:08 Vancomycin Trough 15 mcg/mL (5-10) H 07/04/19 00:36 Crossmatch See Detail 07/01/19 21:50 Consult Discharge Plan - Plan Referrals: Kristofer Peacock MD [Primary Care Provider] -
[2019-07-06] MEDS: Insulin LISPRO 300 UNITS/3 ML VIAL SQ SCH ×6 (08:37→17:03)
[2019-07-06] MEDS: Diltiazem CD (24hr) 180 MG CAPSULE PO SCH (08:38)
[2019-07-06] MEDS: METHAZOLAMIDE 50 MG PO SCH ×2 (08:38→21:01)
[2019-07-06] MEDS: Ascorbic Acid 500 MG TABLET PO SCH ×2 (08:38→17:02)
[2019-07-06] MEDS: Prenatal Vit/FA 1 EACH TABLET PO SCH (08:39)
[2019-07-06] MEDS: clonazePAM 1 MG TABLET PO SCH ×4 (08:39→20:59)
[2019-07-06] MEDS: Magnesium Oxide 400 MG TABLET PO SCH (08:39)
[2019-07-06] MEDS: Ziprasidone 80 MG CAPSULE PO SCH ×2 (08:40→20:58)
[2019-07-06] MEDS: Insulin DETEMIR 100 UNIT/ML X5UNITS SQ SCH ×2 (08:40→20:59)
[2019-07-06] MEDS: Meropenem 1,000 MG in 0.9 % Sodium Chloride Mini Bag 100 ML IVPB SCH ×2 (12:00→15:52)
--- NOTE | 2019-07-06 15:57 | Infectious Disease Progress No ---
ID Progress Note Date of Encounter: 07/06/19 Time of Encounter: 15:55 - Subjective Subjective: Patient seen and examined with the assistance of the electronic publishing systems analyst. No acute events noted overnight. Patient states overall he feels well. Denies fevers, chills, rigors. Denies chest pain, shortness of breath, or cough. Denies nausea, vomiting, diarrhea, or constipation. Denies abdominal pain or urinary complaints. Denies oral thrush or skin rashes. Complains of mild pain in the right hip at the surgical site. States his appetite is okay. - Objective CBC & Chem 7: 07/06/19 07:11 07/06/19 07:11 - Exam Vitals: Temp Pulse Resp BP Pulse Ox 98.0 F 116 17 123/77 97 07/06/19 15:00 07/06/19 15:00 07/06/19 15:00 07/06/19 15:00 07/06/19 15:00 Exam: Head: Atraumatic, normal inspection, normocephalic. Eye: EOMI, PERRLA, no scleral icterus noted. ENT: Mucous membranes moist. No odontogenic infection noted. Neck: Normal inspection, no meningismus. Respiratory: Clear to auscultation. No rales, respiratory distress, rhonchi, or wheezes noted. Cardiovascular: Regular rate and rhythm, S1 and S2 audible. No murmurs, rubs, or gallops. GI: Soft, distended, normal bowel sounds. Nontender. Extremities: No joint swelling, pedal edema, or tenderness noted. Right lateral hip surgical incision with dressing intact. GRAYSON drain with sanguinous drainage. No tenderness or fluctuance noted. Neurological: Awake, alert, oriented 3, no focal deficits. Psychiatric: normal affect, normal mood. Skin: Dry, intact, warm. Normal color. No rashes. - Assessment and Plan (1) Sepsis Current Visit: Yes Status: Acute The patient had 2 sepsis criteria including tachycardia and leukocytosis. Likely secondary to right hip abscess. Improved. Afebrile overnight. WBC improved. Continues to have tachycardia. Blood cultures drawn 07/01/19 are no growth to date 2 sets. Qualifiers: Sepsis type: sepsis due to unspecified organism Sepsis acute organ dysfunction status: without acute organ dysfunction Qualified Code(s): A41.9 - Sepsis, unspecified organism SNOMED Code(s): 92754254 (2) Abscess of right hip Current Visit: Yes Status: Acute Location: Right hip. Causative organism: Pseudomonas, [id number] Klebsiella pneumoniae, and S.epi (oxacillin R). Etiology: Likely secondary to recent surgical procedures. CT of the head showed a focal fluid collection with internal gas along the lateral aspect proximal femur which appears to extend intra-articular with her right hip joint effusion and some foci of intra-articular gas. Findings are highly concerning for abscess with intra-articular extension and resultant septic arthritis. Overlying and surrounding cellulitis noted. There was also an intramuscular hematoma to the right gluteus inder muscle laterally towards its proximal aspect. No associated soft tissue gas and focus is felt to be unrelated to the aforementioned infectious changes. Status post CT-guided drain placement 07/02/19 by interventional radiology. 5 mL of bloody fluid aspirated. Culture is positive for oxacillin resistant staph epi. Repeat CT of the right hip 07/04/19 showed findings compatible with an abscess lateral to the right hip at the level of the greater/lesser trochanters, pigtail catheter seen in the right gluteal musculature above the posterior to the abscess. Bipolar right hemiarthroplasty noted with gas bubbles seen in the joint space around the neck of the femoral head prosthesis. Fracture of the proximal femur as seen on previous plain films, unchanged. Orthopedics consulted. Status post right hip irrigation and debridement, revision of femoral component 07/04/[address] Bhagat. Operative note reviewed. Large hematoma noted. Cultures positive for GPC (presumtive Staph species). Currently on vancomycin and meropenem. SNOMED Code(s): 085182 (3) Anemia Current Visit: No Status: Acute Etiology: Likely secondary to right hip hematoma. Hemoglobin 8.8 today. Further workup and management per the primary team. Qualifiers: Anemia type: unspecified type Qualified Code(s): D64.9 - Anemia, unspecified SNOMED Code(s): 940545419 (4) Fracture of right hip Current Visit: No Status: Acute Status post fall in April 2019. Status post right total hip arthroplasty 06/05/19. Status post right revision femoral head component 06/17/19. Status post right revision of femoral head component 07/04/19. Qualifiers: Encounter type: initial encounter Fracture type: closed Qualified Code(s): S72.001A - Fracture of unspecified part of neck of right femur, initial encounter for closed fracture SNOMED Code(s): 796256472 (5) GERD (gastroesophageal reflux disease) Current Visit: No Status: Acute Qualifiers: Esophagitis presence: without esophagitis Qualified Code(s): K21.9 - Gastro-esophageal reflux disease without esophagitis SNOMED Code(s): 182949987 (6) Gout Current Visit: No Status: Acute Qualifiers: Gout site: unspecified site Gout etiology: unspecified cause Chronicity: chronic Presence of tophus: without tophus Qualified Code(s): M1A.9XX0 - Chronic gout, unspecified, without tophus (tophi) SNOMED Code(s): 43406403 (7) Bipolar 1 disorder Current Visit: Yes Status: Chronic SNOMED Code(s): 931546209 (8) DM type 2 (diabetes mellitus, type 2) Current Visit: No Status: Chronic Recommend aggressive glucose monitoring and control to promote wound healing and prevent reinfection. Management per the primary team. Qualifiers: Diabetes mellitus long-term insulin use: with demonstrator sales use Diabetes mellitus complication status: without complication Qualified Code(s): E11.9 - Type 2 diabetes mellitus without complications; Z79.4 - layer out plate glass (current) use of insulin SNOMED Code(s): 13993089 (9) Hyperlipidemia Current Visit: No Status: Chronic Qualifiers: Hyperlipidemia type: unspecified Qualified Code(s): E78.5 - Hyperlipidemia, unspecified SNOMED Code(s): 39360072 (10) Hypertension Current Visit: No Status: Chronic Qualifiers: Hypertension type: essential hypertension Qualified Code(s): I10 - Essential (primary) hypertension SNOMED Code(s): 56289812 (11) Seizure disorder Current Visit: No Status: Chronic SNOMED Code(s): 289805630 - Recommendations Recommendations: Await blood cultures to finalize. Await intraoperative cultures to finalize. Wound care, drain management, and activity per the orthopedics team. Continue Vancomycin IV. Pharmacy to dose. Goal trough ~15. Continue Meropenem 1 gram IV Q8H. Duration of treatment depends on the clinical picture, but likely 6 weeks postop. Monitor renal function and for drug toxicity and dose-adjust antibiotics. Contact precautions per hospital policy. social services counselor to assist with discharge planning. Consult Discharge Plan - Plan Referrals: Kristofer Peacock MD [Primary Care Provider] -
--- NOTE | 2019-07-06 18:06 | Internal Med Progress Note ---
Hospitalist Progress Note - Encounter Date of Encounter: 07/06/19 Time of Encounter: 11:00 - Subjective Interval History: No major events overnight. Patient was seen this a.m. He denied fever, chills or night sweats. He has no nausea, vomiting or abdominal pain. Patient denied chest pain, shortness of breath or palpitation. - Exam Vitals: Temp Pulse Resp BP Pulse Ox 98.0 F 116 17 123/77 97 07/06/19 15:00 07/06/19 15:00 07/06/19 15:00 07/06/19 15:00 07/06/19 15:00 Exam: General: Patient is alert, no acute distress, ENT: Patient is deaf at baseline. Communicates with writing and through sign language Respiratory: Good respiratory effort. Normal breath sounds. No wheezing or crackles. Cardiovascular: Regular rate and rhythm. s1 and s2 normal No clicks, rubs, gallops, or murmurs. No pedal edema Abdomen: Abdomen is soft, nontender. Bowel sounds are present Musculoskeletal: Right hip drain in place draining bloody fluid. Skin: warm, dry, intact. Neuro: Alert oriented x 3 normal cranial nerves, no focal deficits - Assessment and Plan (1) Septic arthritis Current Visit: Yes Status: Acute (2) Hypertension Current Visit: No Status: Chronic (3) DM type 2 (diabetes mellitus, type 2) Current Visit: No Status: Chronic (4) Hyperlipidemia Current Visit: No Status: Chronic (5) Leukocytosis Current Visit: Yes Status: Resolved (6) DVT prophylaxis Current Visit: Yes Status: Acute (7) Bipolar 1 disorder Current Visit: Yes Status: Chronic (8) Acute blood loss anemia Current Visit: Yes Status: Resolved (9) GERD (gastroesophageal reflux disease) Current Visit: No Status: Acute (10) Abscess of right hip Current Visit: Yes Status: Acute - Summary of Assessment and Plan Summary of Assessment and Plan: Mr. Prince is a 43 year old male with above medical history significant for diabetes mellitus, presented from the [facility] swing bed for drainage of right hip abscess. Patient had right hip arthroplasty, followed by a fall, with resultant periprostatic fracture of the femur, then he underwent right revision femoral hip component surgery on 06/17/2019, and then he was discharged to swing [facility] for PT/OT. He initially made good progress but after a few days reported worsening pain in the right hip. His performance in therapy declined secondary to the pain. There was noted to be green drainage from the superior portion of the right hip surgical incision. Wound culture returned showing Pseudomonas and Klebsiella MDRO. He was started on oral Levaquin June 27 with [facility] added June 29 when final c/s report was available. Right hip CT scan was ordered on July 01 which showed findings concerning for abscess with intra-articular extension with resultant septic arthritis. Patient was then sent to [facility] for IR to perform aspiration. Right hip Septic arthritis: s/p drainage done by IR. Elevated ESR and CRP. ID consulted, Currently on IV antibiotics meropenem and renally dosed vancomycin (trough is 15). prior cultures grew Pseudomonas and Klebsiella both of which were sensitive to carbapenems now wound cx growing GPC. He is afebrile, hemodynamically stable, leukocytosis improving. Orthopedic surgery is following,S/P hematoma evacuation and revesion day 2. He will need PICC line placed before discharge. Acute anemia: Concern for acute blood loss anemia from his fall and hip hematoma. Hemoglobin at presentation was 5.9, patient received 3 units of PRBCs with good response of his hemoglobin today 10.1. Patient is on PPI. Was on Xarelto for DVT ppx post surgery. Now on hold. Hg is stable. Hyponatremia: Suspect 2/2 hyperglycemia Giving his normal osmolarity with hyperglycemia. Check BMP tomorrow Diabetes mellitus type 2: Controlled, Monitor blood sugars before meals and at bedtime. Continue Levemir 30 units twice a day, will add 6 units of lispro and continue sliding scale short-acting insulin.. Bipolar 1 disorder: Continue Geodon, Seroquel and Lexapro. Essential hypertension: Well controlled. Continue Cardizem, losartan. High risk for complications. DVT ppx: SCD, no AC as per Orthopedic surgery recommendation given his finding of right hip hematoma. I reviewed independently all laboratory workup, pertinent images including x- rays and CT scans. I also reviewed independently and EKGs and my findings are in the body of my assessment and plan. I ordered the laboratory workup and images myself. I discussed finding with patient's, their families, RN's and consultants involved in the care of the patient. - Time Spent with Patient Total time spent is greater than 50% in coordination of care (as documented) at patient's floor/unit and/or counseling patient: Internal Medicine: Result - Labs CBC & Chem 7: 07/06/19 07:11 07/06/19 07:11 Labs: Short CBC 07/06/19 Range/Units 07:11 WBC 12.9 H (4.3-11.1) K/mcL Hgb 8.8 L (12.9-16.9) g/dL Hct 29.1 L (37.5-50.1) % Plt Count 322 (140-400) K/mcL BMP 07/06/19 07:11 Sodium 131 L Potassium 3.8 Chloride 104 Carbon Dioxide 23 BUN 12 Creatinine 0.69 L Glucose 189 H Calcium 9.1 Consult Discharge Plan - Plan Referrals: Kristofer Peacock MD [Primary Care Provider] - (1) Septic arthritis Qualifiers: Septic arthritis location: hip Septic arthritis organism: due to other bacteria Laterality: right Qualified Code(s): M00.851 - Arthritis due to other bacteria, right hip (2) Hypertension Qualifiers: Hypertension type: essential hypertension Qualified Code(s): I10 - Essential (primary) hypertension (3) DM type 2 (diabetes mellitus, type 2) Qualifiers: Diabetes mellitus detention insulin use: with juvenile probation officer use Diabetes mellitus complication status: without complication Qualified Code(s): E11.9 - Type 2 diabetes mellitus without complications; Z79.4 - director of exhibit development (current) use of insulin (4) Hyperlipidemia Qualifiers: Hyperlipidemia type: unspecified Qualified Code(s): E78.5 - Hyperlipidemia, unspecified (5) Leukocytosis Qualifiers: Leukocytosis type: unspecified Qualified Code(s): D72.829 - Elevated white blood cell count, unspecified (9) GERD (gastroesophageal reflux disease) Qualifiers: Esophagitis presence: without esophagitis Qualified Code(s): K21.9 - Gastro- esophageal reflux disease without esophagitis
[2019-07-06] MEDS: Ketoconazole Shampoo 120 ML BOTTLE TP SCH (21:24)
[2019-07-07] MEDS: Meropenem 1,000 MG in 0.9 % Sodium Chloride Mini Bag 100 ML IVPB SCH ×4 (01:01→23:58)
[2019-07-07] MEDS: *HR* HYDROcodone/Acet 5/325 mg TABLET PO SCH ×7 (01:01→20:00)
[2019-07-07] MEDS: Pantoprazole 40 MG VIAL IVP SCH ×2 (05:39→18:37)
[2019-07-07] MEDS: Ringers Solution, Lactated 1,000 ML IVC SCH ×2 (05:40→18:35)
[2019-07-07 06:11] LABS: Hematocrit 28.2 % (37.5-50.1); Hemoglobin 8.9 g/dL (12.9-16.9); Mean Corpuscular HGB Conc 31.6 g/dL (31.6-35.5); Mean Corpuscular Hemoglobin 27.8 pg (28.0-33.3); Mean Corpuscular Volume 88.1 fL (83.0-100.0); Mean Platelet Volume 9.2 fL (9.4-12.4); Platelet Count 302 K/mcL (140-400); White Blood Count 11.6 K/mcL (4.3-11.1)
[2019-07-07] MEDS: Insulin LISPRO 300 UNITS/3 ML VIAL SQ SCH ×6 (08:26→18:36)
--- NOTE | 2019-07-07 08:33 | Orthopedics Progress Note ---
Date of Encounter: 07/07/19 Time of Encounter: 12:30 - Assessment and Plan (1) History of total right hip arthroplasty Current Visit: Yes Status: Acute (2) Hematoma of right hip Current Visit: Yes Status: Resolved Qualifiers: Encounter type: subsequent encounter Qualified Code(s): S70.01XD - Contusion of right hip, subsequent encounter (3) Infection of right prosthetic hip joint Current Visit: Yes Status: Acute Qualifiers: Encounter type: subsequent encounter Qualified Code(s): T84.51XD - Infectio n and inflammatory reaction due to internal right hip prosthesis, subsequent encounter Subjective Principal diagnosis: right hip infection Interval history: POD#4 s/p Right hip irrigation debridement, revision of femoral component [Infected right hematoma] 07/04/19 Patient seen at bedside. A&Ox3 Dressing is 4 x 4's and ABDs with Medipore tape. This is only mildly saturated with serosanguineous fluid. This is much improved from yesterday. Drain is in place. Patient has had less than 100 mL output today. Drain was removed. Patient tolerated well. Incision is intact. No calf tenderness, erythema, or warmth to bilateral lower extremities. Neurovascularly intact b/l LE. Labwork, vitals, and medications reviewed. Pain control: Adequate Participating in therapy. All questions and concerns addressed. Educated on use of incentive spirometer, ambulation, and hydration. Patient educated on post-operative restrictions and care. Addressed: Continue total hip precautions for 6 weeks. Patient to wear hip abduction pillow while sleeping and laying in bed. This will be for 6 weeks postoperatively. Daily dressing changes with 4 x 4's, ABDs, Medipore tape. This includes the drain site. Patient course and disposition discussed with Dr. Bhagat Patient course and disposition discussed with patient's hospitalist. From orthopedic standpoint now that his drain has been removed. The appropriate for discharge back to [facility] with a course of intravenous antibiotics as designated by infectious disease team. Patient is to keep follow up as an outpatient with [facility] as scheduled. Any concerns regarding the incision or patient's precautions should be addressed with [facility]. As patient did develop a large hematoma which subsequently became infected following his last surgery we are concerned about resuming any kind of anticoagulation or DVT prophylaxis. Please reach out to Dr. Bhagat with any concerns or discussion regarding use of these medications. Patient is deaf. Interpretive services were used during this visit to facilitate thorough examination and answering of patient's questions. All statements referenced as "discussed " or "informed" relate to discussion with patient via poultry grader. Objective Vital signs: Vital Signs Temp Pulse Resp BP Pulse Ox 07/07/19 07:42 97.8 F 106 16 138/92 97 07/07/19 03:24 97.9 F 108 16 127/78 98 07/07/19 00:20 21 99 07/06/19 20:14 98.3 F 115 18 136/76 98 07/06/19 15:00 98.0 F 116 17 123/77 97 07/06/19 10:32 98.0 F 114 18 110/73 100 Intake and Output 07/06/19 07/07/19 07/07/19 23:59 07:59 15:59 Intake Total 350 / 2100 1100 / 1100 Output Total 920 / 4165 220 / 220 Balance -570 / -2065 880 / 880 Intake: IV Fluids 350 / 2100 1100 / 1100 Lactated Ringers 1,000 ML @ 75 1000 / 1000 mls/hr IVC .[id number] GABE Rx#: [id number] Merrem 1,000 MG In 0.9 % Sodium 100 / 300 100 / 100 Chloride (Mini-Bag +) 100 ML @ 200 mls/hr IVPB Q8HR GABE Rx#: [id number] Vancocin 1,000 MG In 0.9 % 250 / 250 Sodium Chloride 250 ML @ 167 mls/hr IVPB Q12H GABE Rx#: [id number] Oral 0 / 0 Output: Urine 900 / 4075 220 / 220 Wound Drainage 20 / 90 Right Hip 20 / 90 Other: Percent of Meal Consumed 10% Weight 106.9 kg Blood Glucose* 130 140 Patient Weight 07/07/19 23:59 Weight 106.9 kg - Labs CBC & BMP: 07/07/19 04:00 07/06/19 07:11 Labs: Abnormal lab results WBC 11.6 K/mcL (4.3-11.1) H 07/07/19 04:00 RBC 3.20 M/mcL (4.19-5.50) L 07/07/19 04:00 Hgb 8.9 g/dL (12.9-16.9) L 07/07/19 04:00 Hct 28.2 % (37.5-50.1) L 07/07/19 04:00 MCH 27.8 pg (28.0-33.3) L 07/07/19 04:00 MCHC 30.2 g/dL (31.6-35.5) L 07/06/19 07:11 Plt Count 436 K/mcL (140-400) H 07/01/19 20:44 MPV 9.2 fL (9.4-12.4) L 07/07/19 04:00 Neutrophils # 9.1 K/mcL (1.6-8.9) H 07/01/19 20:44 Anisocytosis 1+ (Not Present) A 07/01/19 20:44 Microcytosis Present (Not Present) A 07/01/19 20:44 ESR 44 mm/hr (0-10) H 07/01/19 19:08 Sodium 131 mEq/L (136-145) L 07/06/19 07:11 Carbon Dioxide 21 mEq/L (23-29) L 07/05/19 04:43 Creatinine 0.69 mg/dL (0.70-1.30) L 07/06/19 07:11 Glucose 189 mg/dL (70-105) H 07/06/19 07:11 POC Glucose 130 mg/dL (70-99) H 07/06/19 20:32 Calculated Osmolality 277 (280-300) L 07/06/19 07:11 C-Reactive Protein 154 mg/L (Less than 10) H 07/01/19 19:08 Vancomycin Trough 24 mcg/mL (5-10) H 07/06/19 12:00 Crossmatch See Detail 07/01/19 21:50 Consult Discharge Plan - Plan Referrals: Kristofer Peacock MD [Primary Care Provider] - Samantha Regan CNP [Advanced Practice Nurse] - 08/02/19 3:00 pm
[2019-07-07] MEDS: Magnesium Oxide 400 MG TABLET PO SCH (09:47)
[2019-07-07] MEDS: Ziprasidone 80 MG CAPSULE PO SCH ×2 (09:47→20:01)
[2019-07-07] MEDS: clonazePAM 1 MG TABLET PO SCH ×4 (09:47→20:00)
[2019-07-07] MEDS: Diltiazem CD (24hr) 180 MG CAPSULE PO SCH (09:47)
[2019-07-07] MEDS: Ascorbic Acid 500 MG TABLET PO SCH ×2 (09:47→18:37)
[2019-07-07] MEDS: METHAZOLAMIDE 50 MG PO SCH (09:48)
[2019-07-07] MEDS: Prenatal Vit/FA 1 EACH TABLET PO SCH (09:48)
[2019-07-07] MEDS: Insulin DETEMIR 100 UNIT/ML X5UNITS SQ SCH ×2 (09:51→20:02)
--- NOTE | 2019-07-07 12:10 | Internal Med Progress Note ---
Hospitalist Progress Note - Encounter Date of Encounter: 07/07/19 Time of Encounter: 09:00 - Subjective Interval History: Patient was seen this morning. His pain under control. He has difficulty urinating started this morning. He had no nausea, vomiting or abdominal pain. He had no fever, chills or night sweats. - Exam Vitals: Temp Pulse Resp BP Pulse Ox 98.0 F 99 16 136/91 100 07/07/19 11:46 07/07/19 11:46 07/07/19 11:46 07/07/19 11:46 07/07/19 11:46 Exam: General: Patient is alert, no acute distress, ENT: Patient is deaf at baseline. Communicates with writing and through sign language Respiratory: Good respiratory effort. Normal breath sounds. No wheezing or crackles. Cardiovascular: Regular rate and rhythm. s1 and s2 normal No clicks, rubs, gallops, or murmurs. No pedal edema Abdomen: Abdomen is soft, nontender. Bowel sounds are present Musculoskeletal: Right hip drain in place draining bloody fluid. Skin: warm, dry, intact. Neuro: Alert oriented x 3 normal cranial nerves, no focal deficits - Assessment and Plan (1) Abscess of right hip Current Visit: Yes Status: Acute (2) Septic arthritis Current Visit: Yes Status: Acute (3) Hypertension Current Visit: Yes Status: Chronic (4) DM type 2 (diabetes mellitus, type 2) Current Visit: Yes Status: Chronic (5) Hyperlipidemia Current Visit: Yes Status: Chronic (6) Leukocytosis Current Visit: Yes Status: Acute (7) Bipolar 1 disorder Current Visit: Yes Status: Chronic (8) Acute blood loss anemia Current Visit: Yes Status: Resolved (9) GERD (gastroesophageal reflux disease) Current Visit: No Status: Acute (10) DVT prophylaxis Current Visit: Yes Status: Acute - Summary of Assessment and Plan Summary of Assessment and Plan: Mr. Prince is a 43 year old male with above medical history significant for diabetes mellitus, presented from the [facility] swing bed for drainage of right hip abscess. Patient had right hip arthroplasty, followed by a fall, with resultant periprostatic fracture of the femur, then he underwent right revision femoral hip component surgery on 06/17/2019, and then he was discharged to swing [facility] for PT/OT. He initially made good progress but after a few days reported worsening pain in the right hip. His performance in therapy declined secondary to the pain. There was noted to be green drainage from the superior portion of the right hip surgical incision. Wound culture returned showing Pseudomonas and Klebsiella MDRO. He was started on oral Levaquin June 27 with Septra DSS added June 29 when final c/s report was available. Right hip CT scan was ordered on July 01 which showed findings concerning for abscess with intra-articular extension with resultant septic arthritis. Patient was then sent to [facility] for IR to perform aspiration. Right hip Septic arthritis: s/p drainage done by IR, draining bloody fluid around 10 CC today as per THE RN. Elevated ESR and CRP. ID consulted, C urrently on IV antibiotics meropenem and renally dosed vancomycin (trough is 24). prior cultures grew Pseudomonas and Klebsiella both of which were sensitive to carbapenems now wound cx growing Staphylococcus epidermidis. He is afebrile, hemodynamically stable, leukocytosis improving. Orthopedic surgery is following, S/P hematoma evacuation and revesion day 3. Plans for CT of the hip today, possible irrigation and debridement. He will need PICC line placed before discharge. Pain management as per orthopedic surgery. Acute anemia: Concern for acute blood loss anemia from his fall and hip hematoma. Hemoglobin at presentation was 5.9, patient received 3 units of PRBCs with good response of his hemoglobin today 8.9. Patient is on PPI. Was on Xarelto for DVT ppx post surgery. Now on hold. Hg is stable. Hyponatremia: Suspect 2/2 hyperglycemia Giving his normal osmolarity with hy perglycemia. Check BMP tomorrow Diabetes mellitus type 2: Controlled, Monitor blood sugars before meals and at bedtime. Continue Levemir 30 units twice a day, will add 6 units of lispro and continue sliding scale short-acting insulin.. Bipolar 1 disorder: Continue Geodon, Seroquel and Lexapro. Essential hypertension: Well controlled. Continue Cardizem, losartan. High risk for complications. DVT ppx: SCD, no AC as per Orthopedic surgery recommendation given his finding of right hip hematoma. I reviewed independently all laboratory workup, pertinent images including x- rays and CT scans. I also reviewed independently and EKGs and my findings are in the body of my assessment and plan. I ordered the laboratory workup and images myself. I discussed finding with patient's, their families, RN's and consultants involved in the care of the patient. - Time Spent with Patient Total time spent is greater than 50% in coordination of care (as documented) at patient's floor/unit and/or counseling patient: Plan of Care Discussed with: patient Internal Medicine: Result - Labs CBC & Chem 7: 07/07/19 04:00 07/06/19 07:11 Labs: Short CBC 07/07/19 Range/Units 04:00 WBC 11.6 H (4.3-11.1) K/mcL Hgb 8.9 L (12.9-16.9) g/dL Hct 28.2 L (37.5-50.1) % Plt Count 302 (140-400) K/mcL Consult Discharge Plan - Plan Referrals: Kristofer Peacock MD [Primary Care Provider] - (2) Septic arthritis Qualifiers: Septic arthritis location: hip Septic arthritis organism: due to other bacteria Laterality: right Qualified Code(s): M00.851 - Arthritis due to other bacteria, right hip (3) Hypertension Qualifiers: Hypertension type: essential hypertension Qualified Code(s): I10 - Essential (primary) hypertension (4) DM type 2 (diabetes mellitus, type 2) Qualifiers: Diabetes mellitus group home insulin use: with intermediate card tender use Diabetes mellitus complication status: without complication Qualified Code(s): E11.9 - Type 2 di abetes mellitus without complications; Z79.4 - rodent exterminator (current) use of insulin (5) Hyperlipidemia Qualifiers: Hyperlipidemia type: unspecified Qualified Code(s): E78.5 - Hyperlipidemia, unspecified (6) Leukocytosis Qualifiers: Leukocytosis type: unspecified Qualified Code(s): D72.829 - Elevated white blood cell count, unspecified (9) GERD (gastroesophageal reflux disease) Qualifiers: Esophagitis presence: without esophagitis Qualified Code(s): K21.9 - Gastro- esophageal reflux disease without esophagitis
--- NOTE | 2019-07-07 13:23 | Infectious Disease Progress No ---
ID Progress Note Date of Encounter: 07/07/19 Time of Encounter: 13:16 - Subjective Subjective: Patient seen and examined with the assistance of the electronic car bracer. No acute events noted overnight. Patient states overall he feels well. Denies fevers, chills, rigors. Denies chest pain, shortness of breath, or cough. Denies nausea, vomiting, diarrhea, or constipation. Denies abdominal pain or urinary complaints. Denies oral thrush or skin rashes. Complains of mild pain in the right hip at the surgical site. States his appetite is okay. - Objective CBC & Chem 7: 07/07/19 04:00 07/06/19 07:11 - Line Documentation Line Documentation: Drain - Exam Vitals: Temp Pulse Resp BP Pulse Ox 98.0 F 99 16 136/91 100 07/07/19 11:46 07/07/19 11:46 07/07/19 11:46 07/07/19 11:46 07/07/19 11:46 Exam: Head: Atraumatic, normal inspection, normocephalic. Eye: EOMI, PERRLA, no scleral icterus noted. ENT: Mucous membranes moist. No odontogenic infection noted. Neck: Normal inspection, no meningismus. Respiratory: Clear to auscultation. No rales, respiratory distress, rhonchi, or wheezes noted. Cardiovascular: Regular rate and rhythm, S1 and S2 audible. No murmurs, rubs, or gallops. GI: Soft, distended, normal bowel sounds. Nontender. Extremities: No joint swelling, pedal edema, or tenderness noted. Right lateral hip surgical incision with dressing intact. GRAYSON drain with sanguinous drainage. No tenderness or fluctuance noted. Neurological: Awake, alert, oriented 3, no focal deficits. Psychiatric: normal affect, normal mood. Skin: Dry, intact, warm. Normal color. No rashes. - Assessment and Plan (1) Sepsis Current Visit: Yes Status: Acute The patient had 2 sepsis criteria including tachycardia and leukocytosis. Likely secondary to right hip abscess. Improved. Afebrile overnight. WBC improved. Continues to have tachycardia. Blood cultures drawn 07/01/19 are no growth to date 2 sets. Qualifiers: Sepsis type: sepsis due to unspecified organism Sepsis acute organ dysfunction status: without acute organ dysfunction Qualified Code(s): A41.9 - Sepsis, unspecified organism SNOMED Code(s): 60134722 (2) Abscess of right hip Current Visit: Yes Status: Acute Location: Right hip. Causative organism: Pseudomonas, [id number] Klebsiella pneumoniae, and S.epi (oxacillin R). Etiology: Likely secondary to recent surgical procedures. CT of the head showed a focal fluid collection with internal gas along the lateral aspect proximal femur which appears to extend intra-articular with her right hip joint effusion and some foci of intra-articular gas. Findings are highly concerning for abscess with intra-articular extension and resultant septic arthritis. Overlying and surrounding cellulitis noted. There was also an intramuscular hematoma to the right gluteus inder muscle laterally towards its proximal aspect. No associated soft tissue gas and focus is felt to be unrelated to the aforementioned infectious changes. Status post CT-guided drain placement 07/02/19 by interventional radiology. 5 mL of bloody fluid aspirated. Culture is positive for oxacillin resistant staph epi. Repeat CT of the right hip 07/04/19 showed findings compatible with an abscess lateral to the right hip at the level of the greater/lesser trochanters, pigtail catheter seen in the right gluteal musculature above the posterior to the abscess. Bipolar right hemiarthroplasty noted with gas bubbles seen in the joint space around the neck of the femoral head prosthesis. Fracture of the proximal femur as seen on previous plain films, unchanged. Orthopedics consulted. Status post right hip irrigation and debridement, revision of femoral component 07/04/[address] Bahgat. Operative note reviewed. Large hematoma noted. Cultures positive for S. epi. Currently on vancomycin and meropenem. SNOMED Code(s): 229420 (3) Anemia Current Visit: No Status: Acute Etiology: Likely secondary to right hip hematoma. Hemoglobin 8.7 today. Further workup and management per the primary team. Qualifiers: Anemia type: unspecified type Qualified Code(s): D64.9 - Anemia, unspecifi ed SNOMED Code(s): 576512653 (4) Fracture of right hip Current Visit: No Status: Acute Status post fall in April 2019. Status post right total hip arthroplasty 06/05/19. Status post right revision femoral head component 06/17/19. Status post right revision of femoral head component 07/04/19. Qualifiers: Encounter type: initial encounter Fracture type: closed Qualified Code(s): S72.001A - Fracture of unspecified part of neck of right femur, initial encounter for closed fracture SNOMED Code(s): 570043336 (5) GERD (gastroesophageal reflux disease) Current Visit: No Status: Acute Qualifiers: Esophagitis presence: without esophagitis Qualified Code(s): K21.9 - G mely-esophageal reflux disease without esophagitis SNOMED Code(s): 940511606 (6) Gout Current Visit: No Status: Acute Qualifiers: Gout site: unspecified site Gout etiology: unspecified cause Chronicity: chronic Presence of tophus: without tophus Qualified Code(s): M1A.9XX0 - Chronic gout, unspecified, without tophus (tophi) SNOMED Code(s): 38932683 (7) Bipolar 1 disorder Current Visit: Yes Status: Chronic SNOMED Code(s): 590576479 (8) DM type 2 (diabetes mellitus, type 2) Current Visit: Yes Status: Chronic Recommend aggressive glucose monitoring and control to promote wound healing and prevent reinfection. Management per the primary team. Qualifiers: Diabetes mellitus residential insulin use: with residential use Diabetes mellitus complication status: without complication Qualified Code(s): E11.9 - Type 2 diabetes mellitus without complications; Z79.4 - traffic technician (current) use of insulin SNOMED Code(s): 76338799 (9) Hyperlipidemia Current Visit: Yes Status: Chronic Qualifiers: Hyperlipidemia type: unspecified Qualified Code(s): E78.5 - Hyperlipidemia, unspecified SNOMED Code(s): 11479137 (10) Hypertension Current Visit: Yes Status: Chronic Qualifiers: Hypertension type: essential hypertension Qualified Code(s): I10 - Essential (primary) hypertension SNOMED Code(s): 93591673 (11) Seizure disorder Current Visit: No Status: Chronic SNOMED Code(s): 757363924 - Recommendations Recommendations: Await blood cultures to finalize. Wound care, drain management, and activity per the orthopedics team. Continue Vancomycin IV. Pharmacy to dose. Goal trough ~15. Continue Meropenem 1 gram IV Q8H. Duration of treatment depends on the clinical picture, but likely 6 weeks postop. Monitor renal function and for drug toxicity and dose-adjust antibiotics. Contact precautions per hospital policy. client services account manager to assist with discharge planning. Consult VAT for PICC placement prior to discharge. Will need weekly CBC, BUN/Cr, ESR, CRP. Will need weekly PICC care per protocol. Follow up with ID 08/02/19 at 1500. Consult Discharge Plan - Plan Referrals: Kristofer Peacock MD [Primary Care Provider] - Samantha Regan CNP [Advanced Practice Nurse] - 08/02/19 3:00 pm
[2019-07-07 23:46] LABS: Bilirubin,Urine Negative (Negative); Blood,Urine Negative (Negative); Clarity,Urine Clear (Clear); Color,Urine Yellow (Yellow); Glucose,Urine (UA) Normal (Normal); Ketones,Urine Negative (Negative); Leukocyte Esterase,Urine Negative (Negative); Nitrite,Urine Negative (Negative); Protein,Urine Negative (Neg-Trace); Specific Gravity,Urine 1.008 (1.010-1.025); Urobilinogen,Urine Normal (Normal)
[2019-07-08] MEDS: *HR* OxyCODONE Immed Rel 5 MG TABLET PO PRN ×2 (01:00→13:53)
[2019-07-08] MEDS: METHAZOLAMIDE 50 MG PO SCH ×2 (01:14→09:50)
[2019-07-08] MEDS: *HR* HYDROcodone/Acet 5/325 mg TABLET PO SCH ×2 (05:10→05:17)
[2019-07-08] MEDS: Pantoprazole 40 MG VIAL IVP SCH (05:17)
[2019-07-08] MEDS: Ringers Solution, Lactated 1,000 ML IVC SCH (05:33)
[2019-07-08] MEDS ORDERED: Lidocaine -MPF 1% 5 ML AMPUL INFILT ONE (07:45)
[2019-07-08 08:05] LABS: Basophils # 0.1 K/mcL (0.0-0.2); Basophils % 0.4 %; Eosinophils # 0.3 K/mcL (0.0-0.6); Eosinophils % 2.5 %; Hematocrit 28.4 % (37.5-50.1); Hemoglobin 8.8 g/dL (12.9-16.9); Immature Granulocytes % 4.1 % (0-4); Lymphocytes # 2.2 K/mcL (0.6-4.6); Lymphocytes % 19.1 %; Mean Corpuscular Hemoglobin 27.5 pg (28.0-33.3); Mean Corpuscular Volume 88.8 fL (83.0-100.0); Monocytes # 0.7 K/mcL (0.0-1.3); Monocytes % 6.1 %; Neutrophils # 7.7 K/mcL (1.6-8.9); Platelet Count 309 K/mcL (140-400); Segmented Neutrophils % 67.8 %; White Blood Count 11.4 K/mcL (4.3-11.1)
[2019-07-08] MEDS: Insulin LISPRO 300 UNITS/3 ML VIAL SQ SCH ×4 (08:07→13:54)
[2019-07-08 08:24] LABS: BUN/Creatinine Ratio 16 (6-26); Blood Urea Nitrogen 11 mg/dL (6-20); Calcium 9.1 mg/dL (8.6-10.3); Carbon Dioxide 21 mEq/L (23-29); Chloride 102 mEq/L (98-107); Glucose 113 mg/dL (70-105); Osmolality,Calculated 274 (280-300); Potassium 3.9 mEq/L (3.5-5.1); Sodium 132 mEq/L (136-145); eGFR For African Americans > 60 (> 60); eGFR For Non-African Americans > 60 (> 60)
[2019-07-08] MEDS: Meropenem 1,000 MG in 0.9 % Sodium Chloride Mini Bag 100 ML IVPB SCH (09:48)
[2019-07-08] MEDS: Ascorbic Acid 500 MG TABLET PO SCH (09:49)
[2019-07-08] MEDS: clonazePAM 1 MG TABLET PO SCH ×2 (09:49→13:53)
[2019-07-08] MEDS: Magnesium Oxide 400 MG TABLET PO SCH (09:49)
[2019-07-08] MEDS: Ziprasidone 80 MG CAPSULE PO SCH (09:50)
[2019-07-08] MEDS: Prenatal Vit/FA 1 EACH TABLET PO SCH (09:50)
[2019-07-08] MEDS: Insulin DETEMIR 100 UNIT/ML X5UNITS SQ SCH (09:50)
[2019-07-08] MEDS: Diltiazem CD (24hr) 180 MG CAPSULE PO SCH (09:50)
[2019-07-08 10:31] VITALS: BP 134/88
--- NOTE | 2019-07-08 11:38 | Discharge Summary ---
- NOTES TO OUTPATIENT PROVIDER Notes to Outpatient Provider: Patient came in with right hip abscess and hematoma. Drain was placed and removed by orthopedic surgery. Hematoma was evacuated and the hip was operated. Patient was started on IV antibiotics. Follow-up with bone and joint and follow-up with infectious disease as schedul ed. Orders not resulted at time of discharge: Pending orders 07/04/19 16:05 Culture,Anaerobic [RM] Routine 07/07/19 10:33 Culture,Urine [RM] Routine Date of Encounter: 07/08/19 Time of Encounter: 10:00 - Discharge Diagnosis (1) Abscess of right hip Priority: Primary Status: Resolved (2) Septic arthritis Priority: Secondary Status: Acute Qualifiers: Septic arthritis location: hip Septic arthritis organism: due to other bacteria Laterality: right Qualified Code(s): M00.851 - Arthritis due to other bacteria, right hip (3) Hypertension Priority: Secondary Status: Chronic Qualifiers: Hypertension type: essential hypertension Qualified Code(s): I10 - Essential (primary) hypertension (4) DM type 2 (diabetes mellitus, type 2) Priority: Secondary Status: Chronic Qualifiers: Diabetes mellitus jail insulin use: with brick and block mason use Diabetes mellitus complication status: without complication Qualified Code(s): E11.9 - Type 2 diabetes mellitus without complications; 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 (5) Hyperlipidemia Priority: Secondary Status: Chronic Qualifiers: Hyperlipidemia type: unspecified Qualified Code(s): E78.5 - Hyperlipidemia, unspecified (6) Leukocytosis Priority: Secondary Status: Acute Qualifiers: Leukocytosis type: unspecified Qualified Code(s): D72.829 - Elevated white blood cell count, unspecified (7) Bipolar 1 disorder Priority: Secondary Status: Chronic (8) Acute blood loss anemia Priority: Secondary Status: Resolved (9) GERD (gastroesophageal reflux disease) Priority: Secondary Status: Acute Qualifiers: Esophagitis presence: without esophagitis Qualified Code(s): K21.9 - Gastro-esophageal reflux disease without esophagitis (10) DVT prophylaxis Priority: Secondary Status: Acute Hospital course: Mr. Prince is a 43 year old male with past medical history significant for diabetes mellitus, presented from the [facility] swing bed for drainage of right hip abscess. Patient had right hip arthroplasty, followed by a fall, with resultant periprostatic fracture of the femur, then he underwent right revision femoral hip component surgery on 06/17/2019, and then he was discharged to [facility]. There was noted to be green drainage from the superior portion of the right hip surgical incision. Patient was sent to the hospital and his Right hip CT scan revealed findings concerning for abscess with intra-articular extension with resultant septic arthritis. He had drainage placed under IR. He was found to be in profound anemia with hemoglobin of 5. Patient has 3 units of PRBC with stabilization of his hemoglobin. AC were discontinued by orthopedic surgery with recommendation not to start them. Patient was taken to the OR for Right hip irrigation debridement, revision of femoral component. Drain was removed before discharge per orthopedic surgery. ID was also following and patient was placed on IV meropenem and vancomycin. Surgical wound cultures grew staphylococcus epidermidis with prioior cultures grew Pseudomonas and Klebsiella. Before discharge, patient with get IV access scheduled by infectious disease. He will be discharged to [facility] to complete course of IV abx as per ID( refer to their note). Scripts for ABX and lab work will provided by their service. Patient referred up with infectious disease and orthopedic surgery as outpatient. Appointments were scheduled already. Discharge discussed with: patient - Time Spent with Patient Total time spent providing and/or coordinating discharge services: 45 minutes - Discharge Medications Prescriptions: New Ferrous Sulfate 325 mg PO BIDWM tablet Docusate [Colace] 100 mg PO BID capsule MOM Conc [MILK OF MAGNESIA conc] 5 ml PO HS PRN ud.liq PRN Reason: Constipation Continued Quetiapine Fumarate [Seroquel Xr] 300 mg PO BID Pravastatin Sodium [Pravachol] 20 mg PO HS Bimatoprost [Lumigan] 1 drop BOTH EYES QPM Ergocalciferol (VITAMIN D2) [Vitamin D2] 50,000 unit PO SUWE Ketoconazole Shampoo [Nizoral Shampoo] 1 appl TP Q48H Non-Formulary Medication 100 mg PO BID Vit #108/Iron/FA [ One Tablet] 1 tab PO DAILY clonazePAM [Clonazepam] 1 mg PO QID PRN PRN Reason: anxiety/aggitation Diltiazem HCl [Cardizem LA] 180 mg PO DAILY Patient Taking Own Medication 0 each PO BID each Guaifenesin [Mucinex] 600 mg PO BID PRN PRN Reason: Congestion Oxycodone HCl/Acetaminophen [Percocet 10-325 mg Tablet] 1 tab PO QID PRN PRN Reason: Pain Ziprasidone HCl [Geodon] 80 mg PO BID Insulin ASPART [NovoLOG] 0 units SQ QID Liraglutide [Victoza 3-Teja] 1.8 mg SQ DAILY clonazePAM [Clonazepam] 2 mg PO QID Omeprazole [PriLOSEC] 20 mg PO BID Losartan Potassium [Cozaar] 50 mg PO DAILY Allopurinol [Zyloprim 100 MG] 100 mg PO BID Escitalopram [Lexapro] 20 mg PO HS Albuterol Sulfate [Ventolin Hfa] 2 puff IH Q4H PRN PRN Reason: Shortness Of Breath Insulin Glargine,Hum.rec.anlog [Basaglar Kwikpen U-100] 60 unit SQ BID Magnesium Oxide [Mag-Ox] 400 mg PO DAILY #7 tablet Potassium Chloride 20 meq PO BID #60 tab.er.prt Discontinued Furosemide [Lasix] 20 mg PO DAILY tablet Rivaroxaban [Xarelto] 10 mg PO 1700 #21 tablet Home Medications: Albuterol Sulfate [Ventolin Hfa] 2 puff IH Q4H PRN 04/21/19 [History] Allopurinol [Zyloprim 100 MG] 100 mg PO BID 04/21/19 [History] Escitalopram [Lexapro] 20 mg PO HS 04/21/19 [History] Guaifenesin [Mucinex] 600 mg PO BID PRN 04/21/19 [History] Insulin ASPART [NovoLOG] 0 units SQ QID 04/21/19 [History] Insulin Glargine,Hum.rec.anlog [Basaglar Kwikpen U-100] 60 unit SQ BID 04/21/19 [History] Liraglutide [Victoza 3-Teja] 1.8 mg SQ DAILY 04/21/19 [History] Losartan Potassium [Cozaar] 50 mg PO DAILY 04/21/19 [History] Omeprazole [PriLOSEC] 20 mg PO BID 04/21/19 [History] Oxycodone HCl/Acetaminophen [Percocet 10-325 mg Tablet] 1 tab PO QID PRN 04/21/19 [History] Ziprasidone HCl [Geodon] 80 mg PO BID 04/21/19 [History] clonazePAM [Clonazepam] 2 mg PO QID 04/21/19 [History] Pravastatin Sodium [Pravachol] 20 mg PO HS 06/04/19 [History] Quetiapine Fumarate [Seroquel Xr] 300 mg PO BID 06/04/19 [History] Bimatoprost [Lumigan] 1 drop BOTH EYES QPM 06/05/19 [History] Ergocalciferol (VITAMIN D2) [Vitamin D2] 50,000 unit PO SUWE 06/05/19 [History] Ketoconazole Shampoo [Nizoral Shampoo] 1 appl TP Q48H 06/05/19 [History] Non-Formulary Medication 100 mg PO BID 06/05/19 [History] Vit #108/Iron/FA [ One Tablet] 1 tab PO DAILY 06/05/19 [History] clonazePAM [Clonazepam] 1 mg PO QID PRN 06/05/19 [History] Magnesium Oxide [Mag-Ox] 400 mg PO DAILY #7 tablet 06/13/19 [Rx] Potassium Chloride 20 meq PO BID #60 tab.er.prt 06/13/19 [Rx] Diltiazem HCl [Cardizem LA] 180 mg PO DAILY 06/15/19 [History] Patient Taking Own Medication 0 each PO BID each 06/20/19 [Rx] Docusate [Colace] 100 mg PO BID capsule 07/08/19 [Rx] Ferrous Sulfate 325 mg PO BIDWM tablet 07/08/19 [Rx] MOM Conc [MILK OF MAGNESIA conc] 5 ml PO HS PRN ud.liq 07/08/19 [Rx] Allergies/Adverse Reactions: Allergy/AdvReac Type Severity Reaction Status Date / Time fentanyl AdvReac See Verified 06/05/19 17:34 Comments IV CONTRAST DYE Allergy See Uncoded 06/05/19 17:34 Comments Date of admission: 07/01/19 17:05 Primary care physician: Kristofer Peacock MD Consults: 07/01/19 17:35 Consult to Orthopedic Surgery [CONS] Routine Consulting Provider: Blake Bhagat Reason for Consult: Right hip abscess Call Completed: Yes 07/01/19 17:36 Consult to Infectious Diseases [CONS] Routine Consulting Provider: Infectious Disease [place] Reason for Consult: Right Hip abscess Call Completed: No Consult to Interventional Radiology [CONS] Routine Consulting Provider: Radiology Interventional [place] Reason for Consult: Drainage of the right hip abscess Call Completed: No 07/01/19 17:43 Consult to Nutrition [CONS] Routine Comment: Consulting Provider: NUTRITION Reason for Dietary Consult: MST Score 07/01/19 17:48 Consult to Wound Care [CONS] Routine Reason for Consult: Abscess of the right hip Call Completed: No 07/04/19 17:27 Consult to Nurse Navigator [CONS] Routine Comment: ortho navigator Consult to Nutrition [CONS] Routine Comment: Consulting Provider: NUTRITION Reason for Dietary Consult: Other Other:: Proper nutrition to facilitate wound healing Consult to Occupational Therapy [CONS] Routine Comment: Evaluate, develop and implement POC Reason for Consult: total hip replacement Does patient have active BEDREST order?: No Is patient medically & hemodynamically stable?: Yes Consult to Physical Therapy [CONS] Routine Comment: Evaluate, develop and implement POC Reason for Consult: total hip replacement Does patient have active BEDREST order?: No Is patient medically & hemodynamically stable?: Yes Consult to Splitting Machine Feeder [CONS] Routine Reason for SW Consult: post op joint replacement RT Post Op Consult [CONS] Routine 07/08/19 07:45 Consult to Invasive Line Access Team [CONS] Routine Reason for Consult: Picc Line Insertion Line Type: PICC - Constitutional Vitals: Temp Pulse Resp BP Pulse Ox 98.1 F 103 16 134/88 98 07/08/19 10:29 07/08/19 10:29 07/08/19 10:29 07/08/19 10:29 07/08/19 10:29 Exam: General: Patient is alert, no acute distress, ENT: Patient is deaf at baseline. Communicates with writing and through sign language Respiratory: Good respiratory effort. Normal breath sounds. No wheezing or crackles. Cardiovascular: Regular rate and rhythm. s1 and s2 normal No clicks, rubs, gallops, or murmurs. No pedal edema Abdomen: Abdomen is soft, nontender. Bowel sounds are present Musculoskeletal: Right hip dressing, LLE movements is intact. Skin: warm, dry, intact. Neuro: Alert oriented x 3 normal cranial nerves, no focal deficits - Patient Status Disposition: Transfer SNF Condition: Good Functional capacity at discharge: uses cane/walker Overall status at discharge: patient is not back to baseline - Discharge Instructions Follow Up With: Kristofer Peacock MD [Primary Care Provider] - Samantha Regan, EQUIPMENT WASHER [Advanced Practice Nurse] - 08/02/19 3:00 pm - Diet and Activity Activity: as per physical therapy Diet: diabetic diet
--- NOTE | 2019-07-08 11:52 | Physician Discharge Referral ---
ExtendedCare Referral Info Transfer To: ECF Provider in Charge after Transfer: PCP Institutional Level of Care: Skilled - Diagnosis (1) Abscess of right hip Priority: Primary Status: Resolved (2) Septic arthritis Priority: Secondary Status: Acute (3) Hypertension Priority: Secondary Status: Chronic (4) DM type 2 (diabetes mellitus, type 2) Priority: Secondary Status: Chronic (5) Hyperlipidemia Priority: Secondary Status: Chronic (6) Leukocytosis Priority: Secondary Status: Acute (7) Bipolar 1 disorder Priority: Secondary Status: Chronic (8) Acute blood loss anemia Priority: Secondary Status: Resolved (9) GERD (gastroesophageal reflux disease) Priority: Secondary Status: Acute (10) DVT prophylaxis Priority: Secondary Status: Acute Prognosis: Good Aware of Diagnosis: Patient - Transfer Medications Home Medications: Albuterol Sulfate [Ventolin Hfa] 2 puff IH Q4H PRN 04/21/19 [History] Allopurinol [Zyloprim 100 MG] 100 mg PO BID 04/21/19 [History] Escitalopram [Lexapro] 20 mg PO HS 04/21/19 [History] Guaifenesin [Mucinex] 600 mg PO BID PRN 04/21/19 [History] Insulin ASPART [NovoLOG] 0 units SQ QID 04/21/19 [History] Insulin Glargine,Hum.rec.anlog [Basaglar Kwikpen U-100] 60 unit SQ BID 04/21/19 [History] Liraglutide [Victoza 3-Teja] 1.8 mg SQ DAILY 04/21/19 [History] Losartan Potassium [Cozaar] 50 mg PO DAILY 04/21/19 [History] Omeprazole [PriLOSEC] 20 mg PO BID 04/21/19 [History] Oxycodone HCl/Acetaminophen [Percocet 10-325 mg Tablet] 1 tab PO QID PRN 04/21/19 [History] Ziprasidone HCl [Geodon] 80 mg PO BID 04/21/19 [History] clonazePAM [Clonazepam] 2 mg PO QID 04/21/19 [History] Pravastatin Sodium [Pravachol] 20 mg PO HS 06/04/19 [History] Quetiapine Fumarate [Seroquel Xr] 300 mg PO BID 06/04/19 [History] Bimatoprost [Lumigan] 1 drop BOTH EYES QPM 06/05/19 [History] Ergocalciferol (VITAMIN D2) [Vitamin D2] 50,000 unit PO SUWE 06/05/19 [History] Ketoconazole Shampoo [Nizoral Shampoo] 1 appl TP Q48H 06/05/19 [History] Non-Formulary Medication 100 mg PO BID 06/05/19 [History] Vit #108/Iron/FA [ One Tablet] 1 tab PO DAILY 06/05/19 [History] clonazePAM [Clonazepam] 1 mg PO QID PRN 06/05/19 [History] Magnesium Oxide [Mag-Ox] 400 mg PO DAILY #7 tablet 06/13/19 [Rx] Potassium Chloride 20 meq PO BID #60 tab.er.prt 06/13/19 [Rx] Diltiazem HCl [Cardizem LA] 180 mg PO DAILY 06/15/19 [History] Patient Taking Own Medication 0 each PO BID each 06/20/19 [Rx] Docusate [Colace] 100 mg PO BID capsule 07/08/19 [Rx] Ferrous Sulfate 325 mg PO BIDWM tablet 07/08/19 [Rx] MOM Conc [MILK OF MAGNESIA conc] 5 ml PO HS PRN ud.liq 07/08/19 [Rx] Allergies/Adverse Reactions: Allergy/AdvReac Type Severity Reaction Status Date / Time fentanyl AdvReac See Verified 06/05/19 17:34 Comments IV CONTRAST DYE Allergy See Uncoded 06/05/19 17:34 Comments - Respiratory Orders None Smoking Cessation: Smoking cessation has been advised. For more information, call the [place] Tobacco Quit Line at 9-800-UHTE-NOW. - Mobility Orders Other (Continue total hip precautions for 6 weeks. Patient to wear hip abduction pillow while sleeping and laying in bed. This will be for 6 weeks postoperatively.) - Rehabiliation Orders Rehab Potential: Good Rehab Orders: Evaluation for Physical Therapy, Evaluation for Occupational Therapy - Treatments List/Other: Daily dressing changes with 4 x 4's, ABDs, Medipore tape. This includes the drain site. - Diet Orders Cardiac CERTIFICATION: I certify that the transfer of the above named patient to an Extended Care Facility is necessary for the continuing treatment of the diagnosis listed. The above information is true and accurate reflection of patient's current condition. Confidential - Redisclosure prohibited without a patient's written consent.
--- NOTE | 2019-07-08 11:52 | Infectious Disease Progress No ---
ID Progress Note - Subjective Subjective: Patient seen and examined with the assistance of the electronic resizer operator. No acute events noted overnight. Patient states overall he feels well. Denies fevers, chills, rigors. Denies chest pain, shortness of breath, or cough. Denies nausea, vomiting, diarrhea, or constipation. Denies abdominal pain or urinary complaints. Denies oral thrush or skin rashes. Complains of mild pain in the right hip at the surgical site. States his appetite is okay. - Objective CBC & Chem 7: 07/08/19 07:47 07/08/19 07:47 - Line Documentation Line Documentation: Drain - Exam Vitals: Temp Pulse Resp BP Pulse Ox 98.1 F 103 16 134/88 98 07/08/19 10:29 07/08/19 10:29 07/08/19 10:29 07/08/19 10:29 07/08/19 10:29 - Assessment and Plan (1) Sepsis Current Visit: Yes Status: Acute The patient had 2 sepsis criteria including tachycardia and leukocytosis. Likely secondary to right hip abscess. Improved. Afebrile overnight. WBC improved. Continues to have tachycardia. Blood cultures drawn 07/01/19 are no growth to date 2 sets. Qualifiers: Qualified Code(s): A41.9 - Sepsis, unspecified organism SNOMED Code(s): 06618429 (2) Abscess of right hip Current Visit: Yes Status: Resolved Location: Right hip. Causative organism: Pseudomonas, [id number] Klebsiella pneumoniae, and S.epi (oxacillin R). Etiology: Likely secondary to recent surgical procedures. CT of the head showed a focal fluid collection with internal gas along the lateral aspect proximal femur which appears to extend intra-articular with her right hip joint effusion and some foci of intra-articular gas. Findings are highly concerning for abscess with intra-articular extension and resultant septic arthritis. Overlying and surrounding cellulitis noted. There was also an intramuscular hematoma to the right gluteus inder muscle laterally towards its proximal aspect. No associated soft tissue gas and focus is felt to be unrelated to the aforementioned infectious changes. Status post CT-guided drain placement 07/02/19 by interventional radiology. 5 mL of bloody fluid aspirated. Culture is positive for oxacillin resistant staph epi. Repeat CT of the right hip 07/04/19 showed findings compatible with an abscess lateral to the right hip at the level of the greater/lesser trochanters, pigtail catheter seen in the right gluteal musculature above the posterior to the abscess. Bipolar right hemiarthroplasty noted with gas bubbles seen in the joint space around the neck of the femoral head prosthesis. Fracture of the proximal femur as seen on previous plain films, unchanged. Orthopedics consulted. Status post right hip irrigation and debridement, revision of femoral component 07/04/[address] Bhagat. Operative note reviewed. Large hematoma noted. Cultures positive for S. epi. Currently on vancomycin and meropenem. SNOMED Code(s): 194370 (3) Anemia Current Visit: No Status: Acute Etiology: Likely secondary to right hip hematoma. Hemoglobin 8.7 today. Further workup and management per the primary team. Qualifiers: Qualified Code(s): D64.9 - Anemia, unspecified SNOMED Code(s): 439390856 (4) Fracture of right hip Current Visit: No Status: Acute Status post fall in April 2019. Status post right total hip arthroplasty 06/05/19. Status post right revision femoral head component 06/17/19. Status post right revision of femoral head component 07/04/19. Qualifiers: Qualified Code(s): S72.001A - Fracture of unspecified part of neck of right femur, initial encounter for closed fracture SNOMED Code(s): 748896359 (5) GERD (gastroesophageal reflux disease) Current Visit: No Status: Acute Qualifiers: Qualified Code(s): K21.9 - Gastro-esophageal reflux disease without esophagitis SNOMED Code(s): 763033635 (6) Gout Current Visit: No Status: Acute Qualifiers: Qualified Code(s): M1A.9XX0 - Chronic gout, unspecified, without tophus (tophi) SNOMED Code(s): 51761029 (7) Bipolar 1 disorder Current Visit: Yes Status: Chronic SNOMED Code(s): 926425867 (8) DM type 2 (diabetes mellitus, type 2) Current Visit: Yes Status: Chronic Recommend aggressive glucose monitoring and control to promote wound healing and prevent reinfection. Management per the primary team. Qualifiers: Qualified Code(s): E11.9 - Type 2 diabetes mellitus without complications; Z79.4 - vermin exterminator (current) use of insulin SNOMED Code(s): 49773007 (9) Hyperlipidemia Current Visit: Yes Status: Chronic Qualifiers: Qualified Code(s): E78.5 - Hyperlipidemia, unspecified SNOMED Code(s): 57169563 (10) Hypertension Current Visit: Yes Status: Chronic Qualifiers: Qualified Code(s): I10 - Essential (primary) hypertension SNOMED Code(s): 11685607 (11) Seizure disorder Current Visit: No Status: Chronic SNOMED Code(s): 889100626 Consult Discharge Plan - Plan Referrals: Kristofer Peacock MD [Primary Care Provider] - Samantha Regan CNP [Advanced Practice Nurse] - 08/02/19 3:00 pm Prescriptions: Meropenem [Merrem] 1,000 mg IVPB Q8HR #111 vial Vancomycin [Vancocin] 1,000 mg IV Q12H #74 vial
--- NOTE | 2019-07-08 13:04 | Infectious Disease Progress No ---
ID Progress Note Date of Encounter: 07/08/19 Time of Encounter: 13:02 - Subjective Subjective: Patient seen and examined with the assistance of the electronic instructional technology instructor. No acute events noted overnight. Patient states overall he feels well. Denies fevers, chills, rigors. Denies chest pain, shortness of breath, or cough. Denies nausea, vomiting, diarrhea, or constipation. BM x 2 today. Denies abdominal pain or urinary complaints. Denies oral thrush or skin rashes. Comp lains of mild pain in the right hip at the surgical site. States his appetite is okay. - Objective CBC & Chem 7: 07/08/19 07:47 07/08/19 07:47 - Exam Vitals: Temp Pulse Resp BP Pulse Ox 98.1 F 103 16 134/88 98 07/08/19 10:29 07/08/19 10:29 07/08/19 10:29 07/08/19 10:29 07/08/19 10:29 Exam: Head: Atraumatic, normal inspection, normocephalic. Eye: EOMI, PERRLA, no scleral icterus noted. ENT: Mucous membranes moist. No odontogenic infection noted. Neck: Normal inspection, no meningismus. Respiratory: Clear to auscultation. No rales, respiratory distress, rhonchi, or wheezes noted. Cardiovascular: Regular rate and rhythm, S1 and S2 audible. No murmurs, rubs, or gallops. GI: Soft, distended, normal bowel sounds. Nontender. Extremities: No joint swelling, pedal edema, or tenderness noted. Right lateral hip surgical incision with dressing intact. Neurological: Awake, alert, oriented 3, no focal deficits. Psychiatric: normal affect, normal mood. Skin: Dry, intact, warm. Normal color. No rashes. - Assessment and Plan (1) Sepsis Current Visit: Yes Status: Acute The patient had 2 sepsis criteria including tachycardia and leukocytosis. Likely secondary to right hip abscess. Improved. Afebrile overnight. WBC improved. Continues to have tachycardia. Blood cultures drawn 07/01/19 are negative 2 sets. Qualifiers: Sepsis type: sepsis due to unspecified organism Sepsis acute organ dysfunction status: without acute organ dysfunction Qualified Code(s): A41.9 - Sepsis, unspecified organism SNOMED Code(s): 61727356 (2) Abscess of right hip Current Visit: Yes Status: Resolved Location: Right hip. Causative organism: Pseudomonas, [id number] Klebsiella pneumoniae, and S.epi (oxacillin R). Etiology: Likely secondary to recent surgical procedures. CT of the head showed a focal fluid collection with internal gas along the lateral aspect proximal femur which appears to extend intra-articular with her right hip joint effusion and some foci of intra-articular gas. Findings are highly concerning for abscess with intra-articular extension and resultant septic arthritis. Overlying and surrounding cellulitis noted. There was also an intramuscular hematoma to the right gluteus inder muscle laterally towards its proximal aspect. No associated soft tissue gas and focus is felt to be unrelated to the aforementioned infectious changes. Status post CT-guided drain placement 07/02/19 by interventional radiology. 5 mL of bloody fluid aspirated. Culture is positive for oxacillin resistant staph epi. Repeat CT of the right hip 07/04/19 showed findings compatible with an abscess lateral to the right hip at the level of the greater/lesser trochanters, pigtail catheter seen in the right gluteal musculature above the posterior to the abscess. Bipolar right hemiarthroplasty noted with gas bubbles seen in the joint space around the neck of the femoral head prosthesis. Fracture of the proximal femur as seen on previous plain films, unchanged. Orthopedics consulted. Status post right hip irrigation and debridement, revision of femoral component 07/04/[address] Bhagat. Operative note reviewed. Large hematoma noted. Cultures positive for S. epi. Currently on vancomycin and meropenem. SNOMED Code(s): 700652 (3) Anemia Current Visit: No Status: Acute Etiology: Likely secondary to right hip hematoma. Hemoglobin 8.8 today. Further workup and management per the primary team. Qualifiers: Anemia type: unspecified type Qualified Code(s): D64.9 - Anemia, unspecified SNOMED Code(s): 514430062 (4) Fracture of right hip Current Visit: No Status: Acute Status post fall in April 2019. Status post right total hip arthroplasty 06/05/19. Status post right revision femoral head component 06/17/19. Status post right revision of femoral head component 07/04/19. Qualifiers: Encounter type: initial encounter Fracture type: closed Qualified Code(s): S72.001A - Fracture of unspecified part of neck of right femur, initial encounter for closed fracture SNOMED Code(s): 037722090 (5) GERD (gastroesophageal reflux disease) Current Visit: No Status: Acute Qualifiers: Esophagitis presence: without esophagitis Qualified Code(s): K21.9 - Gastro-esophageal reflux disease without esophagitis SNOMED Code(s): 971990452 (6) Gout Current Visit: No Status: Acute Qualifiers: Gout site: unspecified site Gout etiology: unspecified cause Chronicity: chronic Presence of tophus: without tophus Qualified Code(s): M1A.9XX0 - Chronic gout, unspecified, without tophus (tophi) SNOMED Code(s): 01838143 (7) Bipolar 1 disorder Current Visit: Yes Status: Chronic SNOMED Code(s): 199291911 (8) DM type 2 (diabetes mellitus, type 2) Current Visit: Yes Status: Chronic Recommend aggressive glucose monitoring and control to promote wound healing and prevent reinfection. Management per the primary team. Qualifiers: Diabetes mellitus buttermilk drier operator insulin use: with buttermilk drier operator use Diabetes mellitus complication status: without complication Qualified Code(s): E11.9 - Type 2 diabetes mellitus without complications; Z79.4 - residential (current) use of insulin SNOMED Code(s): 43484356 (9) Hyperlipidemia Current Visit: Yes Status: Chronic Qualifiers: Hyperlipidemia type: unspecified Qualified Code(s): E78.5 - Hyperlipidemia, unspecified SNOMED Code(s): 23526288 (10) Hypertension Current Visit: Yes Status: Chronic Qualifiers: Hypertension type: essential hypertension Qualified Code(s): I10 - Essential (primary) hypertension SNOMED Code(s): 02285482 (11) Seizure disorder Current Visit: No Status: Chronic SNOMED Code(s): 355984610 - Recommendations Recommendations: Wound care and activity per the orthopedics team. Continue Vancomycin IV. Pharmacy to dose. Goal trough ~15. Continue Meropenem 1 gram IV Q8H. Duration of treatment depends on the clinical picture, but likely 6 weeks postop. Monitor renal function and for drug toxicity and dose-adjust antibiotics. Contact precautions per hospital policy. environmental services director to assist with discharge planning. Consult VAT for PICC placement prior to discharge. Will need weekly CBC, BUN/Cr, ESR, CRP. Will need weekly PICC care per protocol. Follow up with ID 08/02/19 at 1500. Consult Discharge Plan - Plan Referrals: Kristofer Peacock MD [Primary Care Provider] - Samantha Regan CNP [Advanced Practice Nurse] - 08/02/19 3:00 pm Prescriptions: Meropenem [Merrem] 1,000 mg IVPB Q8HR #111 vial Vancomycin [Vancocin] 1,000 mg IV Q12H #74 vial
[2019-07-08] MEDS ORDERED: Aminoglycoside Consult 1 EACH MC ONE (17:50)
--- NOTE | 2019-07-08 19:51 | Orthopedics Progress Note ---
Date of Encounter: 07/08/19 Time of Encounter: 12:30 - Assessment and Plan (1) History of total right hip arthroplasty Status: Acute (2) Hematoma of right hip Status: Resolved Qualifiers: Encounter type: subsequent encounter Qualified Code(s): S70.01XD - Contusion of right hip, subsequent encounter (3) Infection of right prosthetic hip joint Status: Acute Qualifiers: Encounter type: subsequent encounter Qualified Code(s): T84.51XD - Infection and inflammatory reaction due to internal right hip prosthesis, subsequent encounter Subjective Principal diagnosis: right hip infection Interval history: POD#4 s/p Right hip irrigation debridement, revision of femoral component [Infected right hematoma] 07/04/19 Patient seen at bedside. A&Ox3 Dressing is 4 x 4's and ABDs with Medipore tape. This is moderately saturated with serosanguineous fluid. This is much improved from yesterday. Drain site clean and intact. No calf tenderness, erythema, or warmth to bilateral lower extremities. Neurovascularly intact b/l LE. Labwork, vitals, and medications reviewed. Pain control: Adequate Participating in therapy. All questions and concerns addressed. Educated on use of incentive spirometer, ambulation, and hydration. Patient educated on post-operative restrictions and care. Addressed: Continue total hip precautions for 6 weeks. Patient to wear hip abduction pillow while sleeping and laying in bed. This will be for 6 weeks postoperatively. Daily dressing changes with 4 x 4's, ABDs, Medipore tape. This includes the drain site. Patient course and disposition discussed with Dr. Bhagat Patient course and disposition discussed with patient's hospitalist. From orthopedic standpoint now that his drain has been removed he is appropriate for discharge back to [facility] with a course of intravenous antibiotics as designated by infectious disease team. Patient is to keep follow up as an o utpatient with [facility] as scheduled. Any concerns regarding the incision or patient's precautions should be addressed with [facility]. As patient did develop a large hematoma which subsequently became infected following his last surgery we are concerned about resuming any kind of anticoagulation or DVT prophylaxis. Please reach out to [facility] with any concerns or discussion regarding use of these medications. Patient is deaf. Interpretive services were used during this visit to facilitate thorough examination and answering of patient's questions. All statements referenced as "discussed " or "informed" relate to discussion with patient via laminator preforms. Objective Vital signs: Vital Signs Temp Pulse Resp BP Pulse Ox 07/08/19 10:29 98.1 F 103 16 134/88 98 07/08/19 08:30 98 07/08/19 06:40 98.3 F 105 16 130/90 99 07/08/19 03:41 98.5 F 107 18 152/97 98 Intake and Output 07/08/19 07/08/19 07/08/19 07:59 15:59 23:59 Intake Total 100 / 100 Output Total 500 / 1400 900 / 1400 Balance -400 / -1300 -900 / -1300 Intake: IV Fluids 100 / 100 Merrem 1,000 MG In 0.9 % Sodium 100 / 100 Chloride (Mini-Bag +) 100 ML @ 200 mls/hr IVPB Q8HR [facility] Rx#: [id number] Output: Urine 500 / 1400 900 / 1400 Wound Drainage 0 / 0 Right Hip 0 / 0 Other: Meal Breakfast Percent of Meal Consumed 50% Stool Size Small Copious Stool Consistency soft formed Stool Characteristics Normal for Patient Stool Color Brown Brown # Urine Diapers 1 # Bowel Movements 1 # Bowel Movement Diapers 1 Weight 107 kg Blood Glucose* 141 Patient Weight 07/08/19 23:59 Weight 107 kg - Labs CBC & BMP: 07/08/19 07:47 07/08/19 07:47 Labs: Abnormal lab results WBC 11.4 K/mcL (4.3-11.1) H 07/08/19 07:47 RBC 3.20 M/mcL (4.19-5.50) L 07/08/19 07:47 Hgb 8.8 g/dL (12.9-16.9) L 07/08/19 07:47 Hct 28.4 % (37.5-50.1) L 07/08/19 07:47 MCH 27.5 pg (28.0-33.3) L 07/08/19 07:47 MCHC 31.0 g/dL (31.6-35.5) L 07/08/19 07:47 Plt Count 436 K/mcL (140-400) H 07/01/19 20:44 MPV 9.0 fL (9.4-12.4) L 07/08/19 07:47 Immature Gran % 4.1 % (0-4) H 07/08/19 07:47 Neutrophils # 9.1 K/mcL (1.6-8.9) H 07/01/19 20:44 Anisocytosis 1+ (Not Present) A 07/01/19 20:44 Microcytosis Present (Not Present) A 07/01/19 20:44 ESR 44 mm/hr (0-10) H 07/01/19 19:08 Sodium 132 mEq/L (136-145) L 07/08/19 07:47 Carbon Dioxide 21 mEq/L (23-29) L 07/08/19 07:47 Creatinine 0.67 mg/dL (0.70-1.30) L 07/08/19 07:47 Glucose 113 mg/dL (70-105) H 07/08/19 07:47 POC Glucose 141 mg/dL (70-99) H 07/08/19 10:58 Calculated Osmolality 274 (280-300) L 07/08/19 07:47 C-Reactive Protein 154 mg/L (Less than 10) H 07/01/19 19:08 Ur Specific [place] 1.008 (1.010-1.025) L 07/07/19 10:33 Vancomycin Trough 16 mcg/mL (5-10) H 07/08/19 07:47 Crossmatch See Detail 07/01/19 21:50 Consult Discharge Plan - Plan Instructions: Diabetes Mellitus Type 2 in Adults (DC), Sepsis (DC) Referrals: Blake Bhagat MD [Partnered Physician] - 07/13/19 3:15 pm Kristofer Peacock MD [Primary Care Provider] - Samantha Regan CNP [Advanced Practice Nurse] - 08/02/19 3:00 pm Prescriptions: Meropenem [Merrem] 1,000 mg IVPB Q8HR #111 vial Vancomycin [Vancocin] 1,000 mg IV Q12H #74 vial
--- NOTE | 2019-07-08 23:25 | Event Note ---
Date of Encounter: 07/06/19 Time of Encounter: 12:30 POD#2 s/p Right hip irrigation debridement, revision of femoral component [Infected right hematoma] 07/04/19 Patient seen at bedside. Joyce at bedside. A&Ox3 though patient appears to be somewhat drowsy. Joyce states he recently got pain medication. Dressing is 4 x 4's and ABDs with Medipore tape. This saturated with pink serosanguineous fluid. Drain is in place. No calf tenderness, erythema, or warmth to bilateral lower extremities. Neurovascularly intact b/l LE. Labwork, vitals, and medications reviewed. Pain control: Adequate Participating in therapy. All questions and concerns addressed. Educated on use of incentive spirometer, ambulation, and hydration. Patient educated on post-operative restrictions and care. Addressed: Continue total hip precautions for 6 weeks. Patient to wear hip abduction pillow while sleeping and laying in bed. This will be for 6 weeks postoperatively. Daily dressing changes with 4 x 4's, ABDs, Medipore tape. This includes the drain site. Patient course and disposition discussed with Dr. Bhagat Awaiting ID recommendations for IV antibiotics and Blood culture results in order to place PICC line. Patient is deaf. Interpretive services were used during this visit to facilitate thorough examination and answering of patient's questions. All statements referenced as "discussed " or "informed" relate to discussion with patient via baby counselor.
--- NOTE | 2019-07-08 23:27 | Event Note ---
Date of Encounter: 07/05/19 Time of Encounter: 12:30 POD#1 s/p Right hip irrigation debridement, revision of femoral component [Infected right hematoma] 07/04/19 Patient seen at bedside. Joyce at bedside. A&Ox3 though patient appears to be somewhat drowsy. Joyce states he recently got pain medication. Dressing is 4 x 4's and ABDs with Medipore tape. This saturated with pink serosanguineous fluid. Drain is in place. No calf tenderness, erythema, or warmth to bilateral lower extremities. Neurovascularly intact b/l LE. Labwork, vitals, and medications reviewed. Pain control: Adequate Participating in therapy. All questions and concerns addressed. Educated on use of incentive spirometer, ambulation, and hydration. Patient educated on post-operative restrictions and care. Addressed: Continue total hip precautions for 6 weeks. Patient to wear hip abduction pillow while sleeping and laying in bed. This will be for 6 weeks postoperatively. Daily dressing changes with 4 x 4's, ABDs, Medipore tape. This includes the drain site. Patient course and disposition discussed with Dr. Bhagat Awaiting ID recommendations for IV antibiotics and Blood culture results in order to place PICC line. Patient is deaf. Interpretive services were used during this visit to facilitate thorough examination and answering of patient's questions. All statements referenced as "discussed " or "informed" relate to discussion with patient via alarm service technician.
== END 2019-07-08 17:51 | disposition other institution (70) | DRG 466 ==
LOC: SUATTDRO 17:05 → 3ANU 17:05
PROVIDERS: ADMIT Student in an Organized Health Care Education/Training Program; ATTEND Internal Medicine
PROC: IRDRAIN (2019-07-02 08:30)

== ENCOUNTER 2020-06-04 20:09 | Inpatient (IN) ==
[2020-06-04] MEDS ORDERED: *HR* HYDROmorphone (PF) 1 MG/ML SYRINGE IVP ONE ×2 (20:25→22:47)
[2020-06-04] MEDS ORDERED: Ondansetron 4 MG/2 ML VIAL IVP ONE (20:25)
[2020-06-04 20:56] LABS: Basophils % 0.3 %; Eosinophils # 0.1 K/mcL (0.0-0.6); Eosinophils % 0.4 %; Hematocrit 29.6 % (37.5-50.1); Hemoglobin 8.9 g/dL (12.9-16.9); Immature Granulocytes % 2.8 % (0-4); Lymphocytes # 1.1 K/mcL (0.6-4.6); Lymphocytes % 7.8 %; Mean Corpuscular HGB Conc 30.1 g/dL (31.6-35.5); Mean Corpuscular Hemoglobin 26.3 pg (28.0-33.3); Mean Corpuscular Volume 87.3 fL (83.0-100.0); Mean Platelet Volume 9.9 fL (9.4-12.4); Monocytes # 0.8 K/mcL (0.0-1.3); Monocytes % 5.6 %; Neutrophils # 11.5 K/mcL (1.6-8.9); Platelet Count 223 K/mcL (140-400); Red Blood Count 3.39 M/mcL (4.19-5.50); Red Cell Distribution Width 14.4 % (11.5-14.5); Segmented Neutrophils % 83.1 %; White Blood Count 13.8 K/mcL (4.3-11.1)
[2020-06-04 20:59] LABS: INR 1.1; Prothrombin Time 12.1 Seconds (9.4-12.1)
[2020-06-04 21:13] LABS: BUN/Creatinine Ratio 17 (6-26); Blood Urea Nitrogen 23 mg/dL (6-20); Calcium 8.8 mg/dL (8.6-10.3); Carbon Dioxide 18 mEq/L (23-29); Chloride 102 mEq/L (98-107); Glucose 333 mg/dL (70-105); Osmolality,Calculated 289 (280-300); Potassium 4.5 mEq/L (3.5-5.1); Sodium 131 mEq/L (136-145); eGFR For African Americans > 60 (> 60); eGFR For Non-African Americans 56 (> 60)
[2020-06-04] MEDS ORDERED: 0.9 % Sodium Chloride 1,000 ML IV ONE (22:06)
[2020-06-05] MEDS ORDERED: Naloxone 0.4 MG/ML INJ IVP PRN (00:09)
[2020-06-05] MEDS ORDERED: Ondansetron 4 MG/2 ML VIAL IVP PRN (00:09)
[2020-06-05] MEDS ORDERED: 0.9 % Sodium Chloride 1,000 ML IVC SCH (00:15)
[2020-06-05] MEDS ORDERED: *HR* Dextrose 50 % in Water (Vial) 50 ML VIAL IVP PRN (00:32)
[2020-06-05] MEDS ORDERED: D5% in Water 1,000 ML IVC PRN (00:32)
[2020-06-05] MEDS ORDERED: Dextrose Gel 15 GM/37.5 ML TUBE PO PRN ×2 (00:32)
[2020-06-05] MEDS: *HR* OxyCODONE Immed Rel 5 MG TABLET PO PRN ×2 (04:05→10:42)
[2020-06-05] MEDS ORDERED: *HR* HYDROmorphone (PF) 1 MG/ML SYRINGE IVP PRN ×2 (06:04→14:55)
[2020-06-05 06:53] LABS: Prothrombin Time 11.8 Seconds (9.4-12.1)
[2020-06-05 06:56] LABS: Basophils % 0.3 %; Eosinophils # 0.1 K/mcL (0.0-0.6); Eosinophils % 1.2 %; Hematocrit 29.6 % (37.5-50.1); Hemoglobin 8.7 g/dL (12.9-16.9); Immature Granulocytes % 1.8 % (0-4); Lymphocytes # 1.1 K/mcL (0.6-4.6); Mean Corpuscular HGB Conc 29.4 g/dL (31.6-35.5); Mean Corpuscular Hemoglobin 25.9 pg (28.0-33.3); Mean Corpuscular Volume 88.1 fL (83.0-100.0); Mean Platelet Volume 10.4 fL (9.4-12.4); Monocytes # 0.7 K/mcL (0.0-1.3); Monocytes % 7.6 %; Neutrophils # 7.2 K/mcL (1.6-8.9); Platelet Count 208 K/mcL (140-400); Red Blood Count 3.36 M/mcL (4.19-5.50); Red Cell Distribution Width 14.2 % (11.5-14.5); Segmented Neutrophils % 77.1 %; White Blood Count 9.3 K/mcL (4.3-11.1)
[2020-06-05 07:12] LABS: % Iron Saturation 13 % (20-55); Alanine Aminotransferase 4 Units/L (7-52); Albumin 3.3 g/dL (3.5-5.7); Albumin/Globulin Ratio 1.1 (1.1-2.2); Alkaline Phosphatase 147 Units/L (34-104); Aspartate Amino Transferase 12 Units/L (13-39); BUN/Creatinine Ratio 18 (6-26); Bilirubin,Total 0.2 mg/dL (0.3-1.0); Blood Urea Nitrogen 20 mg/dL (6-20); Calcium 8.9 mg/dL (8.6-10.3); Carbon Dioxide 18 mEq/L (23-29); Chloride 104 mEq/L (98-107); Globulin 3.1 g/dL (2.4-3.5); Glucose 297 mg/dL (70-105); Iron 28 mcg/dL (65-175); Magnesium 1.5 mg/dL (1.6-2.6); Osmolality,Calculated 286 (280-300); Phosphorous 3.7 mg/dL (2.7-4.5); Potassium 4.3 mEq/L (3.5-5.1); Sodium 131 mEq/L (136-145); Total Protein 6.4 g/dL (6.4-8.9); Transferrin 155 mg/dL (203-362); eGFR For African Americans > 60 (> 60); eGFR For Non-African Americans > 60 (> 60)
[2020-06-05] MEDS ORDERED: clonazePAM 1 MG TABLET PO PRN (07:18)
[2020-06-05 07:20] LABS: Ferritin 738 ng/mL (20-250)
[2020-06-05 07:31] LABS: Folate > 22.3 ng/mL (3.0-16.0); Vitamin B12 507 pg/mL (250-1100)
[2020-06-05] MEDS: QUEtiapine Fumarate 300 MG TABLET PO SCH (08:57)
[2020-06-05] MEDS: allopurinoL 100 MG TABLET PO SCH ×2 (08:57→22:27)
[2020-06-05] MEDS: Insulin LISPRO 300 UNITS/3 ML VIAL SQ SCH ×3 (08:57→17:56)
[2020-06-05] MEDS: DilTIAZem CD (24hr) 240 MG CAP.ER.24H PO SCH (08:57)
[2020-06-05] MEDS: Ziprasidone 80 MG CAPSULE PO SCH ×2 (08:57→22:27)
[2020-06-05 09:29] LABS: Estimated Average Glucose 240 mg/dl
[2020-06-05] MEDS: Prenatal Vit/FA 1 EACH TABLET PO SCH (10:32)
[2020-06-05] MEDS ORDERED: Insulin LISPRO 300 UNITS/3 ML VIAL SQ SCH ×2 (21:00)
[2020-06-05] MEDS: METHAZOLAMIDE PO SCH (22:27)
[2020-06-06] MEDS: QUEtiapine Fumarate 300 MG TABLET PO SCH ×3 (00:09→22:49)
[2020-06-06] MEDS: *HR* OxyCODONE Immed Rel 5 MG TABLET PO PRN (05:10)
[2020-06-06 07:02] LABS: Basophils % 0.5 %; Eosinophils # 0.3 K/mcL (0.0-0.6); Hematocrit 29.7 % (37.5-50.1); Hemoglobin 8.9 g/dL (12.9-16.9); Immature Granulocytes % 1.3 % (0-4); Lymphocytes # 1.7 K/mcL (0.6-4.6); Lymphocytes % 20.1 %; Mean Corpuscular Hemoglobin 26.4 pg (28.0-33.3); Mean Corpuscular Volume 88.1 fL (83.0-100.0); Monocytes # 0.7 K/mcL (0.0-1.3); Monocytes % 8.1 %; Neutrophils # 5.6 K/mcL (1.6-8.9); Platelet Count 199 K/mcL (140-400); Red Blood Count 3.37 M/mcL (4.19-5.50); Red Cell Distribution Width 14.3 % (11.5-14.5); White Blood Count 8.3 K/mcL (4.3-11.1)
[2020-06-06 07:26] LABS: BUN/Creatinine Ratio 13 (6-26); Blood Urea Nitrogen 12 mg/dL (6-20); Calcium 8.7 mg/dL (8.6-10.3); Carbon Dioxide 19 mEq/L (23-29); Chloride 107 mEq/L (98-107); Glucose 197 mg/dL (70-105); Osmolality,Calculated 283 (280-300); Potassium 4.1 mEq/L (3.5-5.1); Sodium 134 mEq/L (136-145); eGFR For African Americans > 60 (> 60); eGFR For Non-African Americans > 60 (> 60)
[2020-06-06] MEDS: Insulin LISPRO 300 UNITS/3 ML VIAL SQ SCH ×3 (08:20→22:51)
[2020-06-06] MEDS: Ziprasidone 80 MG CAPSULE PO SCH ×2 (08:53→22:50)
[2020-06-06] MEDS: allopurinoL 100 MG TABLET PO SCH ×2 (08:53→22:50)
[2020-06-06] MEDS: DilTIAZem CD (24hr) 240 MG CAP.ER.24H PO SCH (08:53)
[2020-06-06] MEDS: Prenatal Vit/FA 1 EACH TABLET PO SCH (08:53)
[2020-06-06] MEDS: METHAZOLAMIDE PO SCH ×2 (08:54→22:52)
[2020-06-06] MEDS ORDERED: *HR* FentaNYL (PF) 100 MCG/2 ML VIAL ONE ×2 (09:39→11:28)
[2020-06-06] MEDS ORDERED: *HR* Midazolam HCl 2 MG/2 ML VIAL ONE (09:40)
[2020-06-06] MEDS ORDERED: *HR* Propofol 200 MG/20 ML VIAL IVP ONE (09:41)
[2020-06-06] MEDS ORDERED: Dexamethasone 4 MG/ML VIAL ONE (09:43)
[2020-06-06] MEDS ORDERED: Ethanol\\Acetic Acid\\Na Ace\\Ben 1,000 ML IRRIG.SOLN IR ONE (09:43)
[2020-06-06] MEDS ORDERED: Ondansetron 4 MG/2 ML VIAL ONE (09:43)
[2020-06-06] MEDS ORDERED: Lidocaine -MPF 2% 2 ML VIAL ONE (09:43)
[2020-06-06] MEDS ORDERED: *HR* Rocuronium Bromide 50 MG/5 ML VIAL ONE (09:43)
[2020-06-06] MEDS ORDERED: Vancomycin 1,000 MG VIAL ONE (09:43)
[2020-06-06] MEDS ORDERED: Ondansetron 4 MG/2 ML VIAL IVP ONE ×2 (10:26→14:26)
[2020-06-06] MEDS ORDERED: *HR* Meperidine 25 MG/ML SYRINGE IVP PRN ×2 (10:26→14:26)
[2020-06-06] MEDS ORDERED: Tranexamic Acid 1,000 MG/10 ML VIAL ONE (10:33)
[2020-06-06] MEDS ORDERED: *HR* HYDROMORPHONE 2 MG/ML VIAL ONE ×2 (11:00→11:14)
[2020-06-06] MEDS ORDERED: Ketorolac 30 MG/ML VIAL ONE (12:15)
[2020-06-06] MEDS ORDERED: Acetaminophen IV 1,000 MG/100 ML INFUS..BTL ONE (12:37)
[2020-06-06] MEDS: *HR* HYDROmorphone PF 0.5 MG/0.5 ML SYRINGE IVP PRN ×2 (12:57→13:04)
[2020-06-06 13:48] LABS: Hematocrit 28.3 % (37.5-50.1); Hemoglobin 8.5 g/dL (12.9-16.9)
[2020-06-06] MEDS ORDERED: clonazePAM 1 MG TABLET PO PRN (14:26)
[2020-06-06] MEDS ORDERED: Ringers Solution, Lactated 1,000 ML IVC SCH (14:26)
[2020-06-06] MEDS ORDERED: *HR* HYDROmorphone (PF) 1 MG/ML SYRINGE IVP PRN (14:26)
[2020-06-06] MEDS ORDERED: Dextrose Gel 15 GM/37.5 ML TUBE PO PRN ×2 (14:26)
[2020-06-06] MEDS ORDERED: *HR* Dextrose 50 % in Water (Vial) 50 ML VIAL IVP PRN (14:26)
[2020-06-06] MEDS ORDERED: Sennosides 8.6 MG TABLET PO PRN (14:26)
[2020-06-06] MEDS ORDERED: *HR* Promethazine 25 MG/ML VIAL IVP PRN (14:26)
[2020-06-06] MEDS ORDERED: MOM Conc 10 ML UD.LIQ PO PRN (14:26)
[2020-06-06] MEDS ORDERED: *HR* HYDROmorphone PF 0.5 MG/0.5 ML SYRINGE IVP PRN (14:26)
[2020-06-06] MEDS ORDERED: *HR* OxyCODONE Immed Rel 5 MG TABLET PO PRN (14:26)
[2020-06-06] MEDS ORDERED: Naloxone 0.4 MG/ML INJ IVP PRN ×2 (14:26)
[2020-06-06] MEDS ORDERED: Ondansetron 4 MG/2 ML VIAL IVP PRN ×2 (14:26)
[2020-06-06] MEDS ORDERED: D5% in Water 1,000 ML IVC PRN (14:26)
[2020-06-06] MEDS: Ascorbic Acid 500 MG TABLET PO SCH (16:56)
[2020-06-06] MEDS ORDERED: *HR* Heparin 5,000 UNIT/ML VIAL SQ SCH (18:00)
[2020-06-06] MEDS: ceFAZolin 3,000 MG in 0.9 % Sodium Chloride 100 ML IVPB SCH (18:21)
[2020-06-06] MEDS ORDERED: Insulin DETEMIR 100 UNIT/ML X5UNITS SQ SCH (21:00)
[2020-06-06] MEDS: Insulin DETEMIR 100 UNIT/ML X5UNITS SQ SCH (22:51)
[2020-06-07] MEDS: ceFAZolin 3,000 MG in 0.9 % Sodium Chloride 100 ML IVPB SCH (01:59)
[2020-06-07 02:00] LABS: Basophils % 0.1 %; Hematocrit 27.2 % (37.5-50.1); Hemoglobin 8.1 g/dL (12.9-16.9); Immature Granulocytes % 1.8 % (0-4); Lymphocytes # 0.9 K/mcL (0.6-4.6); Lymphocytes % 9.2 %; Mean Corpuscular HGB Conc 29.8 g/dL (31.6-35.5); Mean Corpuscular Hemoglobin 26.3 pg (28.0-33.3); Mean Corpuscular Volume 88.3 fL (83.0-100.0); Mean Platelet Volume 10.3 fL (9.4-12.4); Monocytes # 0.6 K/mcL (0.0-1.3); Monocytes % 6.2 %; Neutrophils # 8.3 K/mcL (1.6-8.9); Platelet Count 223 K/mcL (140-400); Red Blood Count 3.08 M/mcL (4.19-5.50); Red Cell Distribution Width 14.1 % (11.5-14.5); Segmented Neutrophils % 82.7 %
[2020-06-07 02:17] LABS: BUN/Creatinine Ratio 14 (6-26); Blood Urea Nitrogen 18 mg/dL (6-20); Calcium 8.1 mg/dL (8.6-10.3); Carbon Dioxide 17 mEq/L (23-29); Chloride 102 mEq/L (98-107); Glucose 262 mg/dL (70-105); Osmolality,Calculated 279 (280-300); Potassium 4.7 mEq/L (3.5-5.1); Sodium 129 mEq/L (136-145); eGFR For African Americans > 60 (> 60); eGFR For Non-African Americans > 60 (> 60)
[2020-06-07] MEDS: Aspirin Enteric Coated 81 MG Tablet PO SCH (08:07)
[2020-06-07] MEDS: Insulin LISPRO 300 UNITS/3 ML VIAL SQ SCH ×4 (08:07→20:39)
[2020-06-07] MEDS: Ascorbic Acid 500 MG TABLET PO SCH ×2 (08:08→17:02)
[2020-06-07] MEDS: QUEtiapine Fumarate 300 MG TABLET PO SCH ×2 (08:08→20:38)
[2020-06-07] MEDS: Prenatal Vit/FA 1 EACH TABLET PO SCH (08:08)
[2020-06-07] MEDS: Ziprasidone 80 MG CAPSULE PO SCH ×2 (08:08→20:38)
[2020-06-07] MEDS: allopurinoL 100 MG TABLET PO SCH ×2 (08:08→20:38)
[2020-06-07] MEDS: METHAZOLAMIDE PO SCH ×2 (08:09→20:39)
[2020-06-07] MEDS ORDERED: Multivit/Ca/Min/Fe/FA 1 TAB TABLET PO SCH (09:00)
[2020-06-07] MEDS ORDERED: DilTIAZem CD (24hr) 240 MG CAP.ER.24H PO SCH (09:00)
[2020-06-07] MEDS ORDERED: *HR* OxyCODONE/APAP 10/325 TABLET PO PRN ×2 (10:49→12:35)
[2020-06-07] MEDS ORDERED: 0.9 % Sodium Chloride 1,000 ML IVC SCH (14:30)
[2020-06-07] MEDS: Insulin DETEMIR 100 UNIT/ML X5UNITS SQ SCH (20:38)
[2020-06-08 00:57] LABS: Basophils % 0.1 %; Eosinophils # 0.2 K/mcL (0.0-0.6); Eosinophils % 2.3 %; Hematocrit 24.1 % (37.5-50.1); Hemoglobin 7.3 g/dL (12.9-16.9); Immature Granulocytes % 1.5 % (0-4); Lymphocytes % 22.2 %; Mean Corpuscular HGB Conc 30.3 g/dL (31.6-35.5); Mean Corpuscular Hemoglobin 26.9 pg (28.0-33.3); Mean Corpuscular Volume 88.9 fL (83.0-100.0); Mean Platelet Volume 9.8 fL (9.4-12.4); Monocytes # 0.8 K/mcL (0.0-1.3); Monocytes % 9.5 %; Neutrophils # 5.7 K/mcL (1.6-8.9); Platelet Count 182 K/mcL (140-400); Red Blood Count 2.71 M/mcL (4.19-5.50); Red Cell Distribution Width 14.4 % (11.5-14.5); Segmented Neutrophils % 64.4 %; White Blood Count 8.9 K/mcL (4.3-11.1)
[2020-06-08 01:16] LABS: BUN/Creatinine Ratio 16 (6-26); Blood Urea Nitrogen 18 mg/dL (6-20); Calcium 8.4 mg/dL (8.6-10.3); Carbon Dioxide 19 mEq/L (23-29); Chloride 107 mEq/L (98-107); Glucose 205 mg/dL (70-105); Osmolality,Calculated 286 (280-300); Potassium 4.1 mEq/L (3.5-5.1); Sodium 134 mEq/L (136-145); eGFR For African Americans > 60 (> 60); eGFR For Non-African Americans > 60 (> 60)
[2020-06-08] MEDS: Prenatal Vit/FA 1 EACH TABLET PO SCH (08:41)
[2020-06-08] MEDS: allopurinoL 100 MG TABLET PO SCH (08:41)
[2020-06-08] MEDS: Aspirin Enteric Coated 81 MG Tablet PO SCH (08:41)
[2020-06-08] MEDS: Ziprasidone 80 MG CAPSULE PO SCH (08:42)
[2020-06-08] MEDS: Insulin LISPRO 300 UNITS/3 ML VIAL SQ SCH ×2 (08:42→12:13)
[2020-06-08] MEDS: Ascorbic Acid 500 MG TABLET PO SCH (08:42)
[2020-06-08] MEDS: QUEtiapine Fumarate 300 MG TABLET PO SCH (08:42)
[2020-06-08] MEDS: METHAZOLAMIDE PO SCH (08:49)
[2020-06-08] MEDS ORDERED: DilTIAZem CD (24hr) 180 MG CAP.ER.24H PO SCH (09:00)
[2020-06-08] MEDS ORDERED: Metoprolol XL (24 HR) Succ 25 MG TAB.ER.24H PO SCH (09:00)
[2020-06-08] MEDS ORDERED: 0.9 % Sodium Chloride 250 ML ONE (12:48)
[2020-06-08 16:02] VITALS: BP 136/90
== END 2020-06-08 18:09 | disposition home health service (06) | DRG 470 ==
LOC: EMEROOARM 20:09 → 3NENU 20:09 → SUATTDRO 06-05 13:26
PROVIDERS: ADMIT Student in an Organized Health Care Education/Training Program; ATTEND Internal Medicine

== ENCOUNTER 2020-12-14 15:41 | Inpatient (IN) ==
[2020-12-14] MEDS ORDERED: 0.9 % Sodium Chloride 1,000 ML IVC ONE (16:11)
[2020-12-14] MEDS ORDERED: Ondansetron 4 MG/2 ML VIAL IVP ONE (16:11)
[2020-12-14 17:56] LABS: Basophils % 0.4 %; Eosinophils # 0.1 K/mcL (0.0-0.6); Eosinophils % 1.7 %; Hematocrit 31.1 % (37.5-50.1); Immature Granulocytes % 0.9 % (0-4); Lymphocytes % 16.4 %; Mean Corpuscular HGB Conc 28.9 g/dL (31.6-35.5); Mean Corpuscular Hemoglobin 26.4 pg (28.0-33.3); Mean Corpuscular Volume 91.2 fL (83.0-100.0); Mean Platelet Volume 10.9 fL (9.4-12.4); Monocytes # 0.6 K/mcL (0.0-1.3); Monocytes % 7.1 %; Platelet Count 248 K/mcL (140-400); Red Blood Count 3.41 M/mcL (4.19-5.50); Red Cell Distribution Width 14.5 % (11.5-14.5); Segmented Neutrophils % 73.5 %; White Blood Count 8.2 K/mcL (4.3-11.1)
[2020-12-14 17:57] LABS: Anisocytosis 1+ (Not Present); Hypochromasia Present (Not Present); Lymphocytes # 1.3 K/mcL (0.6-4.6); Platelet Estimate Normal (Normal)
[2020-12-14 18:05] LABS: Alanine Aminotransferase 6 Units/L (7-52); Albumin 3.2 g/dL (3.5-5.7); Albumin/Globulin Ratio 0.9 (1.1-2.2); Alkaline Phosphatase 183 Units/L (34-104); Aspartate Amino Transferase 20 Units/L (13-39); BUN/Creatinine Ratio 25 (6-26); Bilirubin,Total 0.2 mg/dL (0.3-1.0); Blood Urea Nitrogen 30 mg/dL (6-20); Calcium 9.2 mg/dL (8.6-10.3); Carbon Dioxide 22 mEq/L (23-29); Chloride 104 mEq/L (98-107); Globulin 3.7 g/dL (2.4-3.5); Glucose 189 mg/dL (70-105); Osmolality,Calculated 295 (280-300); Potassium 4.1 mEq/L (3.5-5.1); Sodium 137 mEq/L (136-145); Total Protein 6.9 g/dL (6.4-8.9); Troponin I < 0.03 ng/mL (< 0.04); eGFR For African Americans > 60 (> 60); eGFR For Non-African Americans > 60 (> 60)
[2020-12-14] MEDS ORDERED: Morphine Sulfate 2 MG/ML SYRINGE IVP ONE (18:45)
[2020-12-14] MEDS ORDERED: cefTRIAXone 1,000 MG in Water for inj. (sterile) 10 ML IVP ONE (18:53)
[2020-12-14] MEDS ORDERED: Azithromycin 500 MG in 0.9 % Sodium Chloride 250 ML IVPB ONE (18:53)
[2020-12-14] MEDS ORDERED: Naloxone 0.4 MG/ML INJ IVP PRN (20:21)
[2020-12-14] MEDS ORDERED: 0.9 % Sodium Chloride 1,000 ML IVC SCH (20:30)
[2020-12-14] MEDS: Metoclopramide 10 MG/2 ML VIAL IVP PRN (20:56)
[2020-12-14 21:40] LABS: Adenovirus Not Detected (Not Detect); Coronavirus 229E Not Detected (Not Detect)
[2020-12-14 21:41] LABS: Bordetella Pertussis Not Detected (Not Detect); Chlamydophila pneumoniae Not Detected (Not Detect); Coronavirus HKU1 Not Detected (Not Detect); Coronavirus NL63 Not Detected (Not Detect); Coronavirus OC43 Not Detected (Not Detect); Human Metapneumovirus Not Detected (Not Detect); Human Rhinovirus/Enterovirus Not Detected (Not Detect); Influenza A Subtype 2009 H1 Not Detected (Not Detect); Influenza B Not Detected (Not Detect); Mycoplasma pneumoniae Not Detected (Not Detect); Parainfluenza Virus 1 Not Detected (Not Detect); Parainfluenza Virus 2 Not Detected (Not Detect); Parainfluenza Virus 3 Not Detected (Not Detect); Parainfluenza Virus 4 Not Detected (Not Detect); Respiratory Syncytial Virus Not Detected (Not Detect); SARS-CoV-2 Not Detected (Not Detect)
[2020-12-15 00:48] LABS: Red Cell Distribution Width 14.6 % (11.5-14.5)
[2020-12-15 00:49] LABS: Hematocrit 27.6 % (37.5-50.1); Hemoglobin 8.1 g/dL (12.9-16.9); Mean Corpuscular HGB Conc 29.3 g/dL (31.6-35.5); Mean Corpuscular Hemoglobin 27.3 pg (28.0-33.3); Mean Corpuscular Volume 92.9 fL (83.0-100.0); Mean Platelet Volume 10.8 fL (9.4-12.4); Platelet Count 240 K/mcL (140-400); Red Blood Count 2.97 M/mcL (4.19-5.50); White Blood Count 7.9 K/mcL (4.3-11.1)
[2020-12-15 01:09] LABS: BUN/Creatinine Ratio 24 (6-26); Blood Urea Nitrogen 25 mg/dL (6-20); C-Reactive Protein 94 mg/L (Less than 10); Carbon Dioxide 22 mEq/L (23-29); Chloride 107 mEq/L (98-107); Glucose 150 mg/dL (70-105); Lactate Dehydrogenase 101 Units/L (140-271); Magnesium 1.7 mg/dL (1.6-2.6); Osmolality,Calculated 295 (280-300); Potassium 3.4 mEq/L (3.5-5.1); Sodium 139 mEq/L (136-145); eGFR For African Americans > 60 (> 60); eGFR For Non-African Americans > 60 (> 60)
[2020-12-15 01:25] LABS: Ferritin 436 ng/mL (20-250)
[2020-12-15] MEDS: Ketorolac 15 MG/ML VIAL IVP PRN ×3 (01:31→16:04)
[2020-12-15] MEDS ORDERED: *HR* Enoxaparin 120 MG/0.8 ML SYRINGE SQ SCH (02:00)
[2020-12-15] MEDS: Metoclopramide 10 MG/2 ML VIAL IVP PRN ×2 (09:59→16:04)
[2020-12-15] MEDS ORDERED: Ketorolac 15 MG/ML VIAL IVP PRN (17:54)
[2020-12-16] MEDS: cefTRIAXone 2,000 MG in 0.9 % Sodium Chloride Mini Bag 100 ML IVPB SCH ×2 (00:31→23:28)
[2020-12-16] MEDS: clonazePAM 1 MG TABLET GTUBE SCH ×5 (00:37→21:47)
[2020-12-16] MEDS: METHAZOLAMIDE PO SCH ×3 (00:38→21:47)
[2020-12-16] MEDS: *HR* Enoxaparin 40 MG/0.4 ML SYRINGE SQ SCH (05:20)
[2020-12-16 07:00] LABS: Basophils # 0.1 K/mcL (0.0-0.2); Basophils % 0.9 %; Eosinophils # 0.2 K/mcL (0.0-0.6); Eosinophils % 2.3 %; Hematocrit 29.2 % (37.5-50.1); Hemoglobin 8.7 g/dL (12.9-16.9); Immature Granulocytes % 0.9 % (0-4); Lymphocytes # 2.4 K/mcL (0.6-4.6); Lymphocytes % 35.1 %; Mean Corpuscular HGB Conc 29.8 g/dL (31.6-35.5); Mean Corpuscular Hemoglobin 27.4 pg (28.0-33.3); Mean Corpuscular Volume 92.1 fL (83.0-100.0); Mean Platelet Volume 10.2 fL (9.4-12.4); Monocytes # 0.7 K/mcL (0.0-1.3); Monocytes % 9.7 %; Neutrophils # 3.5 K/mcL (1.6-8.9); Nucleated Red Blood Cells 0.3 /100 WBC (0); Platelet Count 270 K/mcL (140-400); Red Blood Count 3.17 M/mcL (4.19-5.50); Red Cell Distribution Width 14.6 % (11.5-14.5); Segmented Neutrophils % 51.1 %; White Blood Count 6.9 K/mcL (4.3-11.1)
[2020-12-16 07:20] LABS: BUN/Creatinine Ratio 23 (6-26); Blood Urea Nitrogen 27 mg/dL (6-20); Calcium 9.2 mg/dL (8.6-10.3); Carbon Dioxide 24 mEq/L (23-29); Chloride 109 mEq/L (98-107); Glucose 102 mg/dL (70-105); Osmolality,Calculated 301 (280-300); Potassium 3.3 mEq/L (3.5-5.1); Sodium 143 mEq/L (136-145); eGFR For African Americans > 60 (> 60); eGFR For Non-African Americans > 60 (> 60)
[2020-12-16] MEDS ORDERED: Potassium Chloride 40 MEQ, Lidocaine 1% 2 ML in 0.9 % Sodium Chloride 500 ML IVPB ONE (08:15)
[2020-12-16] MEDS: Doxycycline 100 MG in 0.9 % Sodium Chloride Mini Bag 100 ML IVPB SCH (21:47)
[2020-12-16 22:01] LABS: Bacteria,Urine Few per hpf (None-Few); Bilirubin,Urine Negative (Negative); Blood,Urine Moderate (Negative); Clarity,Urine Clear (Clear); Color,Urine Yellow (Yellow); Glucose,Urine (UA) Normal (Normal); Hyaline Casts,Urine Few per lpf (None Seen); Ketones,Urine 60 mg/dL (Negative); Leukocyte Esterase,Urine Negative (Negative); Mucus,Urine Few per lpf (None-Few); Nitrite,Urine Negative (Negative); Protein,Urine >=300 mg/dL (Neg-Trace); RBC,Urine 30-50 per hpf (0-3); Specific Gravity,Urine 1.023 (1.010-1.025); Squamous Epithelial Cell,Urine Few per hpf (None-Few); Urobilinogen,Urine Normal (Normal)
[2020-12-16] MEDS: Latanoprost 2.5 ML BOTTLE BOTH EYES SCH (23:28)
[2020-12-17] MEDS: *HR* Enoxaparin 40 MG/0.4 ML SYRINGE SQ SCH (06:03)
[2020-12-17] MEDS: Doxycycline 100 MG in 0.9 % Sodium Chloride Mini Bag 100 ML IVPB SCH ×2 (08:50→21:36)
[2020-12-17] MEDS: clonazePAM 1 MG TABLET GTUBE SCH ×4 (08:51→21:36)
[2020-12-17] MEDS ORDERED: Lidocaine -MPF 2% 2 ML VIAL ONE (13:02)
[2020-12-17] MEDS ORDERED: *HR* Propofol 200 MG/20 ML VIAL IVP ONE (13:02)
[2020-12-17] MEDS: cefTRIAXone 2,000 MG in 0.9 % Sodium Chloride Mini Bag 100 ML IVPB SCH (21:36)
[2020-12-17] MEDS: Latanoprost 2.5 ML BOTTLE BOTH EYES SCH (21:39)
[2020-12-17 22:13] LABS: BUN/Creatinine Ratio 22 (6-26); Blood Urea Nitrogen 25 mg/dL (6-20); Calcium 9.1 mg/dL (8.6-10.3); Carbon Dioxide 22 mEq/L (23-29); Chloride 115 mEq/L (98-107); Glucose 108 mg/dL (70-105); Magnesium 1.8 mg/dL (1.6-2.6); Osmolality,Calculated 317 (280-300); Potassium 3.6 mEq/L (3.5-5.1); Sodium 151 mEq/L (136-145); eGFR For African Americans > 60 (> 60); eGFR For Non-African Americans > 60 (> 60)
[2020-12-18 01:31] LABS: Basophils % 0.5 %; Eosinophils # 0.2 K/mcL (0.0-0.6); Eosinophils % 2.7 %; Hematocrit 28.5 % (37.5-50.1); Hemoglobin 8.3 g/dL (12.9-16.9); Lymphocytes # 2.1 K/mcL (0.6-4.6); Lymphocytes % 25.8 %; Mean Corpuscular HGB Conc 29.1 g/dL (31.6-35.5); Mean Corpuscular Hemoglobin 27.6 pg (28.0-33.3); Mean Corpuscular Volume 94.7 fL (83.0-100.0); Mean Platelet Volume 10.2 fL (9.4-12.4); Monocytes # 0.9 K/mcL (0.0-1.3); Monocytes % 11.1 %; Neutrophils # 4.8 K/mcL (1.6-8.9); Platelet Count 232 K/mcL (140-400); Red Blood Count 3.01 M/mcL (4.19-5.50); Red Cell Distribution Width 14.9 % (11.5-14.5); Segmented Neutrophils % 58.9 %; White Blood Count 8.2 K/mcL (4.3-11.1)
[2020-12-18 01:49] LABS: BUN/Creatinine Ratio 23 (6-26); Blood Urea Nitrogen 25 mg/dL (6-20); Calcium 9.2 mg/dL (8.6-10.3); Carbon Dioxide 23 mEq/L (23-29); Chloride 115 mEq/L (98-107); Glucose 98 mg/dL (70-105); Magnesium 1.8 mg/dL (1.6-2.6); Osmolality,Calculated 318 (280-300); Potassium 3.5 mEq/L (3.5-5.1); Sodium 152 mEq/L (136-145); eGFR For African Americans > 60 (> 60); eGFR For Non-African Americans > 60 (> 60)
[2020-12-18] MEDS: *HR* Enoxaparin 40 MG/0.4 ML SYRINGE SQ SCH (05:01)
[2020-12-18] MEDS ORDERED: Isovue-370 500 ML BOTTLE IVP ONE (08:49)
[2020-12-18] MEDS ORDERED: Magnesium Sulfate 1 GM/102 ML PIGGYBACK IVPB ONE (09:53)
[2020-12-18] MEDS: D5% in Water 1,000 ML IVC SCH ×4 (11:38→23:30)
[2020-12-18] MEDS: clonazePAM 1 MG TABLET GTUBE SCH ×4 (11:41→20:18)
[2020-12-18 11:58] LABS: BUN/Creatinine Ratio 23 (6-26); Blood Urea Nitrogen 25 mg/dL (6-20); Calcium 9.3 mg/dL (8.6-10.3); Carbon Dioxide 23 mEq/L (23-29); Chloride 114 mEq/L (98-107); Glucose 102 mg/dL (70-105); Osmolality,Calculated 321 (280-300); Potassium 3.4 mEq/L (3.5-5.1); Sodium 153 mEq/L (136-145); eGFR For African Americans > 60 (> 60); eGFR For Non-African Americans > 60 (> 60)
[2020-12-18 13:20] LABS: BUN/Creatinine Ratio 22 (6-26); Blood Urea Nitrogen 25 mg/dL (6-20); Calcium 9.2 mg/dL (8.6-10.3); Carbon Dioxide 25 mEq/L (23-29); Chloride 114 mEq/L (98-107); Glucose 121 mg/dL (70-105); Osmolality,Calculated 322 (280-300); Potassium 3.5 mEq/L (3.5-5.1); Sodium 153 mEq/L (136-145); eGFR For African Americans > 60 (> 60); eGFR For Non-African Americans > 60 (> 60)
[2020-12-18 16:18] LABS: BUN/Creatinine Ratio 24 (6-26); Blood Urea Nitrogen 25 mg/dL (6-20); Calcium 9.2 mg/dL (8.6-10.3); Carbon Dioxide 26 mEq/L (23-29); Chloride 113 mEq/L (98-107); Glucose 141 mg/dL (70-105); Osmolality,Calculated 319 (280-300); Potassium 3.5 mEq/L (3.5-5.1); Sodium 151 mEq/L (136-145); eGFR For African Americans > 60 (> 60); eGFR For Non-African Americans > 60 (> 60)
[2020-12-18] MEDS: Doxycycline 100 MG in 0.9 % Sodium Chloride Mini Bag 100 ML IVPB SCH ×2 (16:32→23:04)
[2020-12-18 16:58] LABS: Adenovirus Not Detected (Not Detect); Bordetella Pertussis Not Detected (Not Detect); Chlamydophila pneumoniae Not Detected (Not Detect); Coronavirus 229E Not Detected (Not Detect); Coronavirus HKU1 Not Detected (Not Detect); Coronavirus NL63 Not Detected (Not Detect); Coronavirus OC43 Not Detected (Not Detect); Human Metapneumovirus Not Detected (Not Detect); Human Rhinovirus/Enterovirus Not Detected (Not Detect); Influenza A Subtype 2009 H1 Not Detected (Not Detect); Influenza B Not Detected (Not Detect); Mycoplasma pneumoniae Not Detected (Not Detect); Parainfluenza Virus 1 Not Detected (Not Detect); Parainfluenza Virus 2 Not Detected (Not Detect); Parainfluenza Virus 3 Not Detected (Not Detect); Parainfluenza Virus 4 Not Detected (Not Detect); Respiratory Syncytial Virus Not Detected (Not Detect); SARS-CoV-2 Not Detected (Not Detect)
[2020-12-18] MEDS ORDERED: Chloraseptic Spray 177 ML BOTTLE MM PRN (19:05)
[2020-12-18] MEDS ORDERED: Albuterol 2.5 MG/3 ML NEBULIZER IH PRN (19:55)
[2020-12-18] MEDS: Latanoprost 2.5 ML BOTTLE BOTH EYES SCH (20:20)
[2020-12-18] MEDS ORDERED: Ziprasidone 80 MG CAPSULE PO SCH (21:00)
[2020-12-18] MEDS ORDERED: allopurinoL 100 MG TABLET PO SCH (21:00)
[2020-12-18] MEDS ORDERED: QUEtiapine Fumarate 100 MG TABLET PO SCH ×2 (21:00)
[2020-12-18] MEDS: QUEtiapine Fumarate 100 MG TABLET GTUBE SCH (22:01)
[2020-12-18] MEDS: cefTRIAXone 2,000 MG in 0.9 % Sodium Chloride Mini Bag 100 ML IVPB SCH (22:01)
[2020-12-19] MEDS ORDERED: Promethazine Syrup 6.25 MG/5 ML GTUBE PRN
[2020-12-19 04:11] LABS: BUN/Creatinine Ratio 21 (6-26); Blood Urea Nitrogen 22 mg/dL (6-20); Calcium 8.9 mg/dL (8.6-10.3); Carbon Dioxide 30 mEq/L (23-29); Chloride 112 mEq/L (98-107); Glucose 181 mg/dL (70-105); Osmolality,Calculated 314 (280-300); Potassium 3.2 mEq/L (3.5-5.1); Sodium 148 mEq/L (136-145); eGFR For African Americans > 60 (> 60); eGFR For Non-African Americans > 60 (> 60)
[2020-12-19] MEDS: *HR* Enoxaparin 40 MG/0.4 ML SYRINGE SQ SCH (04:30)
[2020-12-19] MEDS: D5% in Water 1,000 ML IVC SCH ×2 (04:30→09:20)
[2020-12-19] MEDS ORDERED: NON-FORMULARY MEDICATION 1 EACH EACH (Bimatoprost [Lumigan] 1 DROP) OP SCH (09:00)
[2020-12-19] MEDS: Ferrous Sulfate Oral Soln 300 MG/5 ML UDC GTUBE SCH ×2 (09:17→17:30)
[2020-12-19] MEDS: allopurinoL 100 MG TABLET GTUBE SCH ×2 (09:18→20:48)
[2020-12-19] MEDS: Docusate Oral Soln 100 MG/10 ML UDC GTUBE SCH ×2 (09:18→20:48)
[2020-12-19] MEDS: QUEtiapine Fumarate 100 MG TABLET GTUBE SCH ×4 (09:18→22:08)
[2020-12-19] MEDS: clonazePAM 1 MG TABLET GTUBE SCH ×4 (09:18→20:48)
[2020-12-19] MEDS: Ziprasidone 80 MG CAPSULE GTUBE SCH ×2 (09:19→20:48)
[2020-12-19] MEDS: Doxycycline 100 MG in 0.9 % Sodium Chloride Mini Bag 100 ML IVPB SCH ×2 (09:25→23:03)
[2020-12-19] MEDS: Furosemide Oral Soln 40 MG/4 ML UDC GTUBE SCH (09:38)
[2020-12-19] MEDS ORDERED: Potassium Chloride 20 MEQ in D5% in Water 1,000 ML IVC SCH (17:45)
[2020-12-19] MEDS ORDERED: *HR* Metoprolol 5 MG/5 ML VIAL IVP PRN (17:45)
[2020-12-19 18:40] LABS: Hematocrit 28.3 % (37.5-50.1); Mean Platelet Volume 10.4 fL (9.4-12.4)
[2020-12-19 18:42] LABS: Basophils # 0.1 K/mcL (0.0-0.2); Basophils % 0.9 %; Eosinophils # 0.3 K/mcL (0.0-0.6); Eosinophils % 5.6 %; Hemoglobin 8.2 g/dL (12.9-16.9); Immature Granulocytes % 0.7 % (0-4); Lymphocytes # 1.7 K/mcL (0.6-4.6); Lymphocytes % 29.2 %; Mean Corpuscular Hemoglobin 27.4 pg (28.0-33.3); Mean Corpuscular Volume 94.6 fL (83.0-100.0); Monocytes # 0.5 K/mcL (0.0-1.3); Monocytes % 8.4 %; Neutrophils # 3.2 K/mcL (1.6-8.9); Nucleated Red Blood Cells 0.4 /100 WBC (0); Platelet Count 215 K/mcL (140-400); Red Blood Count 2.99 M/mcL (4.19-5.50); Red Cell Distribution Width 14.6 % (11.5-14.5); Segmented Neutrophils % 55.2 %; White Blood Count 5.7 K/mcL (4.3-11.1)
[2020-12-19 18:57] LABS: Hypochromasia Present (Not Present); Reactive Lymphocytes Present (Not Present)
[2020-12-19] MEDS: Latanoprost 2.5 ML BOTTLE BOTH EYES SCH (20:49)
[2020-12-19] MEDS: cefTRIAXone 2,000 MG in 0.9 % Sodium Chloride Mini Bag 100 ML IVPB SCH (23:36)
[2020-12-20] MEDS: cefTRIAXone 2,000 MG in Water for inj. (sterile) 20 ML IVP SCH ×2 (00:17→23:50)
[2020-12-20] MEDS: *HR* Enoxaparin 40 MG/0.4 ML SYRINGE SQ SCH (05:55)
[2020-12-20 06:36] LABS: Basophils % 0.6 %; Eosinophils % 5.4 %; Hemoglobin 8.1 g/dL (12.9-16.9); Monocytes % 8.7 %
[2020-12-20 06:38] LABS: Eosinophils # 0.4 K/mcL (0.0-0.6); Hematocrit 28.2 % (37.5-50.1); Immature Granulocytes % 0.6 % (0-4); Lymphocytes # 2.2 K/mcL (0.6-4.6); Lymphocytes % 31.8 %; Mean Corpuscular HGB Conc 28.7 g/dL (31.6-35.5); Mean Platelet Volume 10.4 fL (9.4-12.4); Monocytes # 0.6 K/mcL (0.0-1.3); Neutrophils # 3.7 K/mcL (1.6-8.9); Platelet Count 219 K/mcL (140-400); Red Cell Distribution Width 14.4 % (11.5-14.5); Segmented Neutrophils % 52.9 %; White Blood Count 6.9 K/mcL (4.3-11.1)
[2020-12-20 06:51] LABS: % Iron Saturation 17 % (20-55); Alanine Aminotransferase 4 Units/L (7-52); Albumin 2.8 g/dL (3.5-5.7); Albumin/Globulin Ratio 0.8 (1.1-2.2); Alkaline Phosphatase 107 Units/L (34-104); Aspartate Amino Transferase 12 Units/L (13-39); BUN/Creatinine Ratio 16 (6-26); Bilirubin,Total 0.2 mg/dL (0.3-1.0); Blood Urea Nitrogen 14 mg/dL (6-20); Calcium 8.7 mg/dL (8.6-10.3); Carbon Dioxide 29 mEq/L (23-29); Chloride 108 mEq/L (98-107); Globulin 3.4 g/dL (2.4-3.5); Glucose 145 mg/dL (70-105); Iron 31 mcg/dL (65-175); Osmolality,Calculated 297 (280-300); Phosphorous 3.3 mg/dL (2.7-4.5); Potassium 3.2 mEq/L (3.5-5.1); Sodium 142 mEq/L (136-145); Total Protein 6.2 g/dL (6.4-8.9); Transferrin 129 mg/dL (203-362); eGFR For African Americans > 60 (> 60); eGFR For Non-African Americans > 60 (> 60)
[2020-12-20 07:05] LABS: Hypochromasia Present (Not Present); Platelet Estimate Normal (Normal)
[2020-12-20 07:06] LABS: Anisocytosis 1+ (Not Present)
[2020-12-20 07:40] LABS: Folate > 22.3 ng/mL (3.0-16.0); Vitamin B12 1222 pg/mL (250-1100)
[2020-12-20] MEDS: clonazePAM 1 MG TABLET GTUBE SCH ×2 (08:04→16:34)
[2020-12-20] MEDS: QUEtiapine Fumarate 100 MG TABLET GTUBE SCH ×2 (08:04→16:34)
[2020-12-20] MEDS: Ziprasidone 80 MG CAPSULE GTUBE SCH (08:05)
[2020-12-20] MEDS: Ferrous Sulfate Oral Soln 300 MG/5 ML UDC GTUBE SCH (08:05)
[2020-12-20] MEDS: allopurinoL 100 MG TABLET GTUBE SCH (08:05)
[2020-12-20] MEDS: Docusate Oral Soln 100 MG/10 ML UDC GTUBE SCH (08:06)
[2020-12-20] MEDS: Furosemide Oral Soln 40 MG/4 ML UDC GTUBE SCH (08:06)
[2020-12-20] MEDS ORDERED: Iron Sucrose Complex 400 MG in 0.9 % Sodium Chloride 250 ML IVPB ONE (08:20)
[2020-12-20 10:01] LABS: Ferritin 430 ng/mL (20-250)
[2020-12-20] MEDS ORDERED: Potassium Chloride Elixir 20 MEQ/15 ML UDC GTUBE ONE (10:36)
[2020-12-20] MEDS: Doxycycline 100 MG in 0.9 % Sodium Chloride Mini Bag 100 ML IVPB SCH ×2 (12:24→20:44)
[2020-12-20] MEDS: Ipratropium/Albuterol Neb 3 ML IH SCH ×3 (14:58→21:04)
[2020-12-20] MEDS: QUEtiapine Fumarate 100 MG TABLET PO SCH ×2 (17:43→20:43)
[2020-12-20] MEDS: clonazePAM 1 MG TABLET PO SCH ×2 (17:44→20:44)
[2020-12-20] MEDS: allopurinoL 100 MG TABLET PO SCH (20:43)
[2020-12-20] MEDS: Ziprasidone 80 MG CAPSULE PO SCH (20:44)
[2020-12-20] MEDS: Latanoprost 2.5 ML BOTTLE BOTH EYES SCH (20:46)
[2020-12-21] MEDS: Ipratropium/Albuterol Neb 3 ML IH SCH ×4 (04:24→22:41)
[2020-12-21] MEDS: *HR* Enoxaparin 40 MG/0.4 ML SYRINGE SQ SCH (04:49)
[2020-12-21 05:19] LABS: Mean Platelet Volume 10.9 fL (9.4-12.4); Nucleated Red Blood Cells 0.3 /100 WBC (0); Red Cell Distribution Width 14.3 % (11.5-14.5)
[2020-12-21 05:21] LABS: Basophils # 0.1 K/mcL (0.0-0.2); Basophils % 0.6 %; Eosinophils # 0.3 K/mcL (0.0-0.6); Eosinophils % 3.8 %; Hematocrit 26.7 % (37.5-50.1); Hemoglobin 7.8 g/dL (12.9-16.9); Immature Granulocytes % 0.7 % (0-4); Lymphocytes # 2.6 K/mcL (0.6-4.6); Lymphocytes % 29.1 %; Mean Corpuscular HGB Conc 29.2 g/dL (31.6-35.5); Mean Corpuscular Volume 92.4 fL (83.0-100.0); Monocytes # 0.8 K/mcL (0.0-1.3); Monocytes % 8.5 %; Neutrophils # 5.1 K/mcL (1.6-8.9); Platelet Count 201 K/mcL (140-400); Red Blood Count 2.89 M/mcL (4.19-5.50); Segmented Neutrophils % 57.3 %; White Blood Count 8.9 K/mcL (4.3-11.1)
[2020-12-21 05:33] LABS: Alanine Aminotransferase 4 Units/L (7-52); Albumin 2.7 g/dL (3.5-5.7); Albumin/Globulin Ratio 0.8 (1.1-2.2); Alkaline Phosphatase 104 Units/L (34-104); Aspartate Amino Transferase 12 Units/L (13-39); BUN/Creatinine Ratio 14 (6-26); Bilirubin,Total 0.2 mg/dL (0.3-1.0); Blood Urea Nitrogen 13 mg/dL (6-20); Calcium 8.4 mg/dL (8.6-10.3); Carbon Dioxide 25 mEq/L (23-29); Chloride 106 mEq/L (98-107); Globulin 3.2 g/dL (2.4-3.5); Glucose 136 mg/dL (70-105); Magnesium 1.6 mg/dL (1.6-2.6); Osmolality,Calculated 286 (280-300); Phosphorous 3.2 mg/dL (2.7-4.5); Potassium 3.5 mEq/L (3.5-5.1); Sodium 137 mEq/L (136-145); Total Protein 5.9 g/dL (6.4-8.9); eGFR For African Americans > 60 (> 60); eGFR For Non-African Americans > 60 (> 60)
[2020-12-21 06:52] LABS: Burr Cells 1+ (Not Present); Hypochromasia Present (Not Present); Platelet Estimate Normal (Normal); Poikilocytosis 1+ (Not Present)
[2020-12-21] MEDS: clonazePAM 1 MG TABLET PO SCH ×4 (07:52→21:19)
[2020-12-21] MEDS: QUEtiapine Fumarate 100 MG TABLET PO SCH ×4 (07:52→21:19)
[2020-12-21] MEDS: Ziprasidone 80 MG CAPSULE PO SCH ×2 (07:53→21:19)
[2020-12-21] MEDS: Furosemide 40 MG TABLET PO SCH (07:53)
[2020-12-21] MEDS: allopurinoL 100 MG TABLET PO SCH ×2 (07:53→21:19)
[2020-12-21] MEDS: DilTIAZem CD (24hr) 180 MG CAP.ER.24H PO SCH (10:45)
[2020-12-21] MEDS: Calcium Gluconate 1gm/50mL 1 GM/50 ML BAG IVPB SCH ×2 (11:23→12:10)
[2020-12-21] MEDS: Latanoprost 2.5 ML BOTTLE BOTH EYES SCH (21:19)
[2020-12-21] MEDS: Insulin LISPRO 300 UNITS/3 ML VIAL SUBQ SCH (21:19)
[2020-12-22 03:50] LABS: Basophils % 0.4 %; Eosinophils # 0.3 K/mcL (0.0-0.6); Eosinophils % 3.7 %; Hematocrit 27.5 % (37.5-50.1); Hemoglobin 8.1 g/dL (12.9-16.9); Lymphocytes % 27.9 %; Mean Corpuscular HGB Conc 29.5 g/dL (31.6-35.5); Mean Corpuscular Hemoglobin 27.1 pg (28.0-33.3); Mean Platelet Volume 10.7 fL (9.4-12.4); Monocytes # 0.5 K/mcL (0.0-1.3); Monocytes % 7.2 %; Neutrophils # 4.2 K/mcL (1.6-8.9); Platelet Count 193 K/mcL (140-400); Red Blood Count 2.99 M/mcL (4.19-5.50); Red Cell Distribution Width 14.4 % (11.5-14.5); Segmented Neutrophils % 59.8 %; White Blood Count 7.1 K/mcL (4.3-11.1)
[2020-12-22 04:07] LABS: Alanine Aminotransferase 4 Units/L (7-52); Albumin 2.7 g/dL (3.5-5.7); Albumin/Globulin Ratio 0.8 (1.1-2.2); Alkaline Phosphatase 111 Units/L (34-104); Aspartate Amino Transferase 9 Units/L (13-39); BUN/Creatinine Ratio 12 (6-26); Bilirubin,Total 0.2 mg/dL (0.3-1.0); Blood Urea Nitrogen 11 mg/dL (6-20); Calcium 8.9 mg/dL (8.6-10.3); Carbon Dioxide 23 mEq/L (23-29); Chloride 107 mEq/L (98-107); Globulin 3.3 g/dL (2.4-3.5); Glucose 144 mg/dL (70-105); Magnesium 1.8 mg/dL (1.6-2.6); Osmolality,Calculated 288 (280-300); Phosphorous 4.2 mg/dL (2.7-4.5); Potassium 3.9 mEq/L (3.5-5.1); Sodium 138 mEq/L (136-145); eGFR For African Americans > 60 (> 60); eGFR For Non-African Americans > 60 (> 60)
[2020-12-22] MEDS: Ipratropium/Albuterol Neb 3 ML IH SCH ×4 (04:18→22:18)
[2020-12-22] MEDS: *HR* Enoxaparin 40 MG/0.4 ML SYRINGE SQ SCH (05:51)
[2020-12-22] MEDS: Insulin LISPRO 300 UNITS/3 ML VIAL SUBQ SCH ×4 (09:29→21:14)
[2020-12-22] MEDS: Furosemide 40 MG TABLET PO SCH (09:50)
[2020-12-22] MEDS: Multivit/Ca/Min/Fe/FA 1 TAB TABLET PO SCH (09:50)
[2020-12-22] MEDS: clonazePAM 1 MG TABLET PO SCH ×4 (09:51→21:14)
[2020-12-22] MEDS: QUEtiapine Fumarate 100 MG TABLET PO SCH ×4 (09:56→21:11)
[2020-12-22] MEDS: allopurinoL 100 MG TABLET PO SCH ×2 (09:58→21:15)
[2020-12-22] MEDS: polyethylene glycoL 3350 17 GM POWD.PACK PO SCH (09:59)
[2020-12-22] MEDS: DilTIAZem CD (24hr) 180 MG CAP.ER.24H PO SCH (12:35)
[2020-12-22] MEDS: Ziprasidone 80 MG CAPSULE PO SCH ×2 (12:37→21:15)
[2020-12-22] MEDS: Sennosides/Docusate Sodium TABLET PO SCH (21:10)
[2020-12-22] MEDS: Latanoprost 2.5 ML BOTTLE BOTH EYES SCH (21:15)
[2020-12-23 03:08] LABS: Basophils % 0.5 %; Eosinophils # 0.2 K/mcL (0.0-0.6); Eosinophils % 2.5 %; Hematocrit 26.4 % (37.5-50.1); Hemoglobin 7.8 g/dL (12.9-16.9); Immature Granulocytes % 1.5 % (0-4); Lymphocytes # 2.1 K/mcL (0.6-4.6); Lymphocytes % 26.4 %; Mean Corpuscular HGB Conc 29.5 g/dL (31.6-35.5); Mean Corpuscular Hemoglobin 26.6 pg (28.0-33.3); Mean Corpuscular Volume 90.1 fL (83.0-100.0); Mean Platelet Volume 10.9 fL (9.4-12.4); Monocytes # 0.5 K/mcL (0.0-1.3); Monocytes % 6.8 %; Platelet Count 193 K/mcL (140-400); Red Blood Count 2.93 M/mcL (4.19-5.50); Red Cell Distribution Width 14.6 % (11.5-14.5); Segmented Neutrophils % 62.3 %
[2020-12-23 03:27] LABS: BUN/Creatinine Ratio 10 (6-26); Blood Urea Nitrogen 13 mg/dL (6-20); Calcium 8.7 mg/dL (8.6-10.3); Carbon Dioxide 24 mEq/L (23-29); Chloride 105 mEq/L (98-107); Glucose 150 mg/dL (70-105); Osmolality,Calculated 285 (280-300); Phosphorous 4.2 mg/dL (2.7-4.5); Sodium 136 mEq/L (136-145); eGFR For African Americans > 60 (> 60); eGFR For Non-African Americans > 60 (> 60)
[2020-12-23] MEDS: Ipratropium/Albuterol Neb 3 ML IH SCH ×4 (03:40→21:59)
[2020-12-23] MEDS: *HR* Enoxaparin 40 MG/0.4 ML SYRINGE SQ SCH (05:52)
[2020-12-23] MEDS: clonazePAM 1 MG TABLET PO SCH ×4 (07:59→19:34)
[2020-12-23] MEDS: Ziprasidone 80 MG CAPSULE PO SCH ×2 (07:59→19:35)
[2020-12-23] MEDS: DilTIAZem CD (24hr) 180 MG CAP.ER.24H PO SCH (07:59)
[2020-12-23] MEDS: Multivit/Ca/Min/Fe/FA 1 TAB TABLET PO SCH (07:59)
[2020-12-23] MEDS: allopurinoL 100 MG TABLET PO SCH ×2 (07:59→19:35)
[2020-12-23] MEDS: Sennosides/Docusate Sodium TABLET PO SCH ×2 (07:59→19:35)
[2020-12-23] MEDS: QUEtiapine Fumarate 100 MG TABLET PO SCH ×4 (07:59→19:35)
[2020-12-23] MEDS: Insulin LISPRO 300 UNITS/3 ML VIAL SUBQ SCH ×4 (08:00→19:36)
[2020-12-23] MEDS: polyethylene glycoL 3350 17 GM POWD.PACK PO SCH (08:00)
[2020-12-23] MEDS ORDERED: Saline Nasal Spray 44 ML BOTTLE NS PRN (08:22)
[2020-12-23] MEDS: Artificial Tears SOLN 15 ML BOTTLE BOTH EYES SCH ×2 (08:55→19:59)
[2020-12-23] MEDS: Latanoprost 2.5 ML BOTTLE BOTH EYES SCH (19:36)
[2020-12-24 03:45] LABS: Basophils # 0.1 K/mcL (0.0-0.2); Basophils % 0.6 %; Eosinophils # 0.2 K/mcL (0.0-0.6); Hematocrit 26.1 % (37.5-50.1); Hemoglobin 7.6 g/dL (12.9-16.9); Immature Granulocytes % 1.8 % (0-4); Lymphocytes # 2.4 K/mcL (0.6-4.6); Lymphocytes % 26.8 %; Mean Corpuscular HGB Conc 29.1 g/dL (31.6-35.5); Mean Corpuscular Hemoglobin 26.9 pg (28.0-33.3); Mean Corpuscular Volume 92.2 fL (83.0-100.0); Mean Platelet Volume 11.1 fL (9.4-12.4); Monocytes # 0.7 K/mcL (0.0-1.3); Monocytes % 7.4 %; Neutrophils # 5.6 K/mcL (1.6-8.9); Platelet Count 213 K/mcL (140-400); Red Blood Count 2.83 M/mcL (4.19-5.50); Red Cell Distribution Width 14.6 % (11.5-14.5); Segmented Neutrophils % 61.4 %; White Blood Count 9.1 K/mcL (4.3-11.1)
[2020-12-24] MEDS: Ipratropium/Albuterol Neb 3 ML IH SCH ×3 (03:49→15:24)
[2020-12-24 04:08] LABS: BUN/Creatinine Ratio 10 (6-26); Blood Urea Nitrogen 15 mg/dL (6-20); Calcium 8.8 mg/dL (8.6-10.3); Carbon Dioxide 24 mEq/L (23-29); Chloride 106 mEq/L (98-107); Glucose 129 mg/dL (70-105); Magnesium 1.8 mg/dL (1.6-2.6); Osmolality,Calculated 287 (280-300); Phosphorous 3.9 mg/dL (2.7-4.5); Potassium 3.9 mEq/L (3.5-5.1); Sodium 137 mEq/L (136-145); eGFR For African Americans > 60 (> 60); eGFR For Non-African Americans 51 (> 60)
[2020-12-24] MEDS: *HR* Enoxaparin 40 MG/0.4 ML SYRINGE SQ SCH (05:24)
[2020-12-24] MEDS: QUEtiapine Fumarate 100 MG TABLET PO SCH ×2 (08:18→11:45)
[2020-12-24] MEDS: clonazePAM 1 MG TABLET PO SCH ×2 (08:18→11:45)
[2020-12-24] MEDS: Multivit/Ca/Min/Fe/FA 1 TAB TABLET PO SCH (08:19)
[2020-12-24] MEDS: allopurinoL 100 MG TABLET PO SCH (08:19)
[2020-12-24] MEDS: Sennosides/Docusate Sodium TABLET PO SCH (08:19)
[2020-12-24] MEDS: DilTIAZem CD (24hr) 180 MG CAP.ER.24H PO SCH (08:19)
[2020-12-24] MEDS: polyethylene glycoL 3350 17 GM POWD.PACK PO SCH (08:19)
[2020-12-24] MEDS: Ziprasidone 80 MG CAPSULE PO SCH (08:19)
[2020-12-24] MEDS: Insulin LISPRO 300 UNITS/3 ML VIAL SUBQ SCH ×2 (08:20→11:45)
[2020-12-24] MEDS: Artificial Tears SOLN 15 ML BOTTLE BOTH EYES SCH (08:21)
[2020-12-24 10:18] VITALS: BP 130/83
== END 2020-12-24 15:36 | disposition home health service (06) | DRG 380 ==
LOC: 3NENU 15:41 → EMEROOARM 15:41 → SUATTDRO 22:15 → 3NENU 23:00 → SUATTDRO 12-16 19:10 → 2ANU 12-21 13:57
PROVIDERS: ADMIT Student in an Organized Health Care Education/Training Program; ATTEND Internal Medicine